=== PATIENT | female | born 1945 | race Caucasian/White ===

== ENCOUNTER 2020-06-05 12:22 | Outpatient (REF) | payer SELFPAY | END 2020-06-05 12:23 | disposition home or self-care (01) | LOC: HO.HAP 12:22 | PROVIDERS: Visit Provider Internal Medicine | DX: Z46.1 Encounter for fitting and adjustment of hearing aid (principal) | CPT/HCPCS: V5264 ==

== ENCOUNTER 2020-09-28 11:59 | Outpatient (REF) | payer MEDICARE, SELFPAY ==
--- NOTE | ~2020-09-28 | MM_ITS ---
EXAMINATION: MM SCREENING DIGITAL BREAST TOMOSYNTHESIS, BILATERAL CLINICAL INFORMATION: Screening. Asymptomatic. The lifetime risk of breast cancer based on the Tyrer-Cuzick Model is 6%. COMPARISON: Mammography: 09/23/2019, 09/20/2018, 06/12/2017 TECHNIQUE: Digital breast tomosynthesis is performed in both the craniocaudal and mediolateral oblique views along with computer-aided detection (CAD). Synthesized 2D images are generated from the tomosynthesis. Additional right CC and left MLO views are provided. FINDINGS: There are scattered areas of fibroglandular density (ACR BI-RADS breast composition Category b). There are no significant masses, abnormal calcifications, or other abnormalities. Parenchymal pattern is similar to prior studies. No developing density. No significant changes. MM/MM tomosynthesis screening BI IMPRESSION: No mammographic evidence of malignancy. ASSESSMENT: BI-RADS 1: Negative RECOMMENDATION: Routine annual mammography screening. This patient's information was entered into a reminder system with a target due date for their next mammogram.
== END 2020-09-28 12:00 | disposition home or self-care (01) ==
LOC: HO.MAMMO 11:59
PROVIDERS: PCP Internal Medicine; Visit Provider Internal Medicine
DX: Z12.31 Encounter for screening mammogram for malignant neoplasm of breast (principal)
CPT/HCPCS: 77063; 77067

== ENCOUNTER 2021-03-05 12:11 | Outpatient (REF) | payer SELFPAY | END 2021-03-05 12:12 | disposition home or self-care (01) | LOC: HO.HAP 12:11 | PROVIDERS: Visit Provider Internal Medicine | DX: Z46.1 Encounter for fitting and adjustment of hearing aid (principal); H90.3 Sensorineural hearing loss, bilateral | CPT/HCPCS: 99499 ==

== ENCOUNTER 2021-04-11 09:43 | Outpatient (REF) | payer MEDICARE, SELFPAY ==
--- NOTE | 2021-04-15 10:21 | MHC.AU.AHA ---
Adult Audiological Evaluation Date of Visit: 04/15/21 Reason for Appointment: History of asymmetrical hearing loss, secondary to Meniere's Disease. She arrives today to determine if there has been a change in hearing. Patient reports that she continues to experience tinnitus and dizziness. Previous Hearing Test Results: At this clinic on 07/20/2019- Right: Moderately-severe to severe sensorineural hearing loss. Left: Severe to profound sensorineural hearing loss. Ear History: Recent Ear Drainage: None Reported Recent Ear Pain: None Reported Recent Ear Infections: None Reported Medical History: Medical History: Meniere's Disease, Hypertension Hearing Instrument History- Right Ear: Rehabilitation Engineer: PhonSoteria Systems Model: Audeo V 90-13 Serial Number: [id number] Battery Size: 13 Dispensed By: [facility] Date of Fittin09/18/2015 Hearing Instrument History- Left Ear: Rehabilitation Engineer: Phonak Model: CROS II - 13 Serial Number: [id number] Battery Size: 13 Dispensed By: [facility] Date of Fittin09/18/2015 Otoscopy: Right Ear: Unremarkable Left Ear: Unremarkable Hearing Evaluation: Transducer(s) Used: Insert Earphones Method: Conventional Audiometry Stimuli Used: Pure Tones Right Ear: Description of Hearing: Moderately-severe to severe sensorineural hearing loss Left Ear: Description of Hearing: Severe to profound sensorineural hearing loss Speech Recognition Threshold (SRT): Method Used: Recorded Lists Stimuli Used: Spondee Words Right Ear: 65 dBHL Left Ear: 100 dBHL Word Discrimination: Method: Recorded Lists Word Lists Used: W-22 Right Ear: 60% at 90 dBHL Left Ear: Did not test (Established history of 0% word discrimination) Most Comfortable Level (MCL): Right Ear: 90 dBHL Left Ear: With monitored live voice, patient felt 100 dBHL was loud, but tolerable. With recorded stimuli during word discrimination, patient preferred 95 dBHL. Aided Testing: Aided word discrimination at 55 dBHL in soundfield is 80%. Comparison: Compared to the most recent evaluation: Hearing is stable. Recommendations: Audiological re-evaluation in one year. Hearing aid maintenance performed today. Hearing aid adjustments made at patient's request. She reports that certain sounds, such as planes flying overhead or fans, are too loud. She also feels when she is in a noisy setting that she is hearing more background noise than speech. Increased NoiseBlock. Lowered Loud gain by 3 steps. Patient will call if further adjustments are necessary. Patient is also interested in a new pair of hearing aids. She would like to try a different package lift operator other than Phonak, and would like to return to using two traditional hearing aids instead of a BiCROS system. Although there is poor word discrimination in the left ear, she misses having auditory input from the left side to help with localization and environmental awareness. Binaural word discrimination was tested today, which showed that auditory input into the left ear did not interfere or distract from speech understanding. She is interested in trying the Oticon More; however, it is currently only available in the rechargeable version. She would prefer the version with the disposable batteries, which Oticon will be releasing within the next few months. When they are released, she would like to come in to discuss them and trial them if possible. Patient also expressed that she does not feel her Meniere's Disease has been adequately addressed or managed by Ear, Nose, and Throat providers she has seen in the past. Recommended consulting with another specialty practice, such as [facility] in [place]. Diagnosis: Primary Diagnosis: H90.3 Bilateral Sensorineural Hearing Loss Signature: Provider: Aaron Barton, CCC-A
== END 2021-04-11 09:44 | disposition home or self-care (01) ==
LOC: HO.SH 09:43
PROVIDERS: Visit Provider Internal Medicine
DX: H90.3 Sensorineural hearing loss, bilateral (principal)
CPT/HCPCS: 92557

== ENCOUNTER 2021-04-11 10:54 | Outpatient (REF) | payer SELFPAY | END 2021-04-11 10:55 | disposition home or self-care (01) | LOC: HO.HAP 10:54 | PROVIDERS: Visit Provider Internal Medicine | DX: Z46.1 Encounter for fitting and adjustment of hearing aid (principal); H90.3 Sensorineural hearing loss, bilateral | CPT/HCPCS: 92700 ==

== ENCOUNTER 2021-04-22 08:55 | Outpatient (REF) | payer SELFPAY | END 2021-04-22 08:56 | disposition home or self-care (01) | LOC: HO.HAP 08:55 | PROVIDERS: Visit Provider Internal Medicine | DX: Z13.89 Encounter for screening for other disorder (principal) ==

== ENCOUNTER 2021-05-02 13:21 | Outpatient (REF) | payer SELFPAY ==
--- NOTE | 2021-05-02 14:34 | MHC.AU.FUR ---
Hearing Instrument Follow-Up Date of Visit: 05/02/21 Fish Housekeeper Used: Not Applicable Right Ear: Business Records Manager: Phonak Model: Audeo V 90-13 Serial Number: [id number] Repair Warranty: 11/11/2018 Battery Size: 13 Color: Silver Nguyen Waiter/Waitress Captain: #3 Power Type of Mold: Phonak Canal Lock Slim Tip#[id number] Warranty 09/23/2020 Type of Wax Guard: Cerustop Dispensed By: [facility] Date of Fittin09/18/2015 Follow-Up Summary: Patient has been wearing her most recent Phonak ITE aids while current right aid out for repair. The right aid is causing a sore with bleeding. Patient wants to wear her old 2006 Phonak YTR aids, but they are not updated to her most recent audiogram. Reprogrammed the 2006 ITEs to news audiogram; however, the right ear is very sore and she won't be able to use it for several days. Set up loaner Audeo P 13-T trial aids with #2 power receivers and medium power domes for both ears to use until at least the ear heals. Recommendations (Other): Will be calling patient with quote for right Audeo V 90 when received. Diagnosis Code(s): Primary Diagnosis: H90.3 Bilateral Sensorineural Hearing Loss Services Performed: HUBER Non-Quantity Charges: HANC: NonBillable Event Signature: Provider: Juan David White, [facility]
== END 2021-05-02 13:22 | disposition home or self-care (01) ==
LOC: HO.HAP 13:21
PROVIDERS: Visit Provider Internal Medicine
DX: Z13.89 Encounter for screening for other disorder (principal)

== ENCOUNTER 2021-05-07 09:36 | Outpatient (REF) | payer MEDICARE, SELFPAY ==
[2021-05-07 11:25] LABS: MANUAL DIFF FLAG NO
[2021-05-07 11:32] LABS: Appearance Urine CLEAR; Color Urine YELLOW; Glucose Urine UA NEG (NEG); Leukocyte Esterase Urine 1+ (NEG); Nitrite Urine NEG (NEG); Specific Gravity - Urine 1.015 (1.005-1.025); UACC Culture Trigger YES; Urine Blood NEG (NEG); Urine Ketones NEG (NEG); Urine Protein NEG (NEG-TRACE)
[2021-05-07 11:40] LABS: Basophils Percent Auto 0.5 % (0-2); Eosinophils Absolute Auto 0.1 X10*3/uL (0.0-0.4); Eosinophils Percent Auto 1.5 % (0-4); Hematocrit 43.7 % (37-47); Hemoglobin 14.2 g/dl (12.0-16.0); Lymphocytes Absolute Auto 1.4 X10*3/uL (1.2-4.9); Lymphocytes Percent Auto 36.2 % (20-40); Mean Corpuscular HGB Conc 32.5 g/dl (31.0-35.0); Mean Corpuscular Hemoglobin 30.5 pg (27.0-33.0); Mean Corpuscular Volume 93.8 fL (80-98); Mean Platelet Volume 12.6 fL (9.4-12.3); Monocytes Absolute Auto 0.4 X10*3/uL (0.1-1.2); Neutrophils Absolute Auto 2.1 X10*3/uL (2.0-8.3); Neutrophils Percent Auto 52.8 % (45-73); Platelet Count 173 X10*3/uL (160-400); Red Blood Count 4.66 X10*6/uL (4.20-5.50); Red Cell Distribution Width 13.2 % (11.0-16.0); White Blood Count 3.9 X10*3/uL (4.8-10.8)
[2021-05-07 11:49] LABS: Alanine Aminotransferase 10 U/L (0-31); Alkaline Phosphatase 96 U/L (39-117); Anion Gap 14 (12-20); Aspartate Amino Transferase 15 U/L (5-31); Blood Urea Nitrogen 9 mg/dL (9-16); Calcium 9.4 mg/dL (8.4-10.2); Carbon Dioxide 23 mmol/L (22-29); Chloride 110 mmol/L (96-108); Cholesterol 202 mg/dL; Estimated Glomerular Filt Rate 58; Glucose Random 101 mg/dL (60-115); HDL Cholesterol 75 mg/dL; LDL Cholesterol Calculated 103 mg/dl; Sodium 143 mmol/L (135-145); Total Protein 6.3 g/dL (6.5-8.0); Triglycerides 120 mg/dL
[2021-05-07 11:51] LABS: RBC Urine 0 /HPF (0); Squamous Epithelial Cell Urine 1+ /LPF; WBC Urine 0-2 /HPF (0-4)
[2021-05-07 11:57] LABS: Free T4 (Free Thyroxine) 0.97 ng/dL (0.71-1.85); Thyroid Stimulating Hormone 1.23 uIU/mL (0.32-4.0)
[2021-05-07 11:59] LABS: ~Hepatitis C Antibody Nonreactive (Nonreactive)
[2021-05-07 12:08] LABS: Vitamin B12 360 pg/mL (200-900)
== END 2021-05-07 09:37 | disposition home or self-care (01) ==
LOC: HO.HMGCLDS 09:36
PROVIDERS: PCP Internal Medicine; Visit Provider Internal Medicine
DX: Z11.59 Encounter for screening for other viral diseases (principal); I10 Essential (primary) hypertension; E78.00 Pure hypercholesterolemia, unspecified; K21.9 Gastro-esophageal reflux disease without esophagitis; R35.1 Nocturia; E53.8 Deficiency of other specified B group vitamins
CPT/HCPCS: 36415; 80053; 80061; 81001; 82306; 82607; 84439; 84443; 85025; 86803; 87086; 87147

== ENCOUNTER 2021-05-10 10:00 | Outpatient (REF) | payer SELFPAY ==
--- NOTE | 2021-05-10 10:58 | MHC.AU.FUR ---
Hearing Instrument Follow-Up Date of Visit: 05/10/21 Right Ear: Waiter/Waitress Cabin Class: Phonak Model: Audeo V 90-13 Serial Number: [id number] Repair Warranty: 04/30/2022 Battery Size: 13 Color: Silver Nguyen Personal Development Mentor: #3 Power Type of Mold: Phonak Canal Lock Slim Tip, #[id number], Warranty 04/30/2022 Type of Wax Guard: Cerustop Dispensed By: [facility] Date of Fittin09/18/2015 Follow-Up Summary: Right hearing aid repair set to last settings and fit to patient with patient reporting improved sound quality. She did not bring the left CROS aid, so told her she will likely need to schedule another appointment to pair the CROS to the Audeo V 90-13T. Patient is considering just wearing the right aid, but she will schedule an appointment if needed. Discussed how Sherman did not read my repair form notes, so aid problem was not diagnosed. Invoice which came with the repair had charges for the hearing aid repair and the canal lock slim tip. Repair was not requested for the canal lock on the repair form. Spoke with and e-mailed Sherman Machado, who credited the repair in full and the repair is valid warranty until 04/30/2022. Recommendations: Hearing instrument follow-up or maintenance as needed. Please contact our clinic with any questions or concerns. Diagnosis Code(s): Primary Diagnosis: H90.3 Bilateral Sensorineural Hearing Loss Services Performed: HUBER Non-Quantity Charges: HANC: NonBillable Event Signature: Provider: GIOVANI Duncan
== END 2021-05-10 10:01 | disposition home or self-care (01) ==
LOC: HO.HAP 10:00
PROVIDERS: Visit Provider Internal Medicine
DX: Z13.89 Encounter for screening for other disorder (principal)

== ENCOUNTER 2021-06-21 09:11 | Outpatient (REF) | payer MEDICARE, SELFPAY ==
--- NOTE | ~2021-06-21 | MM_ITS ---
EXAMINATION: BONE DENSITOMETRY CLINICAL INDICATION: Postmenopausal estrogen deficiency. COMPARISON: Previous BD dated 06/29/2015 and baseline BD dated 07/25/2008. TECHNIQUE: Using a [employer] DXA System (software version: 13.1) manufactured by [employer], dual-energy x-ray absorptiometry was performed of the lumbar spine and left hip. The images are of good technical quality. Summary results are attached. FINDINGS: AP SPINE L1-L4: Current: BMD 0.987 g/cm2, Z-score -0.4, T-score -1.6, osteopenia, 2.9% decrease from previous, 9.2% decrease from baseline (<5% change is not significant). Prior: BMD 1.017 g/cm2. Baseline: BMD 1.087 g/cm2. LEFT FEMUR, NECK: Current: BMD 0.779 g/cm2, Z-score -0.2, T-score -1.9, osteopenia. Prior: BMD 0.833 g/cm2. Baseline: BMD 0.872 g/cm2. LEFT FEMUR, TOTAL: Current: BMD 0.775 g/cm2, Z-score -0.3, T-score -1.8, osteopenia, 9.8% decrease from previous, 16.6% decrease from baseline (<5% change is not significant). Prior: BMD 0.859 g/cm2. Baseline: BMD 0.929 g/cm2. IDENTIFIED RISK FACTORS: Menopause, height loss, low calcium intake, right oophorectomy. HISTORY OF FRACTURE: None listed. MEDICATIONS: None listed. MM/XR DEXA axial skeleton IMPRESSION: 1. DIAGNOSIS: Osteopenia based on the lowest T-score value of -1.9 in the femoral neck applying World Health Organization criteria. 2. 10-YEAR FRACTURE RISK PREDICTION, FRAX: Major osteoporotic fracture (clinical spine, forearm, hip or shoulder) 14.4%. Hip fracture 3.8%. 3. Treatment Recommendations: NOF guidelines recommend consideration for treatment in postmenopausal women and men age 50 and older presenting with the following: -A hip or vertebral (clinical or morphometric) fracture. -T-score less than or equal to -2.5 at the femoral neck or spine after appropriate evaluation to exclude secondary causes. -Low bone mass at the hip or spine and a 10-year fracture probability by FRAX of greater than or equal to 3% for hip fracture or greater than or equal to 20% for major osteoporotic fracture based on the [place] adapted WHO algorithm. 4. Other Recommendations: All treatment decisions require clinical judgment and consideration of individual patient factors, including patient preferences, comorbidities, previous drug use, risk factors not captured in the FRAX model (e.g. frailty, falls, vitamin D deficiency, increased bone turnover, interval significant decline in bone density) and possible under or overestimation of fracture risk by FRAX. Additional medical evaluation for secondary cause of low bone mineral density may be appropriate. FUTURE SCAN RECOMMENDATION: People with diagnosed cases of osteoporosis or at high risk for fracture should have regular bone mineral density tests. For patients eligible for Medicare, routine testing is allowed once every 2 years. The testing frequency can be increased to one year for patients who have rapidly progressing disease, those who are receiving or discontinuing medical therapy to restore bone mass, or have additional risk factors.
== END 2021-06-21 09:12 | disposition home or self-care (01) ==
LOC: HO.MAMMO 09:11
PROVIDERS: Visit Provider Internal Medicine
DX: Z13.820 Encounter for screening for osteoporosis (principal); M85.80 Other specified disorders of bone density and structure, unspecified site; Z78.0 Asymptomatic menopausal state
CPT/HCPCS: 77080

== ENCOUNTER 2021-10-01 12:31 | Outpatient (REF) | payer SELFPAY ==
--- NOTE | 2021-10-02 11:37 | MHC.AU.HFU ---
Hearing Instrument Follow-Up- Binaural Date of Visit: 10/01/21 Right Ear: Vocational Rehabilitation Consultant: Phonak Model: Audeo V 90-13 Serial Number: [id number] Repair Warranty: 04/30/2022 Battery Size: 13 Color: Silver Nguyen Straight Tooth Gear Generator Operator: #1 Power Stretched with heat (Changed from #3 power today) Type of Mold: Phonak Canal Lock Slim Tip #[id number] Warranty 04/30/2022 Type of Wax Guard: Cerustop Dispensed By: [facility] Date of Fittin09/18/2015 Left Ear: Vocational Rehabilitation Consultant: Phonak Model: CROS II - 13 Serial Number: [id number] Repair Warranty: 11/11/2016 Battery Size: 13 Color: Silver Nguyen Straight Tooth Gear Generator Operator: #3 Type of Dome: Small open Dispensed By: [facility] Date of Fittin09/18/2015 Follow-Up Summary: Hearing Aid Problem - Patient reports last programming was initially OK , but then started having more trouble in June 2021. Manual program #1 she is in most of the time, but low pitched sounds such as motos, architectural intern are much too loud. Manual program #2 blocks background noise the best, but need voices/speech to be louder. Patient does not like Auto program at all. Patient also reports the right analysis mgr wire is too long with make aid move. Changed to right #1 power analysis mgr using heat to lengthen (patient given #3 power analysis mgr to hold). Performed maintenance with patient noticing improved sound quality. Made several changes, which mostly revolved around reducing the CRs for all programs, decreasing lows, and increasing high frequencies. Patient discussed being interested in possible Propeller Tester consultation at [facility]. Also discussed possible trial with new custom products. PATIENT WANTS TO RETURN TO BINAURAL HEARING AIDS RATHER THAN CROS SYSTEM. AT NEXT HEARING TEST, PERFORM BINAURAL SPEECH DISCRIMINATION. Recommendations: Patient will call if problems persist. Diagnosis Code(s): Primary Diagnosis: H90.3 Bilateral Sensorineural Hearing Loss Signature: Provider: Aaron White, [facility]
== END 2021-10-01 12:32 | disposition home or self-care (01) ==
LOC: HO.HAP 12:31
PROVIDERS: Visit Provider Internal Medicine
DX: Z13.89 Encounter for screening for other disorder (principal)

== ENCOUNTER 2021-10-04 10:52 | Outpatient (REF) | payer SELFPAY ==
--- NOTE | 2021-10-07 10:19 | MHC.AU.HFU ---
Hearing Instrument Follow-Up- Binaural Date of Visit: 10/04/21 Right Ear: Denial Resolution Specialist: Phonak Model: Audeo V 90-13 Serial Number: [id number] Repair Warranty: 04/30/2022 Battery Size: 13 Color: Silver Nguyen Unstacker: #3 Power Type of Mold: Phonak Canal Lock Slim Tip #[id number] Warranty 04/30/2022 Type of Wax Guard: Cerustop Dispensed By: [facility] Date of Fittin09/18/2015 Left Ear: Denial Resolution Specialist: Phonak Model: CROS II - 13 Serial Number: [id number] Repair Warranty: 11/11/2016 Battery Size: 13 Color: Silver Nguyen Unstacker: #3 Dispensed By: [facility] Date of Fittin09/18/2015 Follow-Up Summary: Patient reports that the size 1 curator zoological museum recently put on the right hearing aid is too short and has been pulling the mold out. She would like to switch it back to the size 3, which she brought with her today. The curator zoological museum was switched, and patient was pleased with the fit. She reports that the adjustments made at the last appointment have been great. Her only concern is that when she backs up her car, she can no longer hear the beeps that alert her she is getting close to something. She thinks the noise reduction may need to be backed off slightly. She does not want the first two programs changed at all since they have been working well. In the third program, NoiseBlock was reduced from 20 to 17. Patient will let us know if further adjustments are needed. Recommendations: Recommendations: Hearing instrument follow-up or maintenance as needed. Diagnosis Code(s): Primary Diagnosis: H90.3 Bilateral Sensorineural Hearing Loss Signature: Provider: Aaron Barton, [facility]
== END 2021-10-04 10:53 | disposition home or self-care (01) ==
LOC: HO.HAP 10:52
PROVIDERS: Visit Provider Internal Medicine
DX: Z13.89 Encounter for screening for other disorder (principal)

== ENCOUNTER 2021-11-06 09:16 | Outpatient (REF) | payer MEDICARE, SELFPAY ==
--- NOTE | ~2021-11-06 | CT_ITS ---
EXAMINATION: CT SINUS WITHOUT CONTRAST CLINICAL INFORMATION: Chronic sinusitis. Deviated septum. COMPARISON: None TECHNIQUE: 2 mm thin axial and reformatted 2 mm thin sagittal and coronal images of sinuses were obtained. This CT examination was performed using dose optimization techniques as appropriate, variously including the following: *Automated exposure control *Adjustment of mA and/or kV according to patient size (this includes techniques or standardized protocols for targeted exams where dose is matched to indication/reason for exam; i.e. extremities or head) *Use of iterative reconstruction technique DLP: 110 mGy-cm FINDINGS: FRONTAL SINUSES AND DRAINAGE PATHWAYS: Bilateral frontal sinuses are widely patent. The drainage pathways are patent.. MAXILLARY SINUSES AND DRAINAGE PATHWAYS: There is a small polyp in the floor of right maxillary sinus. The left maxillary sinus is clear. The ostiomeatal complexes are widely patent.. ETHMOID SINUSES: Normal. The ethmoid roofs are symmetric, with olfactory fossa depth of 0.5 on the right and 0.5 on the left. SPHENOID SINUSES AND DRAINAGE PATHWAYS: Normal. The sphenoid ostia are patent. The carotid canals are covered by bone. NASAL CAVITY/NASOPHARYNX: The nasal cavity is clear. There is there is mild deviation of nasal septum to the left. The nasopharynx is symmetric. ADDITIONAL RELEVANT FINDINGS: No periapical disease is seen. The TMJs articulate normally. The orbits and skull base soft tissues are unremarkable. The middle ear cavities and mastoid air cells are clear. Limited evaluation demonstrates no acute intracranial findings. CT/CT sinus wo con IMPRESSION: Small polyp or retention cyst floor of right maxillary sinus. Rest of the sinuses are clear. There is mild deviation of nasal septum to the left.
== END 2021-11-06 09:17 | disposition home or self-care (01) ==
LOC: HO.CT 09:16
PROVIDERS: Visit Provider Internal Medicine
DX: J32.0 Chronic maxillary sinusitis (principal); J34.2 Deviated nasal septum
CPT/HCPCS: 70486

== ENCOUNTER 2021-12-26 13:04 | Outpatient (REF) | payer SELFPAY ==
--- NOTE | 2021-12-27 13:19 | MHC.AU.HFU ---
Hearing Instrument Follow-Up- Binaural Date of Visit: 12/26/21 Right Ear: Cylinder Valve Repairer: Phonak Model: Audeo V 90-13 Serial Number: [id number] Repair Warranty: 04/30/2022 Type of Wax Guard: Cerustop Dispensed By: [facility] Date of Fittin09/18/2015 Left Ear: Cylinder Valve Repairer: Phonak Model: CROS II - 13 Serial Number: [id number] Repair Warranty: 11/11/2016 Dispensed By: [facility] Date of Fittin09/18/2015 Follow-Up Summary: Patient is considering new hearing aids. She does not want to use a CROS system again. Hearing aid options were discussed. She is debating between trying a pair of hearing aids, or just using one on the right ear. Discussed that it would be probably be more beneficial to try a pair to start, as the left side can be returned in the trial period if she does not like it. Binaural word discrimination testing was performed at the last audiological evaluation and showed that the left ear does not seem to interfere with overall speech understanding. She would also like to return to a custom ITE/ITC style. She has some reservations with customs, however, as a pair she had in the past had caused pressure sores and needed to be remade several times. She indicated theses sores were mostly higher on the pinna. Discussed that we could still give it a try with a new set of impressions, and could do an ITC so it does not touch the part of the ear that was irritated before. She was interested in Bluetooth connectivity and use of an ashley for volume control. She has an iPhone. She is also debating between getting a mid-level or high-level product. She currently has a high-level product, but has had mid-levels in the past. Since the higher level products have more features that can be adjusted, she questions if maybe this is too much, and if she needs something simpler. She also asked if the dental equipment mechanic/mold that was switched at the last visit could be switched back to the dental equipment mechanic/mold from before. She reports that although the dental equipment mechanic wire causes discomfort, she can hear much better with that mold. The dental equipment mechanic on both molds is a size 3. She has been told in the past that she could try a size 2 dental equipment mechanic with it, but we do not have one in stock. Discussed that we do not routinely re-stock those receivers, as they are for an older model. If she would like, we could order one for $175. She would like more time to consider her options. She wants to try the hearing aid with the dental equipment mechanic/mold as it is for a few weeks. If she feels she is hearing better, she may decide to purchase a size 2 dental equipment mechanic to try. If she feels she still isn't hearing well enough, she may decide to go forward with a new pair of hearing aids. Impressions were taken bilaterally without incident and will kept in the Hold drawer until patient makes her decision. Initially, Raz hearing aids were discussed; however, it was later realized that the [employer] wireless customs only come in rechargeable. Patient does not want a rechargeable product. We may have to consider Phonak Virto P, Oticon OPN, or Signia Insio Nx, as those all have Bluetooth and regular batteries. Recommendations: Patient will contact us to discuss how she wants to proceed. Diagnosis Code(s): Primary Diagnosis: H90.3 Bilateral Sensorineural Hearing Loss Signature: Provider: Aaron Barton, CCC-A
== END 2021-12-26 13:05 | disposition home or self-care (01) ==
LOC: HO.HAP 13:04
PROVIDERS: Visit Provider Internal Medicine
DX: Z13.89 Encounter for screening for other disorder (principal)

== ENCOUNTER 2022-01-10 11:01 | Outpatient (REF) | payer SELFPAY | END 2022-01-10 11:02 | disposition home or self-care (01) | LOC: HO.HAP 11:01 | PROVIDERS: Visit Provider Internal Medicine | DX: Z46.1 Encounter for fitting and adjustment of hearing aid (principal) | CPT/HCPCS: 92591 ==

== ENCOUNTER 2022-01-10 11:31 | Outpatient (REF) | payer MEDICARE, SELFPAY ==
--- NOTE | ~2022-01-10 | MM_ITS ---
EXAMINATION: MM SCREENING DIGITAL BREAST TOMOSYNTHESIS, BILATERAL CLINICAL INFORMATION: Screening. Asymptomatic. The lifetime risk of breast cancer based on the Tyrer-Cuzick Model is 4%. COMPARISON: Mammography: 09/28/2020, 09/23/2019, 09/20/2018, 06/12/2017 TECHNIQUE: Digital breast tomosynthesis is performed in both the craniocaudal and mediolateral oblique views along with computer-aided detection (CAD). Synthesized 2D images are generated from the tomosynthesis. FINDINGS: There are scattered areas of fibroglandular density (ACR BI-RADS breast composition Category b). Right breast has a focal nodular asymmetric density just under 0.5 cm mid 8:30 o'clock position, representing change from prior studies. Patient will be recalled for additional imaging. The remainder of the breasts show parenchymal pattern is similar to prior studies. There is no abnormal calcifications. The axilla and skin contours are unremarkable. MM/MM tomosynthesis screening BI IMPRESSION: Right: -Focal asymmetric density just under 5 mm, mid 8:30 o'clock position. Left: -No mammographic evidence of malignancy. ASSESSMENT: BI-RADS 0: Incomplete - Need Additional Imaging Evaluation RECOMMENDATION: 1. Additional views of the right breast (spot CC, spot MLO, standard ML). 2. Targeted ultrasound right breast. 3. Radiology department staff will contact the patient for additional imaging. This patient's information was entered into a reminder system with a target due date for their next mammogram.
== END 2022-01-10 11:32 | disposition home or self-care (01) ==
LOC: HO.MAMMO 11:31
PROVIDERS: PCP Internal Medicine; Visit Provider Internal Medicine
DX: Z12.31 Encounter for screening mammogram for malignant neoplasm of breast (principal)
CPT/HCPCS: 77063; 77067

== ENCOUNTER 2022-01-27 08:42 | Outpatient (REF) | payer MEDICARE, SELFPAY ==
--- NOTE | ~2022-01-27 | US_ITS ---
EXAMINATION: MM DIAGNOSTIC DIGITAL BREAST TOMOSYNTHESIS, RIGHT Targeted right breast ultrasound CLINICAL INFORMATION: Right breast density laterally COMPARISON: Mammography: January 10, 2022 and studies dating back to July 12, 2012 TECHNIQUE: Digital breast tomosynthesis is performed. 2D images are generated from the tomosynthesis. The following views are obtained: 90 degree mediolateral full field view and spot compression views in craniocaudal and mediolateral oblique projections. Targeted right breast ultrasound. FINDINGS: There are scattered areas of fibroglandular density (ACR BI-RADS breast composition Category b). Additional views demonstrate persistence of a 5 x 4 mm density about the lateral aspect of the right breast. No associated microcalcifications are identified. Portions of the circumferential are somewhat irregular. This lies approximately 7 cm from the nipple. Targeted right breast ultrasound demonstrated at the 9:00 position approximately 6 cm from nipple a hypoechoic and irregularly marginated density which is taller than it is wide without distal sound enhancement or shadowing measuring 5 x 3 x 4 mm in size. No internal vascularity was appreciated. Recommend ultrasound-guided biopsy of this lesion. Results are discussed with the patient at time of visit. Mammography Center patient navigator will call referring physician's office with the above recommendation. US/US breast RT limited IMPRESSION: Right breast density laterally for which ultrasound-guided core biopsy is recommended. ASSESSMENT: BI-RADS 4: Suspicious RECOMMENDATION: Ultrasound-guided core biopsy right breast lesion.
--- NOTE | ~2022-01-27 | MM_ITS ---
EXAMINATION: MM DIAGNOSTIC DIGITAL BREAST TOMOSYNTHESIS, RIGHT TARGETED RIGHT BREAST ULTRASOUND CLINICAL INFORMATION: Right breast density laterally. COMPARISON: Mammography: 01/10/2022 and studies dating back to 07/12/2012. TECHNIQUE: Digital breast tomosynthesis is performed. 2D images are generated from the tomosynthesis. The following views are obtained: 90-degree mediolateral full field view and spot compression views in craniocaudal and mediolateral oblique projections. Targeted right breast ultrasound. FINDINGS: There are scattered areas of fibroglandular density (ACR BI-RADS breast composition Category b). Additional views demonstrate persistence of a 5 x 4 mm density about the lateral aspect of the right breast. No associated microcalcifications are identified. Portions of the circumference are somewhat irregular. This lies approximately 7 cm from the nipple. Targeted right breast ultrasound demonstrated at the 9 o'clock position approximately 6 cm from nipple a hypoechoic and irregularly marginated density, which is taller than it is wide, without distal sound enhancement or shadowing measuring 5 x 3 x 4 mm in size. No internal vascularity was appreciated. Recommend ultrasound-guided biopsy of this lesion. Results are discussed with the patient at time of visit. [facility]ography Center patient navigator will call referring physician's office with the above recommendation. MM/MM tomosynthesis added views R IMPRESSION: Right breast density laterally for which ultrasound-guided core biopsy is recommended. ASSESSMENT: BI-RADS 4: Suspicious. RECOMMENDATION: Ultrasound-guided core biopsy right breast lesion.
== END 2022-01-27 08:43 | disposition home or self-care (01) ==
LOC: HO.MAMMO 08:42
PROVIDERS: PCP Internal Medicine; Visit Provider Internal Medicine
DX: R92.2 Inconclusive mammogram (principal)
CPT/HCPCS: 76642; 77061; 77065

== ENCOUNTER → 2022-01-28 08:30 | Outpatient (BNVA) | payer MEDICARE, SELFPAY | PROVIDERS: PCP Internal Medicine; Visit Provider Surgery | DX: R92.8 Other abnormal and inconclusive findings on diagnostic imaging of breast (principal) | CPT/HCPCS: 99202 ==

== ENCOUNTER 2022-01-29 07:49 | Outpatient (REF) | payer MEDICARE, SELFPAY ==
--- NOTE | ~2022-01-29 | MM_ITS ---
PROCEDURE: US GUIDED BREAST BIOPSY, RIGHT CLINICAL INFORMATION: Indeterminate right breast density 9:00 position 6 cm from the nipple COMPARISON: January 27, 2022 PROCEDURAL DETAILS: The details of the procedure, as well as the risks, benefits, and alternatives to the procedure were explained to the patient in detail and all of her questions were answered, after which written informed consent was obtained. Site and side were confirmed. Prior to the procedure, sonography revealed an isoechoic solid-appearing lesion not o'clock position 6 cm from nipple measuring approximately 4 mm in diameter.. A time-out was performed, the lesion intended for biopsy was targeted, and the skin of the right breast was then prepped and draped in the usual sterile fashion. Using sonographic guidance, sterile technique, and 1% lidocaine without epinephrine for local anesthesia, multiple automated core biopsies were obtained through the targeted area with a 14G spring loaded Achieve core biopsy device. There was real-time confirmation of appropriate needle passage. Sampling was documented. At the completion of tissue sampling, a single butterfly-shaped metallic clip was deposited at the biopsy site. There was no evidence of immediate complication. SPECIMEN: An appropriate sample was obtained. DIGITAL POST-PROCEDURE MAMMOGRAPHY: Breast density: The tissue contains scattered areas of fibroglandular density. BI-RADS version 5, category B. There are no new mammographic findings demonstrated. The postprocedure 2-view direct digital mammogram reveals satisfactory positioning of the biopsy clip. The patient tolerated the procedure well and, after assuring adequate hemostasis, was discharged in good condition after reviewing postbiopsy breast care instructions. Final pathology results are pending. MM/MM tomosynthesis diagnostic RT IMPRESSION: 1. No immediate complication from ultrasound-guided percutaneous biopsy right breast. 2. Ultrasound was used to localize and guide marker clip placement. 3. The 2-view direct digital postprocedure mammogram reveals satisfactory positioning of the biopsy clip. 4. Final pathology results are pending. A separate report with final recommendations will be issued once these results are made available.
[2022-01-29] MEDS: Lidocaine HCl 1 % 20 ML VIAL 10 ML SUBCUT (09:06)
== END 2022-01-29 07:50 | disposition home or self-care (01) ==
LOC: HO.MAMMO 07:49
PROVIDERS: Visit Provider Surgery
DX: R92.8 Other abnormal and inconclusive findings on diagnostic imaging of breast (principal)
CPT/HCPCS: 19083; 77061; 77065; 88305; 88342; 88360

== ENCOUNTER → 2022-02-04 14:33 | Outpatient (BNVA) | payer MEDICARE, SELFPAY | PROVIDERS: PCP Internal Medicine; Visit Provider Surgery | DX: C50.411 Malignant neoplasm of upper-outer quadrant of right female breast (principal); Z17.0 Estrogen receptor positive status [ER+]; Z98.890 Other specified postprocedural states | CPT/HCPCS: 99212 ==

== ENCOUNTER 2022-02-07 09:47 | Outpatient (REF) | payer MEDICARE, SELFPAY ==
[2022-02-07 11:12] LABS: MANUAL DIFF FLAG NO
[2022-02-07 11:24] LABS: Basophils Absolute Auto 0.1 X10*3/uL (0.0-0.2); Basophils Percent Auto 1.2 % (0-2); Eosinophils Absolute Auto 0.1 X10*3/uL (0.0-0.4); Eosinophils Percent Auto 1.2 % (0-4); Hematocrit 44.6 % (37.0-47.0); Imm Gran Abs Auto 0.02 X10*3/uL (0.00-0.03); Imm Gran Pct Auto 0.4 % (0.0-0.4); Lymphocytes Absolute Auto 1.6 X10*3/uL (1.2-4.9); Lymphocytes Percent Auto 31.4 % (20-40); Mean Corpuscular HGB Conc 33.6 g/dl (31.0-35.0); Mean Corpuscular Hemoglobin 31.6 pg (27.0-33.0); Mean Corpuscular Volume 93.9 fL (80.0-98.0); Mean Platelet Volume 12.4 fL (9.4-12.3); Monocytes Absolute Auto 0.4 X10*3/uL (0.1-1.2); Monocytes Percent Auto 7.4 % (2-11); Neutrophils Absolute Auto 2.9 x10*3/uL (2.0-8.3); Neutrophils Percent Auto 58.4 % (45-73); Platelet Count 169 X10*3/uL (160-400); Red Blood Count 4.75 X10*6/uL (4.20-5.50); Red Cell Distribution Width 13.2 % (11.0-16.0)
[2022-02-07 11:32] LABS: Appearance Urine CLEAR; Color Urine YELLOW; Glucose Urine UA NEG (NEG); Leukocyte Esterase Urine TRACE (NEG); Nitrite Urine NEG (NEG); PH 6.5 (5.0-8.0); Urine Blood NEG (NEG); Urine Ketones NEG (NEG); Urine Protein NEG (NEG-TRACE)
[2022-02-07 11:50] LABS: Alanine Aminotransferase 12 U/L (0-31); Albumin Level 4.1 g/dL (3.5-5.0); Alkaline Phosphatase 100 U/L (39-117); Anion Gap 12 (12-20); Aspartate Amino Transferase 14 U/L (5-31); Bilirubin Total 0.8 mg/dL (0.0-1.0); Blood Urea Nitrogen 16 mg/dL (9-16); Calcium 9.4 mg/dL (8.4-10.2); Carbon Dioxide 27 mmol/L (22-29); Chloride 107 mmol/L (96-108); Cholesterol 205 mg/dL; Estimated Glomerular Filt Rate 52; Glucose Random 100 mg/dL (60-115); HDL Cholesterol 78 mg/dL; LDL Cholesterol Calculated 108 mg/dl; Potassium 4.2 mmol/L (3.3-5.1); Sodium 142 mmol/L (135-145); Total Protein 6.8 g/dL (6.5-8.0); Triglycerides 97 mg/dL
[2022-02-07 11:59] LABS: Thyroid Stimulating Hormone 1.21 uIU/mL (0.32-4.0); Vitamin D 25-OH Total 20.8 ng/mL (>30)
[2022-02-07 12:01] LABS: RBC Urine 0-2 /HPF (0); Squamous Epithelial Cell Urine TRACE /LPF; WBC Urine 0-2 /HPF (0-4)
[2022-02-07 12:02] LABS: Renal Epithelial Cells Urine TRACE /LPF
== END 2022-02-07 09:48 | disposition home or self-care (01) ==
LOC: HO.HMGCLDS 09:47
PROVIDERS: PCP Internal Medicine; Visit Provider Internal Medicine
DX: I10 Essential (primary) hypertension (principal); E78.00 Pure hypercholesterolemia, unspecified; E55.9 Vitamin D deficiency, unspecified
CPT/HCPCS: 36415; 80053; 80061; 81001; 82306; 84443; 85025

== ENCOUNTER 2022-02-07 12:35 | Outpatient (REF) | payer SELFPAY | END 2022-02-07 12:36 | disposition home or self-care (01) | LOC: HO.HAP 12:35 | PROVIDERS: Visit Provider Internal Medicine | DX: Z46.1 Encounter for fitting and adjustment of hearing aid (principal); H90.3 Sensorineural hearing loss, bilateral | CPT/HCPCS: V5259 ==

== ENCOUNTER 2022-02-10 06:36 | Day surgery (SDC) | payer MEDICARE, SELFPAY ==
--- NOTE | 2022-02-06 14:16 | P.CONAN_ITS ---
HPI - Anesthesia Eval Consult details Narrative: 77yo F for Right Breast Lumpectomy/Needle Loc, [place] Node Biopsy PMFSH Active Problems Active Problems: All Active Problems (Updated 02/04/22 @ 16:16 by Luis Fernando Batista MD) Invasive ductal carcinoma of right breast (Acute) Abnormal ultrasound of breast (Acute) Abnormal mammogram of right breast (Acute) Past Medical History Medical History GERD (gastroesophageal reflux disease) HLD (hyperlipidemia) HTN (hypertension) Meniere disease Migraines Family History Family History Father Lung cancer Maternal Aunt Breast cancer Uterine cancer Maternal Grandmother Throat cancer Maternal Uncle Throat cancer Surgical History Surgical History (Updated 02/10/22 @ 08:19 by Kathy Dunbar RN) History of appendectomy History of cholecystectomy History of D&C History of lumpectomy of left breast History of removal of ovarian cyst Hx of bilateral cataract extraction Social History Social History Alcohol intake: never Patient Tobacco Use Status: Never used Tobacco Meds Allergies Allergy/AdvReac Type Severity Reaction Status Date / Time clindamycin [CLINDAMYCIN] Allergy Severe SEVERE RASH Verified 02/10/22 07:12 cefaclor [From CECLOR] Allergy Intermediate RASH Verified 02/10/22 07:12 hydrochlorothiazide Allergy Intermediate MUSCLE Verified 02/10/22 07:12 [HYDROCHLOROTHIAZIDE] CRAMPING Ceclor Allergy Unknown rash Uncoded 02/04/22 14:42 HCTZ Allergy Unknown rash Uncoded 02/04/22 14:42 Home Medications Medication Instructions Recorded Confirmed Last Taken Type atenolol 25 mg tablet 25 mg PO DAILY 01/28/22 02/10/22 02/10/22 05:45 History atorvastatin 20 mg tablet 20 mg PO DAILY 01/28/22 02/10/22 Unknown History qnntuumngd-vmrdqnannsqrp-nizokkxt 1 tab PO Q4H 01/28/22 02/10/22 Unknown History 50 mg-325 mg-40 mg tablet lorazepam 0.5 mg tablet 0.5 mg PO BID PRN Anxiety 01/28/22 02/10/22 Unknown History meclizine 25 mg tablet 25 mg PO TID 01/28/22 02/10/22 Unknown History Exam Exam Date and Time: February 06, 2022 1416 Assessment and Plan Assessment Anesthesia Assessment: Chart Reviewed
[2022-02-10] VITALS (8 sets, daily range): BP systolic 122–180; BP diastolic 66–90; PULSE 61–81; RESP 16–18; TEMP 35.9–36.3; O2SAT 92–98; BMI 27.6
--- NOTE | ~2022-02-10 | NM_ITS ---
PROCEDURE: NM LYMPH SCINTIGRAPHY CLINICAL INFORMATION: Right breast malignant neoplasm. COMPARISON: None TECHNIQUE: Following explaining right breast sentinel node procedure, benefits and risk, a written consent was obtained by Dr. Wen. The area around the right areola was coated with 0.4% lidocaine for 30 minutes post right breast needle localization. The area around the right breast areola was then cleaned in an aseptic manner. 0.5 mCi of 99m technetium lymphocytic divided in 4 equal doses was subcutaneously injected in 4 quadrants around the right breast areola. Imaging was obtained 30 minutes later. Patient tolerated procedure extremely well. FINDINGS: On right breast [place] imaging there are 4 areas of activity seen around the areola. There is a solitary sentinel node seen in the right anterior axilla. No additional lymph node seen. NM/NM sentinel node w imaging IMPRESSION: Solitary right axillary lymph node on right breast [place] node study.
--- NOTE | ~2022-02-10 | MM_ITS ---
EXAMINATION: MM MAMMOGRAM GUIDED NEEDLE LOCALIZATION BREAST, RIGHT MM NEEDLE LOCALIZATION SPECIMEN FROM THE RIGHT BREAST CLINICAL INFORMATION: Invasive carcinoma with ductal and lobular features right breast. 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 COMPARISON: Mammography 01/10/2022, 01/27/2022, 01/29/2022, targeted right breast ultrasound 01/27/2022, ultrasound-guided core biopsy 01/29/2022 TECHNIQUE NEEDLE LOC: Proper informed consent is obtained from the patient after discussion of the procedure, potential risks and complications, and alternatives including declining the procedure today. Patient was given an opportunity for questions. The patient appeared to understand. The patient consented to the procedure and signed the consent form. GUIDANCE: Digital mammography. APPROACH: Lateral Medial. TARGET: Small nodular asymmetric density with superimposed biopsy clip marker. ANESTHESIA: Carbonated lidocaine 1%: 5 mL. LOCALIZATION MARKER: [place] M[employer]. 7.5 cm length. The skin is prepped and local anesthesia administered. The needle is positioned and position assessed with mammography. The wire is hooked into position. [place] needle protector placed. The patient tolerated the procedure well and had no immediate complication. Following the procedure, 4% lidocaine ointment was administered to the left areola and covered with Tegaderm in anticipation of nuclear lymphoscintigraphy injection for sentinel lymph node mapping. Procedure results called to medical records assistant (Kamilla) for Dr. Batista following the procedure. TECHNIQUE SPECIMEN RADIOGRAPH: Imaging of the excised specimen is performed using digital mammography in 2 views. FINDINGS SPECIMEN RADIOGRAPH: The distal localization needle and distal hookwire are delivered intact within the specimen. The proximal needle and hookwire are previously sectioned in the OR. The biopsy clip marker and parenchymal nodule representing the primary lesion are within the specimen adjacent to the localization device. Results were called to Dr. Luis Fernando Batista in the operating room at the time of imaging. MM/MM needle loc RT IMPRESSION: 1. Status post right breast needle localization with wire hooked into position. 2. Post operative specimen radiograph obtained.
[2022-02-10] MEDS: Lactated Ringers 1,000 ML 100 ML IVCONT (08:03)
[2022-02-10] MEDS: Lidocaine HCl 1 % 20 ML VIAL 9 ML SUBCUT (09:03)
[2022-02-10] MEDS: Sodium Bicarbonate 8.4% 50 MEQ/50 ML VIAL SUBCUT (09:05)
--- NOTE | 2022-02-10 10:29 | HO.ANESPROP2 ---
[facility] Active Problems Active Problems: All Active Problems (Updated 02/06/22 @ 14:18 by Ryanne Amaya NP) Abnormal mammogram of right breast (Acute) Abnormal ultrasound of breast (Acute) Invasive ductal carcinoma of right breast (Acute) Past Medical History Medical History GERD (gastroesophageal reflux disease) HLD (hyperlipidemia) HTN (hypertension) Meniere disease Migraines Patient : No Family History Family History Father Lung cancer Maternal Aunt Breast cancer Uterine cancer Maternal Grandmother Throat cancer Maternal Uncle Throat cancer Family history of problems with anesthesia: No Surgical History Surgical History (Updated 02/10/22 @ 08:19 by Kathy Dunbar RN) History of appendectomy History of cholecystectomy History of D&C History of lumpectomy of left breast History of removal of ovarian cyst Hx of bilateral cataract extraction History of Problems with Anesthesia: No Social History Social History Alcohol intake: never Patient Tobacco Use Status: Never used Tobacco Use of substances other than those prescribed or required for medical reasons: No Are you DNR?: No Advance Directives: No Advance Directives Information Provided: Yes Meds Allergies Allergy/AdvReac Type Severity Reaction Status Date / Time clindamycin [CLINDAMYCIN] Allergy Severe SEVERE RASH Verified 02/10/22 07:12 cefaclor [From CECLOR] Allergy Intermediate RASH Verified 02/10/22 07:12 hydrochlorothiazide Allergy Intermediate MUSCLE Verified 02/10/22 07:12 [HYDROCHLOROTHIAZIDE] CRAMPING Ceclor Allergy Unknown rash Uncoded 02/04/22 14:42 HCTZ Allergy Unknown rash Uncoded 02/04/22 14:42 Active Medications: Current Medications Lactated Ringer's (Lr) 1,000 mls @ 100 mls/hr IVCONT .Q10H EMILE Last Admin: 02/10/22 08:03 Dose: 100 mls/hr Pharmacy Consult (Consult Rx Vancomycin Dosing) 1 each MISCELLANE DAILY PRN PRN Reason: Consult order Home Medications Medication Instructions Recorded Confirmed Last Taken Type atenolol 25 mg tablet 25 mg PO DAILY 01/28/22 02/10/22 02/10/22 05:45 History atorvastatin 20 mg tablet 20 mg PO DAILY 01/28/22 02/10/22 Unknown History ccboktlrpt-jcvnmpqlffche-tspatklx 1 tab PO Q4H 01/28/22 02/10/22 Unknown History 50 mg-325 mg-40 mg tablet lorazepam 0.5 mg tablet 0.5 mg PO BID PRN Anxiety 01/28/22 02/10/22 Unknown History meclizine 25 mg tablet 25 mg PO TID 01/28/22 02/10/22 Unknown History Exam Exam Date and Time: February 10, 2022 1029 Height,Weight and Vital Signs: Height 5 ft 8.25 in Weight 83.234 kg Last Vital Signs Temp 96.6 F L 02/10/22 07:25 Pulse 61 02/10/22 07:25 Resp 16 02/10/22 07:25 BP 180/87 H 02/10/22 07:25 Pulse Ox 98 02/10/22 07:25 O2 Del Method 02/10/22 07:25 Airway Mallampati Class: II TM Dist: >3cm Neck ROM: Full Loose/Missing/Broken Teeth: No Heart: rrr Lungs: clear Assessment and Plan Final Anesthetic Review Family History of Problems with Anesthesia: No History of Problems with Anesthesia: No NPO: Yes ASA Class: II Final Preanesthetic Review: No Changes in Pt Med Stat, Meds/Allgs Chart Reviewed, Consent Obtained/Reviewed and Anes Risks/Benef Reviewed Patient Risk: Intermediate Procedure Risk: Low Anesthetic Plan Anesthetic Plan: GA Disposition: Standard PACU
--- NOTE | 2022-02-10 12:11 | W.PM.OPN ---
Operative Note Operative Note Date of Service: 02/10/22 Narrative: Preoperative diagnosis: Right breast carcinoma Postoperative diagnosis: same Procedure: right breast lumpectomy with needle localization, right sentinel node biopsy Surgeon: Luis Fernando Batista MD Outreach Analyst: Alyson Easton PA-C, NIHARIKA Tracy Anesthesia: general LMA Indications for procedure: 77-year-old female patient with a new density noted in the right breast at the 9 o'clock position felt to be suspicious for malignancy. Subsequent ultrasound guided core biopsy revealed invasive breast carcinoma, right breast, with both lobular ductal features and DCIS, ER/ NM positive, HER2 Blake negative. She presents today for right breast lumpectomy with needle localization, right sentinel biopsy. Operative findings: Biopsy cavity and marking clip found within the specimen on both specimen x-ray and gross pathology. One sentinel node identified, no additional radio activity once removed. Specimen: 1. Right breast lumpectomy 2. [place] node 1 , 3. additional axillary contents Estimated blood loss: 5 mL Complications:none Procedure details: patient was brought to the OR placed in a supine position. After administering general anesthesia the patient's right breast was prepped ChloraPrep and draped in a sterile fashion. A surgical time-out was called and consent confirmed. Patient received preoperative antibiotics and Venodyne boots were in place. A localizing needle was placed in the 9 o'clock position. Curvilinear incision was made between the entrance of the needles and the nipple-areolar complex. The incision was carried down through subcutaneous tissue and superior inferior skin flaps created with electrocautery. Sharp dissection was then used to dissect around the needle tip, which was located in medial margin. Dissection was then continued below the needle again with sharp dissection Metzenbaum scissors. Superior inferior margins were then excised followed by the lateral margin. The specimen was removed and sent to pathology for further examination is. Specimen was marked with a long suture on the lateral margin short suture on the superior margin and loop suture on the posterior / deep margin.Wounds were checked for hemostasis which was assured using electrocautery. Wounds were irrigated with saline solution and suctioned dry. Attention was then directed to the right axilla where the gamma probe was used to identify the area of greatest radio activity. Curvilinear incision was made in the anterior axilla carried out through subcutaneous tissue. Dissection was continued past the clavipectoral fascia into the axillary compartment. Again guided by the gamma probe area of increased reactivity was identified and grasped with the Allis clamp. Was dissected both bluntly and with electrocautery. A hot node was identified and sent as sentinel node 1. Rescanning of the axilla revealed no additional activity. Palpation did reveal a slightly enlarged lymph node which was excised and sent as additional axillary contents. Wounds were then checked for hemostasis. Hemostasis was assured using electrocautery. Wounds were then irrigated with saline solution and suctioned. Deep clavipectoral fascia was then closed using interrupted 3-0 Polysorb sutures. Dermis was reapproximated using interrupted 3-0 Polysorb sutures. Skin was closed in the axilla using a running subcuticular 4-0 Polysorb suture. Once confirmation of clean margins was obtained from the pathology department, the deep breast tissue and superficial breast tissue was reapproximated using interrupted 3-0 Polysorb sutures. Dermis was then closed using interrupted 3-0 Polysorb sutures. Skin was closed using a running subcuticular 4-0 Polysorb suture. Steri-Strips, 2 x 2 gauze, and Tegaderm were then applied to both incisions. The patient tolerated the procedure well. Sponge, instrument, and needle counts reported as correct. Patient was transferred to PACU in stable condition. Breast [place] Node Biopsy Substrate(s) used for sentinel node biopsy in the non-neoadjuvant setting: Radiotracer Substrate(s) used for sentinel node biopsy in the neoadjuvant setting: N/A All colored nodes or non-colored nodes present at the end of a dye filled lymphatic channel were removed, if dye was used as the substrate for localization: N/A All significantly radioactive nodes were removed, if radionuclide was used as the substrate for localization: Yes All palpably suspicious nodes were removed, if present: Yes If clips were placed in pathology-involved nodes, those nodes were identified and removed: N/A General Surg. - Synoptic Notes Breast [place] Node Biopsy Substrate(s) used for sentinel node biopsy in the non-neoadjuvant setting: Radiotracer Substrate(s) used for sentinel node biopsy in the neoadjuvant setting: N/A All colored nodes or non-colored nodes present at the end of a dye filled lymphatic channel were removed, if dye was used as the substrate for localization: N/A All significantly radioactive nodes were removed, if radionuclide was used as the substrate for localization: Yes All palpably suspicious nodes were removed, if present: Yes If clips were placed in pathology-involved nodes, those nodes were identified and removed: N/A
== END 2022-02-10 14:30 | disposition home or self-care (01) ==
PROVIDERS: PCP Internal Medicine; Visit Provider Surgery
PROC: (CPT 19301; principal; 2022-02-10 11:00)
PROC: (CPT 19301; 2022-02-10 11:00)
DX: C50.811 Malignant neoplasm of overlapping sites of right female breast (principal); Z17.0 Estrogen receptor positive status [ER+]; I10 Essential (primary) hypertension; E78.5 Hyperlipidemia, unspecified; H81.09 Meniere's disease, unspecified ear; G43.909 Migraine, unspecified, not intractable, without status migrainosus; Z99.89 Dependence on other enabling machines and devices; Z88.1 Allergy status to other antibiotic agents; Z88.8 Allergy status to other drugs, medicaments and biological substances
CPT/HCPCS: 19301; 38525; 19281; 78195; 88305; 88307; 88329; 88342; A4648; A9520; J0461; J0690; J1100; J2250; J2370; J2405; J3010

== ENCOUNTER 2022-02-19 13:44 | Outpatient (REF) | payer MEDICARE, SELFPAY ==
--- NOTE | 2022-02-19 16:58 | MHC.AU.HFU ---
Hearing Instrument Follow-Up- Binaural Date of Visit: 02/19/22 Right Ear: Manager Java: [employer] Model: Linx Quatro 7 [id number] Serial Number: [id number] Repair Warranty: 03/05/2025, Remake 03/05/2023 Loss and Damage Warranty: 03/05/2025 Battery Size: 312 Color: Puako Warranty 04/30/2022 Dispensed By: [facility] Date of Fittin02/07/2022 Left Ear: Manager Java: ReSound Model: Linx Quatro 7 [id number] Serial Number: [id number] Repair Warranty: 03/05/2025, Remake 03/05/2023 Loss and Damage Warranty: 03/05/2025 Battery Size: 312 Color: Puako Dispensed By: [facility] Date of Fittin02/07/2022 Follow-Up Summary: 2 Week F/U Patient reports trouble with aids being too loud, echo, own voice very loud, high frequency sounds bothersome (doors closing, high heels, silverware, voices are muffled. Best thing is she can hear the birds. Decreased overall gain 3 dB then decreased 3182-3091 Hz several steps overall until the above sounds were not making her jump. Then discussed how she won't hear the birds as well. Trouble with TV, advised trying bluetooth speakers placed by her seat rather than the sound bar under the TV. Patient wanted to practice phone and ashley, but forgot her cell phone. Patient just under went breast lumpectomy which is showing cancer. Has appointment tomorrow for full report and to discuss treatment. She will schedule an appointment when she knows her schedule. Diagnosis Code(s):Primary Diagnosis: H90.3 Bilateral Sensorineural Hearing Loss Signature:Provider: Juan David White, CCC-A
== END 2022-02-19 13:45 | disposition home or self-care (01) ==
LOC: HO.HAP 13:44
PROVIDERS: Visit Provider Internal Medicine
DX: Z13.89 Encounter for screening for other disorder (principal)

== ENCOUNTER → 2022-03-05 15:16 | Outpatient (BNV) | payer MEDICARE, SELFPAY | PROVIDERS: PCP Internal Medicine; Referring Provider Surgery; Visit Provider Internal Medicine | DX: C50.911 Malignant neoplasm of unspecified site of right female breast (principal) | CPT/HCPCS: 99205; 99214; 99215; G2211 ==

== ENCOUNTER 2022-03-13 15:02 | Outpatient (REF) | payer SELFPAY ==
--- NOTE | 2022-03-13 17:15 | MHC.AU.HFU ---
Hearing Instrument Follow-Up- Binaural Date of Visit: 03/13/22 Right Ear: Major Account Manager: [employer]Sound Model: Linx Quatro 7 [id number] Serial Number: [id number] Repair Warranty: 03/05/2025, Remake 03/05/2023 Dispensed By: [facility] Date of Fittin02/07/2022 Left Ear: Major Account Manager: [employer] Model: Linx Quatro 7 [id number] Serial Number: [id number] Repair Warranty: 03/05/2025, Remake 03/05/2023 Dispensed By: [facility] Date of Fittin02/07/2022 Follow-Up Summary: Patient reports that the overall tone of the hearing aids has not been ideal. She finds that impulse noises, such as dishes clanking or sneezes, are uncomfortably loud. She has been having trouble with clarity, especially in noise and on TV. Patient would like to keep her current settings as program 1, and add an additional program with the changes so she can compare. Program 2 was added. In Program 2, Impulse noise was increased to maximum, low frequency gain was lowered by 2 steps and high frequency gain raised by 2 steps (at [facility] audiology's suggestion). Patient reported the tone and sound quality of the hearing aids seemed better. She would like to try Phonak hearing aids as well during her trial period, since she has so far found that she liked the overall sound of the Phonak instruments more. New impressions were taken and will be sent to [employer] for a pair of Virto [id number]. Recommendations: Patient will be contacted when materials have arrived. Diagnosis Code(s): Primary Diagnosis: H90.3 Bilateral Sensorineural Hearing Loss Signature: Provider: Aaron Barton, CCC-A
== END 2022-03-13 15:03 | disposition home or self-care (01) ==
LOC: HO.HAP 15:02
PROVIDERS: Visit Provider Internal Medicine
DX: Z13.89 Encounter for screening for other disorder (principal)

== ENCOUNTER 2022-04-30 08:34 | Outpatient (REF) | payer SELFPAY ==
--- NOTE | 2022-05-16 10:36 | MHC.AU.HFU ---
Hearing Instrument Follow-Up- Binaural Date of Visit: 04/30/22 Follow-Up Summary: Patient reports that the hearing aids are still not sounding good. She finds the overall tone of them is very different than her previous Phonak ones. She described the tone as hard and heavy. She feels that if someone makes a clanking sound, such as putting a dish down, it is very jarring. She feels she hears background noise just as much as people's voices. She has also noticed that wind noise is strong. Overall gain was lowered by 2 steps. Impulse noise and background noise controls were set to the maximum. Discussed other hearing aids. If she were to stay with ITCs that have regular batteries and Bluetooth, her primary option would be the new [employer]. [employer] was unable to make ITCs that fit her needs due to her ear canal size. She does not want to go back to [employer], as she did not like them in the past. Discussed that ultimately, she may be a better candidate for BTEs/RICs due to her power needs and her ear canal size. She was in agreement and would like to try a pair of Phonak [place] [id number]. We will order them based on the impressions [employer] has on file. The [employer] rep agreed to extend the trial period. Recommendations: Recommendations: Patient will be contacted when materials have arrived. Diagnosis Code(s): Primary Diagnosis: H90.3 Bilateral Sensorineural Hearing Loss Signature: Provider: Aaron Barton, NORMA-A
== END 2022-04-30 08:35 | disposition home or self-care (01) ==
LOC: HO.HAP 08:34
PROVIDERS: Visit Provider Internal Medicine
DX: Z13.89 Encounter for screening for other disorder (principal)

== ENCOUNTER 2022-06-17 15:15 | Outpatient (REF) | payer MEDICARE, SELFPAY | END 2022-06-17 15:16 | disposition home or self-care (01) | LOC: HO.SH 15:15 | PROVIDERS: Visit Provider Internal Medicine | DX: Z01.118 Encounter for examination of ears and hearing with other abnormal findings (principal); H90.3 Sensorineural hearing loss, bilateral | CPT/HCPCS: 92552; 92556 ==

== ENCOUNTER 2022-06-18 08:43 | Outpatient (REF) | payer SELFPAY ==
--- NOTE | 2022-06-18 09:54 | MHC.AU.HFA ---
Hearing Instrument Fitting- Adult- Binaural Date of Visit: 06/18/22 Hearing Instruments Dispensed: Right Ear: Phonak Audeo P70-312, #[id number] Repair Warranty: 09/09/2025 Loss and Damage Warranty: 09/09/2025 Service Plan: 06/18/2025 Battery Size: 312 Applied Biology Professor: #2 UP Type of Mold: cShell #[id number], Warranty 09/11/2022 Type of Wax Guard: CeruStop Left Ear: Phonak Audeo P70-312, #[id number] Repair Warranty: 09/09/2025 Loss and Damage Warranty: 09/09/2025 Service Plan: 06/18/2025 Battery Size: 312 Applied Biology Professor: #2 UP Type of Mold: cShell #[id number] Warranty 09/11/2022 Type of Wax Guard: CeruStop Summary of Fitting: Feedback senior hr manager was run. Verifit was performed and levels adjusted to better reach targets. Initially, just the right side was turned on, and patient reported it already seemed better than the ReSound ITCs she has been using. When the left side was turned on, she felt the sound quality diminish due to interference from the poorer word discrimination in the left ear. The left side was lowered by 3 steps, which improved the perceived sound quality and helped with the interference. Hearing aids were paired to the patient's phone and to the ashley. Patient would prefer a 13 battery. It will be ordered and swapped out for the 312 ones at the follow-up. Recommendations: A hearing instrument follow-up was scheduled. Diagnosis Code(s): Primary Diagnosis: H90.3 Bilateral Sensorineural Hearing Loss Signature: Provider: Jose Barton, [facility]
== END 2022-06-18 08:44 | disposition home or self-care (01) ==
LOC: HO.HAP 08:43
PROVIDERS: Visit Provider Internal Medicine
DX: Z13.89 Encounter for screening for other disorder (principal)

== ENCOUNTER → 2022-06-27 10:43 | Outpatient (BNVA) | payer MEDICARE, SELFPAY | PROVIDERS: PCP Internal Medicine; Visit Provider Surgery | DX: C50.911 Malignant neoplasm of unspecified site of right female breast (principal); Z98.890 Other specified postprocedural states | CPT/HCPCS: 99212 ==

== ENCOUNTER 2022-07-02 11:10 | Outpatient (REF) | payer SELFPAY | END 2022-07-02 11:11 | disposition home or self-care (01) | LOC: HO.HAP 11:10 | PROVIDERS: Visit Provider Internal Medicine | DX: Z13.89 Encounter for screening for other disorder (principal) ==

== ENCOUNTER 2022-07-04 14:48 | Outpatient (REF) | payer SELFPAY | END 2022-07-04 14:49 | disposition home or self-care (01) | LOC: HO.HAP 14:48 | PROVIDERS: Visit Provider Internal Medicine | DX: Z13.89 Encounter for screening for other disorder (principal) ==

== ENCOUNTER 2022-07-25 14:36 | Outpatient (REF) | payer SELFPAY | END 2022-07-25 14:37 | disposition home or self-care (01) | LOC: HO.HAP 14:36 | PROVIDERS: Visit Provider Internal Medicine | DX: Z13.89 Encounter for screening for other disorder (principal) ==

== ENCOUNTER 2022-08-06 11:24 | Outpatient (REF) | payer MEDICARE, SELFPAY ==
[2022-08-06 13:58] LABS: MANUAL DIFF FLAG NO
[2022-08-06 14:03] LABS: Basophils Absolute Auto 0.1 X10*3/uL (0.0-0.2); Basophils Percent Auto 1.1 % (0-2); Eosinophils Absolute Auto 0.1 X10*3/uL (0.0-0.4); Hematocrit 43.6 % (37.0-47.0); Hemoglobin 14.5 g/dl (12.0-16.0); Imm Gran Abs Auto 0.01 X10*3/uL (0.00-0.03); Imm Gran Pct Auto 0.2 % (0.0-0.4); Lymphocytes Absolute Auto 1.7 X10*3/uL (1.2-4.9); Lymphocytes Percent Auto 36.6 % (20-40); Mean Corpuscular HGB Conc 33.3 g/dl (31.0-35.0); Mean Corpuscular Hemoglobin 30.8 pg (27.0-33.0); Mean Corpuscular Volume 92.6 fL (80.0-98.0); Mean Platelet Volume 12.5 fL (9.4-12.3); Monocytes Absolute Auto 0.4 X10*3/uL (0.1-1.2); Monocytes Percent Auto 9.4 % (2-11); Neutrophils Absolute Auto 2.3 x10*3/uL (2.0-8.3); Neutrophils Percent Auto 50.7 % (45-73); Platelet Count 174 X10*3/uL (160-400); Red Blood Count 4.71 X10*6/uL (4.20-5.50); Red Cell Distribution Width 13.3 % (11.0-16.0); White Blood Count 4.6 X10*3/uL (4.8-10.8)
[2022-08-06 15:08] LABS: Cholesterol 229 mg/dL; HDL Cholesterol 89 mg/dL; LDL Cholesterol Calculated 121 mg/dl; Triglycerides 99 mg/dL
[2022-08-06 15:28] LABS: Thyroid Stimulating Hormone 1.25 uIU/mL (0.32-4.0); Vitamin D 25-OH Total 25.7 ng/mL (>30)
[2022-08-06 17:24] LABS: Alanine Aminotransferase 13 U/L (0-31); Albumin Level 4.1 g/dL (3.5-5.0); Alkaline Phosphatase 100 U/L (39-117); Anion Gap 14 (12-20); Aspartate Amino Transferase 16 U/L (5-31); Bilirubin Total 0.7 mg/dL (0.0-1.0); Blood Urea Nitrogen 13 mg/dL (9-16); Calcium 9.5 mg/dL (8.4-10.2); Carbon Dioxide 27 mmol/L (22-29); Chloride 106 mmol/L (96-108); Estimated Glomerular Filt Rate 58; Glucose Random 96 mg/dL (60-115); Potassium 4.1 mmol/L (3.3-5.1); Sodium 143 mmol/L (135-145); Total Protein 6.4 g/dL (6.5-8.0); Vitamin D 25-OH Total 27.8 ng/mL (>30)
== END 2022-08-06 11:25 | disposition home or self-care (01) ==
LOC: HO.HMGCLDS 11:24
PROVIDERS: Absent Provider Internal Medicine; PCP Internal Medicine; Visit Provider Internal Medicine
DX: I10 Essential (primary) hypertension (principal); C50.411 Malignant neoplasm of upper-outer quadrant of right female breast; Z17.0 Estrogen receptor positive status [ER+]; E55.9 Vitamin D deficiency, unspecified
CPT/HCPCS: 36415; 80053; 80061; 82306; 84443; 85025

== ENCOUNTER 2022-09-02 10:30 | Outpatient (REF) | payer MEDICARE, SELFPAY ==
--- NOTE | 2022-09-02 12:48 | MHC.AU.HA3 ---
Hearing Instrument Follow-Up- Binaural Date of Visit: 09/02/22 Right Ear: Shlomo, Model, Color, Serial Number: Sherman Olsen [id number] SN: [id number] [place]: Yudye Education Sales Consultant Repair Warranty: 09/17/2025 Education Sales Consultant Loss and Damage Warranty: 09/09/2025 [facility] Service Plan: 07/02/2025 Battery Size: 13 Sales Ledger Clerk/Slim Tube: 4.0 2R Earmold/Dome/CShell/SlimTip:cShell #[id number], Warranty 09/11/2022 Type of Wax Guard: CeruStop Dispensed By: [facility] Date of Fittin07/02/2022 Left Ear: Shlomo, Model, Color, Serial Number: Sherman Olsen [id number] SN: [id number] Color: Yudye Education Sales Consultant Repair Warranty: 09/17/2025 Education Sales Consultant Loss and Damage Warranty: 09/09/2025 [facility] Service Plan: 07/02/2025 Battery Size: 13 Sales Ledger Clerk/Slim Tube: 4.0 2L Earmold/Dome/CShell/SlimTip: cShell #[id number] Warranty 09/11/2022 Type of Wax Guard: CeruStop Dispensed By: [facility] Date of Fittin07/02/2022 Follow-Up Summary: Aminta reported her left earmold is causing discomfort at the entrance to her canal and it feels too full in her ear. She also has more difficulty inserting it. Buffed significantly with noted improvement in comfort in office. Impression taken of left ear without incident. Sent to [facility] for another in-warranty remake. Aminta also reported that she is not hearing as well with these hearing aids compared to the non-tcoil model. Speech reportedly sounds garbled and not clear with particular difficulty in background noise. Reprogrammed current hearing aids closer to settings from 06/18/2022 and adjusted noise management settings. Discussed possible interference of left ear; however, Aminta reported that she prefers to have a left hearing aid for environmental awareness. Will follow up regarding programming changes at next appointment when scheduled to fit new earmold. Recommendations: Patient will be contacted when materials have arrived. Diagnosis Code(s): Primary Diagnosis: H90.3 Bilateral Sensorineural Hearing Loss Signature: Provider: Jose Tavarez, [facility]
== END 2022-09-02 10:31 | disposition home or self-care (01) ==
LOC: HO.HAP 10:30
PROVIDERS: Visit Provider Internal Medicine
DX: Z13.89 Encounter for screening for other disorder (principal)

== ENCOUNTER 2022-09-16 11:02 | Outpatient (REF) | payer SELFPAY ==
--- NOTE | 2022-09-16 12:53 | MHC.AU.HA3 ---
Hearing Instrument Follow-Up- Binaural Date of Visit: 09/16/22 Right Ear: Make, Model, Color, Serial Number: Sherman Isbello [id number] SN: [id number] [place]: Joaquínagne Contract Sheltered Workshop Supervisor Repair Warranty: 09/17/2025 Contract Sheltered Workshop Supervisor Loss and Damage Warranty: 09/09/2025 [facility] Service Plan: 07/02/2025 Battery Size: 13 Cpr Instructor/Slim Tube: 4.0 2R Earmold/Dome/CShell/SlimTip:cShell #[id number], Warranty 09/11/2022 Type of Wax Guard: CeruStop Dispensed By: [facility] Date of Fittin07/02/2022 Left Ear: Make, Model, Color, Serial Number: Sherman Falleo P70-13T SN: [id number] Color: [place] Contract Sheltered Workshop Supervisor Repair Warranty: 09/17/2025 Contract Sheltered Workshop Supervisor Loss and Damage Warranty: 09/09/2025 [facility] Service Plan: 07/02/2025 Battery Size: 13 Cpr Instructor/Slim Tube: 4.0 2L Earmold/Dome/CShell/SlimTip: cShell #[id number] Warranty 09/11/2022 Type of Wax Guard: CeruStop Dispensed By: [facility] Date of Fittin07/02/2022 Follow-Up Summary: Fit remade left cshell. Significant improvement in comfort and no feedback noted in office. Aminta is happy with the fit of the new earmold. She has the old left chsell to keep as back up. Also ran feedback manager personnel selection and increased the overall volume of her old right Audeo V90-13 hearing aid at her request to have as back up as well. Recommendations: Hearing instrument maintenance in 6 months, or sooner if needed. Please contact our clinic with any questions or concerns. Diagnosis Code(s): Primary Diagnosis: H90.3 Bilateral Sensorineural Hearing Loss Signature: Provider: Jose Tavarez, [facility]
== END 2022-09-16 11:03 | disposition home or self-care (01) ==
LOC: HO.HAP 11:02
PROVIDERS: Visit Provider Internal Medicine
DX: Z13.89 Encounter for screening for other disorder (principal)

== ENCOUNTER 2022-11-10 10:41 | Outpatient (REF) | payer SELFPAY ==
--- NOTE | 2022-11-10 15:03 | MHC.AU.HA3 ---
Hearing Instrument Follow-Up- Binaural Date of Visit: 11/10/22 Right Ear: Make, Model, Color, Serial Number: Sherman Olsen [id number] SN: [id number] [place]: Yudye Coffee Shop Manager Repair Warranty: 09/17/2025 Coffee Shop Manager Loss and Damage Warranty: 09/09/2025 [facility] Service Plan: 07/02/2025 Battery Size: 13 Construction Project Administrator/Slim Tube: 4.0 2R Earmold/Dome/CShell/SlimTip:cShell #[id number], Warranty 09/11/2022 Type of Wax Guard: CeruStop Dispensed By: [facility] Date of Fittin07/02/2022 Left Ear: Make, Model, Color, Serial Number: Sherman Olsen [id number] SN: [id number] Color: Joaquínagne Coffee Shop Manager Repair Warranty: 09/17/2025 Coffee Shop Manager Loss and Damage Warranty: 09/09/2025 [facility] Service Plan: 07/02/2025 Battery Size: 13 Construction Project Administrator/Slim Tube: 4.0 2L Earmold/Dome/CShell/SlimTip: cShell #[id number] Warranty 09/11/2022 Type of Wax Guard: CeruStop Dispensed By: [facility] Date of Fittin07/02/2022 Follow-Up Summary: -Aminta reported that the hearing aids continuously disconnect from the Snapverse ashley and the adjustment she can make through the ashley are not beneficial. Discussed option to forgo ashley use due to frustration in intermittent connection as well as lack of perceived benefit in any adjustments she can make through the ashley. Aminta was in agreement and uninstalled the ashley. She was unaware that the hearing aids could still be connected to her cell phone for phone calls without the ashley. -Aminta also reported that she does not like the linked volume controls. Advised only way to adjust volumes independently is through ashley; however, Aminta does not want the hassle of the ashley anymore. Discussed option to program hearing aids as separate devices which would allow independent VC use but lose all other binaural functions as well. Aminta reported that since she only uses left hearing aid for environmental awareness and no speech understanding, she would prefer separate volume controls. Reprogrammed hearing aids as separate devices in two different programming sessions. -Although overall comfort of left c-shell has improved since the remake, Aminta reported that it still causes some irritation from canal lock portion. Buffed significantly with noted improvement in office. -Aminta continues to report lack of speech clarity especially in adverse listening environments. Discussed interference from left ear as demonstrated during last evaluation. Aminta is not interested in a CROS device. However, discussed situational use of left hearing aid to avoid interference of right ear speech clarity. -Aminta inquired about a TV adapter. Need to get pricing and call with quote. Recommendations: Please contact our clinic with any questions or concerns. Diagnosis Code(s): Primary Diagnosis: H90.3 Bilateral Sensorineural Hearing Loss Signature: Provider: Jose Tavarez, [facility]
== END 2022-11-10 10:42 | disposition home or self-care (01) ==
LOC: HO.HAP 10:41
PROVIDERS: Visit Provider Internal Medicine
DX: Z13.89 Encounter for screening for other disorder (principal)

== ENCOUNTER → 2022-12-18 10:02 | Outpatient (BNVA) | payer MEDICARE, SELFPAY | PROVIDERS: PCP Internal Medicine; Visit Provider Surgery | DX: C50.911 Malignant neoplasm of unspecified site of right female breast (principal) | CPT/HCPCS: 99212 ==

== ENCOUNTER 2022-12-26 08:37 | Outpatient (REF) | payer MEDICARE, SELFPAY ==
--- NOTE | ~2022-12-26 | MM_ITS ---
EXAMINATION: MM DIAGNOSTIC DIGITAL BREAST TOMOSYNTHESIS, BILATERAL CLINICAL INFORMATION: Right breast cancer status post lumpectomy 02/10/2022. COMPARISON: Mammography: 02/10/2022 and studies dating back to 12/18/2015 TECHNIQUE: Digital breast tomosynthesis is performed in both the craniocaudal and mediolateral oblique views along with computer-aided detection (CAD). Synthesized 2D images are generated from the tomosynthesis. Additional spot magnification films of the right breast in 90 degree mediolateral and craniocaudal projections performed. FINDINGS: There are scattered areas of fibroglandular density (ACR BI-RADS breast composition Category b). Postsurgical architectural distortion is seen within the upper outer aspect of the right breast. Three calcifications about the surgical bed are noted and appear to be vascular in nature. No new abnormal dominant mass is identified. No suspicious grouping of microcalcifications is seen. This is stable parenchymal pattern of the left breast. Results are provided to the patient at time of visit by the technologist. MM/MM tomosynthesis diagnostic BI IMPRESSION: Postsurgical change right breast. Stable appearance of the left breast. ASSESSMENT: BI-RADS 2: Benign RECOMMENDATION: Diagnostic mammography at time of next annual exam, due in 12 months. This patient's information was entered into a reminder system with a target due date for their next mammogram.
== END 2022-12-26 08:38 | disposition home or self-care (01) ==
LOC: HO.MAMMO 08:37
PROVIDERS: PCP Internal Medicine; Visit Provider Surgery
DX: R92.1 Mammographic calcification found on diagnostic imaging of breast (principal); C50.911 Malignant neoplasm of unspecified site of right female breast
CPT/HCPCS: 77062; 77066

== ENCOUNTER 2023-03-19 11:06 | Outpatient (REF) | payer SELFPAY | END 2023-03-19 11:07 | disposition home or self-care (01) | LOC: HO.HAP 11:06 | PROVIDERS: Visit Provider Internal Medicine | DX: Z13.89 Encounter for screening for other disorder (principal) ==

== ENCOUNTER 2023-04-10 10:19 | Outpatient (REF) | payer SELFPAY | END 2023-04-10 10:20 | disposition home or self-care (01) | LOC: HO.HAP 10:19 | PROVIDERS: Visit Provider Internal Medicine | DX: Z13.89 Encounter for screening for other disorder (principal) ==

== ENCOUNTER 2023-04-17 13:34 | Outpatient (REF) | payer SELFPAY | END 2023-04-17 13:35 | disposition home or self-care (01) | LOC: HO.HAP 13:34 | PROVIDERS: Visit Provider Internal Medicine | DX: Z13.89 Encounter for screening for other disorder (principal) ==

== ENCOUNTER 2023-05-11 10:44 | Outpatient (REF) | payer MEDICARE, SELFPAY ==
[2023-05-11 13:20] LABS: MANUAL DIFF FLAG NO
[2023-05-11 13:57] LABS: Basophils Absolute Auto 0.1 X10*3/uL (0.0-0.2); Eosinophils Absolute Auto 0.1 X10*3/uL (0.0-0.4); Eosinophils Percent Auto 1.7 % (0-4); Hematocrit 44.4 % (37.0-47.0); Hemoglobin 14.4 g/dl (12.0-16.0); Imm Gran Abs Auto 0.01 X10*3/uL (0.00-0.03); Imm Gran Pct Auto 0.2 % (0.0-0.4); Lymphocytes Absolute Auto 1.6 X10*3/uL (1.2-4.9); Lymphocytes Percent Auto 33.1 % (20-40); Mean Corpuscular HGB Conc 32.4 g/dl (31.0-35.0); Mean Corpuscular Hemoglobin 30.6 pg (27.0-33.0); Mean Corpuscular Volume 94.5 fL (80.0-98.0); Mean Platelet Volume 12.7 fL (9.4-12.3); Monocytes Absolute Auto 0.4 X10*3/uL (0.1-1.2); Monocytes Percent Auto 7.7 % (2-11); Neutrophils Absolute Auto 2.7 x10*3/uL (2.0-8.3); Neutrophils Percent Auto 56.3 % (45-73); Platelet Count 167 X10*3/uL (160-400); Red Cell Distribution Width 13.6 % (11.0-16.0); White Blood Count 4.8 X10*3/uL (4.8-10.8)
[2023-05-11 14:51] LABS: Alanine Aminotransferase 9 U/L (0-31); Alkaline Phosphatase 93 U/L (39-117); Anion Gap 11 (12-20); Aspartate Amino Transferase 14 U/L (5-31); Bilirubin Total 0.8 mg/dL (0.0-1.0); Blood Urea Nitrogen 10 mg/dL (9-16); Calcium 9.7 mg/dL (8.4-10.2); Carbon Dioxide 28 mmol/L (22-29); Chloride 107 mmol/L (96-108); Cholesterol 196 mg/dL (<200); Estimated Glomerular Filt Rate > 60; Glucose Random 92 mg/dL (60-115); HDL Cholesterol 80 mg/dL (>40); LDL Cholesterol Calculated 95 mg/dL (<100); Potassium 4.3 mmol/L (3.3-5.1); Sodium 142 mmol/L (135-145); Total Protein 6.8 g/dL (6.5-8.0); Triglycerides 106 mg/dL (<150)
[2023-05-11 14:53] LABS: Thyroid Stimulating Hormone 1.39 uIU/mL (0.32-4.0)
== END 2023-05-11 10:45 | disposition home or self-care (01) ==
LOC: HO.HMGCLDS 10:44
PROVIDERS: PCP Internal Medicine; Visit Provider Internal Medicine
DX: E78.00 Pure hypercholesterolemia, unspecified (principal); I10 Essential (primary) hypertension
CPT/HCPCS: 36415; 80053; 80061; 84443; 85025

== ENCOUNTER 2023-05-19 13:40 | Outpatient (REF) | payer SELFPAY ==
--- NOTE | 2023-05-20 13:55 | MHC.AU.HA3 ---
Hearing Instrument Follow-Up- Binaural Date of Visit: 05/19/23 Right Ear: Make, Model, Color, Serial Number: Sherman Isbello [id number] SN: [id number] Color: Jazzmine Carriage Setter Repair Warranty: 09/17/2025 Carriage Setter Loss and Damage Warranty: 09/09/2025 [facility] Service Plan: 07/02/2025 Battery Size: 13 Trace Clerk/Slim Tube: 2 UP Earmold/Dome/CShell/SlimTip:cShell #[id number], Warranty 09/11/2022 Type of Wax Guard: CeruStop Dispensed By: [facility] Date of Fittin07/02/2022 Left Ear: Shlomo, Model, Color, Serial Number: Sherman Isbello [id number] SN: [id number] Color: Jazzmine Carriage Setter Repair Warranty: 09/17/2025 Carriage Setter Loss and Damage Warranty: 09/09/2025 [facility] Service Plan: 07/02/2025 Battery Size: 13 Trace Clerk/Slim Tube: 2 UP Earmold/Dome/CShell/SlimTip: cShell #[id number] Warranty 09/11/2022 Type of Wax Guard: CeruStop Dispensed By: [facility] Date of Fittin07/02/2022 Follow-Up Summary: Aminta reported that her hearing aids are too loud, background noise is outrageous, and high-pitched voices are uncomfortable. Even the loudness of her own voice is almost unbearable. However, she is also reportedly always asking for repetition and lacks clarity. The bluetooth connection to her cell phone also supposedly changed when she deleted the Phonak ashley. Listening on the phone via bluetooth was great but now it is not as clear. She has subsequently been using her older BiCROS system because she prefers the mellowness of sound quality. Discussed difference of BiCROS system vs two hearing aids given poor speech discrimination. Aminta is adamant that left ear is not interfering as she reportedly does not notice a significant difference with or without the left hearing aid. Ran real ear measures with old right hearing aid. Reran real ear with new right hearing aid and adjusted settings to match frequency response of old hearing aid. Significantly underfit based on prescriptive targets; however, Aminta cannot tolerate an increase in volume level. Tried to decrease overall volume of left hearing aid to minimize interference; however, Aminta preferred the overall volume of both hearing aids with the left set at a louder level. Also increased the noise management settings. Aminta inquired about a slim tip mold vs c-shell. Unsure if the mold itself would resolve Aminta's current complaints. Scheduled follow up to check in regarding programming changes and take ear mold impression, if necessary to try slim tip at Aminta's request. Recommendations: An additional follow-up was scheduled to monitor progress. Diagnosis Code(s): Primary Diagnosis: H90.3 Bilateral Sensorineural Hearing Loss Signature: Provider: Jose Tavarez, [facility]
== END 2023-05-19 13:41 | disposition home or self-care (01) ==
LOC: HO.HAP 13:40
PROVIDERS: Visit Provider Internal Medicine
DX: Z13.89 Encounter for screening for other disorder (principal)

== ENCOUNTER 2023-05-26 11:59 | Emergency (ER) | payer MEDICARE, SELFPAY ==
--- NOTE | ~2023-05-26 | XR_ITS ---
EXAMINATION: XR HIP, LEFT CLINICAL INFORMATION: Left hip and pelvis pain COMPARISON: None available. TECHNIQUE: Two views of the left hip and one view of the pelvis. FINDINGS: Bone alignment is normal. No fracture or dislocation. Joint spaces are normal. Soft tissues are normal. XR/XR hip LT w PEL1V IMPRESSION: Normal left hip.
--- NOTE | ~2023-05-26 | CT_ITS ---
STUDY: Unenhanced CT of the brain and cervical spine INDICATION: Fall, neck pain and head trauma COMPARISON: None TECHNIQUE: Continuous helical imaging obtained through the head and cervical spine without IV contrast. Reconstructed images performed in the coronal and sagittal planes. This CT examination was performed using dose optimization techniques as appropriate, variously including the following: *Automated exposure control *Adjustment of mA and/or kV according to patient size (this includes techniques or standardized protocols for targeted exams where dose is matched to indication/reason for exam; i.e. extremities or head) *Use of iterative reconstruction technique TOTAL EXAM DLP: 636.07 mGy-cm FINDINGS: Head: Age-related atrophy. Vascular calcifications. No intracranial hemorrhage, or extra-axial fluid collections or cranial fractures. Small left occipital soft tissue swelling/hematoma. No evolving infarct, mass lesion, mass effect or midline shift. Lens extractions have been performed. Polypoid density right maxillary antrum possible polyp versus retention cyst. Remaining sinuses and mastoids are clear. Cervical spine: Alignment and vertebral body heights are maintained. C6-C7 fusion. Odontoid is intact, posterior elements are aligned and no prevertebral soft tissue swelling, fracture or traumatic subluxation. Facet hypertrophic changes with severe right C3-C4, moderate right C5-C6 and other mild bilateral neuroforaminal narrowings. No spinal canal narrowing. Visualized nasopharynx, oropharynx, hypopharyngeal and laryngeal structures within normal limits. Unremarkable parotid and submandibular glands. No pathologic lymphadenopathy. Bases are preserved. Vascular calcifications. Unremarkable thyroid. Lung apices are clear. CT/CT cervical spine wo IV con IMPRESSION: Small left occipital soft tissue swelling/hematoma. No acute intracranial or cervical posttraumatic pathology. Atrophy. Right maxillary antral retention cyst versus polyp. Multilevel neuroforaminal narrowings on degenerative basis, most severe right C3-C4 level.
[2023-05-26 12:07] VITALS: BP 179/85; PULSE 73; RESP 18; TEMP 36.2; O2SAT 95; BMI 28.7
--- NOTE | 2023-05-26 12:08 | ED_ITS ---
HPI - General Adult General Chief complaint: Fall Stated complaint: Fall/Head inj Time Seen by Provider: 05/26/23 12:15 Source: patient and family Mode of arrival: ambulatory Limitations: no limitations History of Present Illness HPI narrative: 78 year old female with PMHx of HTN, HDL, migraines, Meniere disease, breast cancer in remission, GERD, presents to the ED today with left hip and left head pain s/p witnessed mechanical fall 2 hours prior to arrival. Denies LOC. Not on AC. Admits to stepping off of a ladder when she fell sideways at the last step, causing her to fall, landing on her left hip and hitting the back of her head on the ground. Denies LOC. Not on AC. Denies dizziness prior to falling. Was able to stand up and ambulate after falling. At present reports discomfort/ bump to the back of her head and soreness to her left buttock. Denies pain and does not wish to take pain medication. Denies difficulty walking. Denies dizziness, vision changes, facial pain, rib pain, chest pain, SOB, N/V, neck or back pain, LE pain, tingling/weakness/numbness in extremities, bowel or bladder incontinence or retention, saddle paresthesias. Related Data Home Medications Medication Instructions Recorded Confirmed atenolol 25 mg tablet (Tenormin) 25 mg PO DAILY 01/28/22 01/07/23 atorvastatin 20 mg tablet 20 mg PO DAILY 01/28/22 01/07/23 qczpfhhpsd-rqufxymnwvjeo-wlrywfvd 1 tab PO Q4H 01/28/22 01/07/23 50 mg-325 mg-40 mg tablet lorazepam 0.5 mg tablet 0.5 mg PO BID PRN Anxiety 01/28/22 01/07/23 meclizine 25 mg tablet 25 mg PO TID 01/28/22 01/07/23 vit C 250 mg-vit E 90 mg-zinc 40 1 tab PO BID 01/07/23 01/07/23 mg-copper 1 ie-swjeua-lxhcry capsule (PreserVision AREDS-2) Previous Rx's Medication Instructions Recorded letrozole 2.5 mg tablet 2.5 mg PO DAILY #30 tabs 05/08/23 Allergies Allergy/AdvReac Type Severity Reaction Status Date / Time clindamycin [CLINDAMYCIN] Allergy Severe SEVERE RASH Verified 05/26/23 12:06 cefaclor [From CECLOR] Allergy Intermediate RASH Verified 05/26/23 12:06 hydrochlorothiazide Allergy Intermediate MUSCLE Verified 05/26/23 12:06 [HYDROCHLOROTHIAZIDE] CRAMPING Review of Systems Review of Systems: Constitutional: No fever, chills, fatigue, night sweats, weight changes ENT/Mouth: No ear pain, hearing loss, nasal congestion, sinus pain, rhinorrhea, sore throat Eyes: No eye pain, swelling, redness, vision changes, discharge Cardio: No chest pain, palpitations, DANIELSON, orthopnea, peripheral edema Pulm: No SOB, cough, sputum, wheezing, dyspnea, hemoptysis GI: No nausea, vomiting, hematemesis, abdominal pain, diarrhea, constipation, hematochezia, melena : No irregular bleeding, dysuria, frequency, urgency, hesitancy, hematuria, flank pain, urinary flow changes, urinary incontinence or retention MSK: No back pain, neck pain, joint pain, + left hip pain Skin: No lesions, rashes Neuro: No weakness, numbness, paresthesias, LOC, dizziness, + headache All other systems reviewed and are negative. [facility] Past Medical History Attestation statement: The following information was validated with the patient. Source: old records reviewed and nursing notes reviewed Medical History Meniere disease Migraines GERD (gastroesophageal reflux disease) HLD (hyperlipidemia) HTN (hypertension) Surgical History H/O removal of cyst (~12/22/85) History of lumpectomy of right breast (02/10/22) Hx of bilateral cataract extraction History of D&C History of removal of ovarian cyst History of appendectomy History of cholecystectomy History of lumpectomy of left breast Family History Family History Father Lung cancer Maternal Aunt Breast cancer Uterine cancer Maternal Grandmother Throat cancer Carcinoma of nose Maternal Uncle Throat cancer Carcinoma of nose Brother Prostate CA Social History Social History Household Members: Spouse Housing: House Alcohol intake: never Patient Tobacco Use Status: Never used Tobacco Smoked in Last 30 Days: No Advance Directives: Yes Advance Directives Information Provided: No Advance Directives on File: No service: No Current occupational status: retired Physical Exam ED Vital Signs: Vital Signs - 24 hr 05/26/23 12:07 05/26/23 12:51 05/26/23 13:40 Temperature 97.1 F Pulse Rate 73 70 65 Respiratory Rate 18 17 15 Blood Pressure 179/85 H 159/79 H 153/83 H Pulse Oximetry 95 99 99 Oxygen Delivery Method Room Air Room Air Room Air BMI result Body Mass Index 28.7 Vital signs stable. Patient initially hypertensive. Normotensive on repeat vitals. Patient tells me she is anxious. Const General: cooperative, healthy appearing, comfortable, no acute distress, alert and awake Orientation/consciousness: patient oriented x3 Limitations: no limitations HENMT Head: Yes normal to inspection and Yes No palpable skull fracture present Ears: hearing grossly normal bilaterally General nose exam: Normal external nose present, Normal septum present and no epistaxis Eyes General: appearance normal, both eyes and all related structures Neck Neck: Yes normal visual inspection and Yes no meningeal signs Chest Chest palpation & inspection: normal inspection of the chest Resp Effort & Inspection: normal respiratory effort Auscultation: clear to auscultation bilaterally Cardio Rate: regular rate Rhythm: regular rhythm Heart sounds: S1 normal heart sound present and S2 normal heart sound present Peripheral pulses: Peripheral pulses 2+ throughout GI Inspection: Yes normal to inspection Palpation (GI): Soft to palpation, nontender, no guarding and hepatosplenomegaly present Back/Spine/Pelvis Other: Cervical, thoracic, lumbar spine with ROM intact. No midline spinous tenderness. No paraspinal muscle tenderness to palpation. No step-off, deformity or crepitus. Pelvis stable. Sacrum normal. + mildly tender to palpation over the posterior left buttock without ecchymoses, hematoma. Skin General skin exam: no rashes or lesions noted Neuro General: patient oriented x3, gait normal, moves all extremities and no meningeal signs Cranial nerves: Yes CN's II-XII intact bilaterally Extrem Other: + left hip with full ROM intact to extension, flexion, internal and external rotation. General: Yes normal to inspection and Yes full ROM Left lower extremity: normal to inspection and hip/thigh Details: normal to inspection and normal ROM; no ecchymosis and no crepitus Course Course Course Narrative: This is an RME: Additional HPI, ROS, PE not included below will be deferred to primary provider. 78 yo f not on thinners presents sp slipping down last step and hitting her L hip and head. No lOC. Poor historian Plan- CT Reevaluation(s) Reevaluation #1: 1330-- CT head/C-spine without acute fracture or bleed. X-ray left hip without fracture or dislocation. > patient's workup is unremarkable. She is still stable. No lab workup or further imaging is warranted at this time. Had a dis cussion with patient and her regarding imaging results. Informed the patient to ice the back of her head as needed and take Tylenol or ibuprofen for pain. Discussed strict return precautions including vision changes, speech changes or nausea/vomiting. I feel comfortable discharging the patient home. Patient agreeable with disposition. All questions answered at this time. Stable for discharge. Medical Decision Making Medical Decision Making MDM Narrative: 78 year old female with PMHx of HTN, HDL, migraines, Meniere disease, breast cancer in remission, GERD, presents to the ED today with left hip and left head pain s/p mechanical fall 2 hours prior to arrival. VSS. Nontoxic appearing, in NAD. PERRLA. Exam nonfocal. Spine exam unremarkable. Pelvis stable. Sacrum normal. Mildly tender to palpation over the posterior left buttock without ecchymoses, hematoma. Concern for hip fracture vs dislocation vs msk sprain/ strain vs contusion. Concern for concussion or soft tissue hematoma. Unlikely ICH, subdural hematoma, or skull fracture. Differential Diagnosis Differential Diagnoses: The differential diagnosis associated with the presentation includes As above. Admission/Observation Not indicated. Lab Data Not indicated. Independent Interpretation I performed an independent interpretation of an: CT Scan Interpretation: CT head/ brain without acute bleed, agree with radiologist's interpretation. CT cervical spine without acute fracture, agree with radiologist's interpretation. Radiology Impression Discussion of test interpretation with radiology: I have reviewed the radiologist's reading. Radiologist Impression: EXAMINATION: XR HIP, LEFT CLINICAL INFORMATION: Left hip and pelvis pain COMPARISON: None available. TECHNIQUE: Two views of the left hip and one view of the pelvis. FINDINGS: Bone alignment is normal. No fracture or dislocation. Joint spaces are normal. Soft tissues are normal. XR/XR hip LT w PEL1V IMPRESSION: Normal left hip. Dictated By: Ly Davalos MD Signed By: <Electronically signed by Ly Davalos MD in OV> Independent Historian Clinical information obtained from an independent historian. History obtained from or confirmed by: Spouse External Record Review External record reviewed: Inpatient record Prescription Management I considered prescription management with: Pain Medication Chronic Conditions Patient?s care impacted by: Hypertension Critical Care Time Critical Care Time Critical Care Time: No Discharge Plan Discharge Clinical Impression: Musculoskeletal pain, Fall Patient Disposition: Home, Self-Care Instructions: Musculoskeletal Pain (ED), Fall Prevention (ED) Additional Instructions: The CT of your head did not show acute bleed. The CT of your neck did not show acute fracture. The xrays of your left hip did not show fracture or dislocation. Your work up today is reassuring. Ice the hematoma on the back of your head to help with swelling and discomfort. Please take Tylenol and ibuprofen as needed for muscle and head pain. Return to the emergency department for new or worsening symptoms such as vision changes, speech changes, nausea or vomiting, or memory loss. In the case of emergency call 911. Prescriptions: No Action PreserVision AREDS-2 250-90-40-1 mg Capsule 1 tab PO BID letrozole 2.5 mg Tablet 2.5 mg PO DAILY Qty: 30 2RF atorvastatin 20 mg tablet 20 mg PO DAILY lorazepam 0.5 mg tablet 0.5 mg PO BID PRN (Reason: Anxiety) atenolol [Tenormin] 25 mg tablet 25 mg PO DAILY nrfzuemuor-iyjbvpaiywqco-xtgq 50-325-40 mg tablet 1 tab PO Q4H meclizine 25 mg tablet 25 mg PO TID Referrals: Isidro Arango MD [Primary Care Provider] - Interventions: ED Discharge Assessment Last Done: 05/26/23 13:59 Discharge Date/Time: 05/26/23 13:59
[2023-05-26 12:51] VITALS: BP 159/79; PULSE 70; RESP 17; O2SAT 99
[2023-05-26 13:40] VITALS: BP 153/83; PULSE 65; RESP 15; O2SAT 99
== END 2023-05-26 13:59 | disposition home or self-care (01) ==
PROVIDERS: Emergency Provider Emergency Medicine; PCP Internal Medicine
DX: M79.18 Myalgia, other site (principal); Z91.81 History of falling; I10 Essential (primary) hypertension; E78.5 Hyperlipidemia, unspecified; Z79.899 Other long term (current) drug therapy
CPT/HCPCS: 70450; 72125; 73502; 99284

== ENCOUNTER 2023-06-10 13:53 | Outpatient (REF) | payer SELFPAY | END 2023-06-10 13:54 | disposition home or self-care (01) | LOC: HO.HAP 13:53 | PROVIDERS: Visit Provider Internal Medicine | DX: Z46.1 Encounter for fitting and adjustment of hearing aid (principal); H90.3 Sensorineural hearing loss, bilateral | CPT/HCPCS: V5267 ==

== ENCOUNTER 2023-06-18 10:23 | Outpatient (AMB) | payer MEDICARE, SELFPAY ==
--- NOTE | 2023-06-18 10:35 | MHC.OFFVIS ---
Intake Vital Signs 06/18/23 10:47 Height 5 ft 8 in Weight 184 lb 8 oz BMI 28.1 BP 164/77 H Blood Pressure Location Lt brachial Position Sitting Pulse 65 Intake Visit Reasons: 6 mth breast exam Intake Note: Patient is seen in office for 6 month follow up visit, breast exam. Patient c/o: admits to pain right side under arm for the first 2 months, while taking Letrozole has notice anxiety, not sleeping well, tired, would also like to be educated on what is she looking for when self examining her breast and should she be concerns of spreading to other parts of the body Area Field Manager Required: No Wheat And Oats Flake Miller: Wheat And Oats Flake Miller Present Accompanied by: Self / Same As Patient Allergies clindamycin [CLINDAMYCIN] Allergy (Severe, Verified 06/18/23 10:36) SEVERE RASH cefaclor [From CECLOR] Allergy (Intermediate, Verified 06/18/23 10:36) RASH hydrochlorothiazide [HYDROCHLOROTHIAZIDE] Allergy (Intermediate, Verified 06/18/23 10:36) MUSCLE CRAMPING HPI HPI Comments History of Present Illness Details 78-year-old female patient returning for a routine breast examination following right breast cancer surgery. 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 She subsequently underwent a right breast lumpectomy with needle localization and right axillary sentinel node biopsy on 02/10/2022. Pathology confirmed invasive carcinoma with lobular features, 9 mm with DCIS. One sentinel node lymph node was negative for tumor. Margins were wide widely negative for both invasive and DCIS. She was evaluated by Dr. Oro on 03/05/[address] Borden. She started letrozole 2.5 mg p.o. daily. After discussion with radiation oncology decision was made to avoid the radiation therapy and treat only with the aromatase inhibitor. She generally feels well but does occasionally have some soreness in the right breast towards the axilla. Most recent mammogram of 12/26/2022 revealed post-surgical changes which are stable. No suspicious findings are identified (BI-RADS 2). She is scheduled for a follow-up mammogram in 1 year (01/05/2024). [facility] Medical History Meniere disease Migraines GERD (gastroesophageal reflux disease) HLD (hyperlipidemia) HTN (hypertension) Surgical History H/O removal of cyst (~12/22/85) History of lumpectomy of right breast (02/10/22) Hx of bilateral cataract extraction History of D&C History of removal of ovarian cyst History of appendectomy History of cholecystectomy History of lumpectomy of left breast Family History Father Lung cancer Maternal Aunt Breast cancer Uterine cancer Maternal Grandmother Throat cancer Carcinoma of nose Maternal Uncle Throat cancer Carcinoma of nose Brother Prostate CA Social History Household Members: Spouse Housing: House Alcohol intake: never Patient Tobacco Use Status: Never used Tobacco service: No Current occupational status: retired Female Reproductive History Menstrual Age of Menarche: 11 Review of Systems Const Denies chills, Denies fever(s), Denies headache(s) and Denies poor appetite ENT Denies dizziness and Denies headache(s) Card Denies chest pain, Denies rapid heart rate, Denies palpitations and Denies slow heart rate Resp Denies chest congestion, Denies cough, Denies pain on inspiration and Denies wheezing GI Denies abdominal pain, Denies bloating, Denies change in stool character, Denies constipation, Denies diarrhea, Denies nausea, Denies vomiting and Denies hematemesis Denies nipple discharge Musc Denies back pain, Denies arthralgias, Denies joint swelling and Denies numbness Skin/Breast Denies breast swelling, Denies breast skin changes, Denies breast pain, Denies breast mass, Denies change in breast shape, Denies change in pigmentation, Denies nipple discharge, Denies erythema and Denies rash Neuro Denies dizziness, Denies headache(s) and Denies numbness Psych Denies anxiety and Denies depression Endo Denies palpitations Obie/Lymph Denies easy bleeding, Denies easy bruising and Denies lymphadenopathy Aller/Immun Denies wheezing Physical Exam Vital Signs: Last Vital Signs Pulse 65 06/18/23 10:47 BP 164/77 H 06/18/23 10:47 BMI result Body Mass Index 28.1 Const General: cooperative, no acute distress and well developed Nutritional Appearance: well nourished Orientation/consciousness: patient oriented x3 Limitations: no limitations HEENT Head: Yes normocephalic and Yes atraumatic Ears: hearing grossly normal bilaterally Neck Neck: Yes no lymphadenopathy Chest Other: Well-healed incision in the right breast and axilla without redness or discharge. No evidence of lymphedema in the right arm. No palpable mass or enlarged lymph nodes. Left breast reveals no skin change, nipple discharge, palpable mass, or enlarged lymph nodes. Resp Effort & Inspection: normal respiratory effort, no audible wheezes, no cough and no respiratory distress Skin Other: Warm, dry, no rash Neuro General: patient oriented x3 Extrem Other: No edema right upper extremity Assessment & Plan Assessment & Plan (1) Invasive ductal carcinoma of right breast: Code(s): C50.911 - Malignant neoplasm of unspecified site of right female breast Plan 78-year-old female patient returning following lumpectomy needle localization right breast, right axillary sentinel node biopsy. AJCC stage-pT1b N0. Prognostic Stage IA, ER/CA positive HER2 negative.? Ki-67 immunostain 15%. She completed her medical and radiation oncology evaluation and is currently taking letrozole. It was decided to hold off on radiation therapy. She generally feels well and occasionally notes some sharp pain in the right upper breast. Examination today revealed no suspicious findings in either breast. The right breast incisions are well healed. I recommended continued self examination on a monthly basis. She should return in 6 months for follow-up breast examination. Mammogram performed on 12/26/2022 revealed no mammographic evidence of malignancy with post surgery changes (BI-RADS 2). Twelve month follow-up mammogram is recommended. She will continue her follow-up with Dr. Oro. Coding Level of Care Code Est Pt Level 3 (83866) Diagnoses Invasive ductal carcinoma of right breast C50.911
[2023-06-18 10:47] VITALS: BP 164/77; PULSE 65; BMI 28.1
== END 2023-06-18 11:05 | disposition home or self-care (01) ==
PROVIDERS: PCP Internal Medicine; Visit Provider Surgery
DX: C50.911 Malignant neoplasm of unspecified site of right female breast (principal)
CPT/HCPCS: 99213

== ENCOUNTER → 2023-06-18 10:23 | Outpatient (BNVA) | payer MEDICARE, SELFPAY | PROVIDERS: PCP Internal Medicine; Visit Provider Surgery | DX: C50.911 Malignant neoplasm of unspecified site of right female breast (principal) | CPT/HCPCS: 99212 ==

== ENCOUNTER 2023-07-01 13:13 | Outpatient (REF) | payer MEDICARE, SELFPAY ==
--- NOTE | ~2023-07-01 | MM_ITS ---
EXAMINATION: BONE DENSITOMETRY CLINICAL INDICATION: Asymptomatic menopausal state. COMPARISON: Previous BD dated 06/21/2021 and baseline BD dated 08/04/2008. TECHNIQUE: Using a VFA DXA System (software version: 13.1) manufactured by [employer], dual-energy x-ray absorptiometry was performed of the lumbar spine and left hip. The images are of good technical quality. Summary results are attached. FINDINGS: LEFT FEMUR, NECK: Current: BMD 0.760 g/cm2, Z-score -0.2, T-score -2.0, osteopenia. Prior: BMD 0.779 g/cm2. Baseline: BMD 0.872 g/cm2. LEFT FEMUR, TOTAL: Current: BMD 0.743 g/cm2, Z-score -0.5, T-score -2.1, osteopenia, 4.1% decrease from previous, 20.0% decrease from baseline (<5% change is not significant). Prior: BMD 0.775 g/cm2. Baseline: BMD 0.929 g/cm2. AP SPINE L1-L4: Current: BMD 0.926 g/cm2, Z-score -0.8, T-score -2.1, osteopenia, 6.2% decrease from previous, 14.8% decrease from baseline (<5% change is not significant). Prior: BMD 0.987 g/cm2. Baseline: BMD 1.087 g/cm2. IDENTIFIED RISK FACTORS: Height loss, low calcium intake, menopause, right oophorectomy. HISTORY OF FRACTURE: None listed. MEDICATIONS: Vitamin D. MM/XR DEXA axial skeleton IMPRESSION: 1. DIAGNOSIS: Osteopenia based on the lowest T-score value of -2.1 in the lumbar spine and total femur applying World Health Organization criteria. 2. 10-YEAR FRACTURE RISK PREDICTION, FRAX: Major osteoporotic fracture (clinical spine, forearm, hip or shoulder) 15.9%. Hip fracture 4.7%. 3. Treatment Recommendations: NOF guidelines recommend consideration for treatment in postmenopausal women and men age 50 and older presenting with the following: -A hip or vertebral (clinical or morphometric) fracture. -T-score less than or equal to -2.5 at the femoral neck or spine after appropriate evaluation to exclude secondary causes. -Low bone mass at the hip or spine and a 10-year fracture probability by FRAX of greater than or equal to 3% for hip fracture or greater than or equal to 20% for major osteoporotic fracture based on the [place] adapted WHO algorithm. 4. Other Recommendations: All treatment decisions require clinical judgment and consideration of individual patient factors, including patient preferences, comorbidities, previous drug use, risk factors not captured in the FRAX model (e.g. frailty, falls, vitamin D deficiency, increased bone turnover, interval significant decline in bone density) and possible under or overestimation of fracture risk by FRAX. Additional medical evaluation for secondary cause of low bone mineral density may be appropriate. FUTURE SCAN RECOMMENDATION: People with diagnosed cases of osteoporosis or at high risk for fracture should have regular bone mineral density tests. For patients eligible for Medicare, routine testing is allowed once every 2 years. The testing frequency can be increased to one year for patients who have rapidly progressing disease, those who are receiving or discontinuing medical therapy to restore bone mass, or have additional risk factors.
== END 2023-07-01 13:14 | disposition home or self-care (01) ==
LOC: HO.MAMMO 13:13
PROVIDERS: PCP Internal Medicine; Visit Provider Internal Medicine
DX: Z13.820 Encounter for screening for osteoporosis (principal); Z78.0 Asymptomatic menopausal state
CPT/HCPCS: 77080

== ENCOUNTER 2023-09-02 10:29 | Outpatient (REF) | payer MEDICARE, SELFPAY ==
--- NOTE | 2023-09-02 16:30 | MHC.AU.HA3 ---
Hearing Instrument Follow-Up- Binaural Date of Visit: 09/02/23 Right Ear: Shlomo, Model, Color, Serial Number: Sherman Olsen [id number] SN: [id number] Color: Jazzmine Auto Research Engineer Repair Warranty: 09/17/2025 Auto Research Engineer Loss and Damage Warranty: 09/09/2025 Service Plan: 07/02/2025 Battery Size: 13 Manager Motor/Slim Tube: 2 UP Earmold/Dome/CShell/SlimTip:cShell #[id number], Warranty 09/11/2022 Type of Wax Guard: CeruStop Dispensed By: Date of Fittin07/02/2022 Left Ear: Shlomo, Model, Color, Serial Number: Sherman Olsen [id number] SN: [id number] Color: Jazzmine Auto Research Engineer Repair Warranty: 09/17/2025 Auto Research Engineer Loss and Damage Warranty: 09/09/2025 Service Plan: 07/02/2025 Battery Size: 13 Manager Motor/Slim Tube: 2 UP Earmold/Dome/CShell/SlimTip: cShell #[id number] Warranty 09/11/2022 Type of Wax Guard: CeruStop Dispensed By: Date of Fittin07/02/2022 Follow-Up Summary: Aminta arrived wearing her old bicros, reporting continued difficulty understanding speech; she feels her hearing aids are simultaneously too loud/harsh/lispy which can give her a headache and at times too soft. She also wants the ear-to-ear connection to be disabled again so she has independent VC. Reports intermittent streaming/phone connection. Discussed previous success with bicros verus binaural amplification, but she feels the bicros was unsafe as she could not localize sound, has no interest in considering a bicros system again. Connected to [employer] separately; in the right ear we disabled soundrecover2 which seemed to improve the lispy quality of speech, increased the lows which she reported made them more mellow , and increased noise management as she feels noise in all environments (ie grocery store) is overwhelming. She requested the overall volume be turned up, stating she would rather turn it down if she has to. In the left ear I maxed out the noise management and decreased the overall gain as she was reporting a distorted quality, which given her very poor WRS is likely interference from the left ear. She felt these settings were comfortable in the office. Deleted and repaired to her phone, though now only the right aid is connected to the ashley as they are not a binaural pair. She was fine with this. Aminta is concerned her hearing has changed and will request a doctor's order for an updated audiogram. Recommendations: Recommendations: Patient will call if problems persist. Return for updated audiogram Diagnosis Code(s): Primary Diagnosis: H90.3 Bilateral Sensorineural Hearing Loss Signature: Provider: Aaron Simental, CCC-A
== END 2023-09-02 10:30 | disposition home or self-care (01) ==
LOC: HO.HAP 10:29
PROVIDERS: Visit Provider Internal Medicine
DX: Z13.89 Encounter for screening for other disorder (principal)

== ENCOUNTER 2023-09-23 15:53 | Outpatient (REF) | payer MEDICARE, SELFPAY ==
--- NOTE | 2023-09-24 12:02 | MHC.AU.HA3 ---
Hearing Instrument Follow-Up- Binaural Date of Visit: 09/23/23 Echocardiograph Tech Used: Right Ear: Shlomo, Model, Color, Serial Number: Sherman Olsen [id number] SN: [id number] Color: Yudye Senior Systems Software Engineer Repair Warranty: 09/17/2025 Senior Systems Software Engineer Loss and Damage Warranty: 09/09/2025 [facility] Service Plan: 07/02/2025 Battery Size: 13 Editing Internship/Slim Tube: 2 UP Earmold/Dome/CShell/SlimTip:cShell #[id number], Warranty 09/11/2022 Type of Wax Guard: CeruStop Dispensed By: [facility] Date of Fittin07/02/2022 Left Ear: Shlomo, Model, Color, Serial Number: Sherman Olsen [id number] SN: [id number] Color: Yudye Senior Systems Software Engineer Repair Warranty: 09/17/2025 Senior Systems Software Engineer Loss and Damage Warranty: 09/09/2025 [facility] Service Plan: 07/02/2025 Battery Size: 13 Editing Internship/Slim Tube: 2 MP Earmold/Dome/CShell/SlimTip: cShell #[id number] Warranty 09/11/2022 Type of Wax Guard: CeruStop Dispensed By: [facility] Date of Fittin07/02/2022 Follow-Up Summary: Aminta is here for evaluation and hearing aid adjustment. A change in the hearing of her right ear noted. She states she has been planning on scheduling an appointment with Dr Rivers to check in regarding her Meniere's and recent increase in tinnitus; she also expressed some interest in discussing implants again. Aminta reports that every attempt to decrease background noise in her hearing aids seems to do the opposite. She also continues to experience a raspy sound quality with speech. We discussed the differences between manufacturers, and agreed we should continue working with these hearing aids for now but if she eventually wants to try something new, we will consider a different company. Initially worked on just right aid and set to semi-linear as Aminta expressed desire to go back to an analog aid-- full linear did not sound as good to her, but she reported significant improvement in clarity with semi-linear. She felt the clarity degraded once the left aid was put on, which she is aware might be interference of the poorer ear. Decreased gain after setting to semi-linear, which she reported sounded better. She will assess and return if these changes are not working out. Recommendations: Recommendations: Hearing instrument follow-up or maintenance as needed. Diagnosis Code(s): Primary Diagnosis: H90.3 Bilateral Sensorineural Hearing Loss Signature: Provider: Aaron Simental, CCC-A
== END 2023-09-23 15:54 | disposition home or self-care (01) ==
LOC: HO.SH 15:53
PROVIDERS: Visit Provider Internal Medicine
DX: Z01.118 Encounter for examination of ears and hearing with other abnormal findings (principal); H90.3 Sensorineural hearing loss, bilateral
CPT/HCPCS: 92557

== ENCOUNTER 2023-10-29 13:54 | Outpatient (REF) | payer SELFPAY | END 2023-10-29 13:55 | disposition home or self-care (01) | LOC: HO.HAP 13:54 | PROVIDERS: Visit Provider Internal Medicine | DX: Z13.89 Encounter for screening for other disorder (principal) ==

== ENCOUNTER 2024-01-05 10:47 | Outpatient (REF) | payer MEDICARE, SELFPAY ==
--- NOTE | ~2024-01-05 | MM_ITS ---
EXAMINATION: MM DIAGNOSTIC DIGITAL BREAST TOMOSYNTHESIS, BILATERAL CLINICAL INFORMATION: Bilateral screening. Follow-up right breast cancer status post lumpectomy 02/10/2022. COMPARISON: Mammography: 12/26/2022, 02/10/2022, 09/28/2020, and dating back to 2014. TECHNIQUE: Digital breast tomosynthesis is performed in both the craniocaudal and mediolateral oblique views along with computer-aided detection (CAD). Synthesized 2D images are generated from the tomosynthesis. In addition, 2-D spot magnification views of the lumpectomy site were obtained of the right breast in the CC and ML projections. FINDINGS: There are scattered areas of fibroglandular density (ACR BI-RADS breast composition Category b). Stable post lumpectomy changes right breast without change. No evidence of recurrent disease. No suspicious calcifications, developing new distortion, or developing mass lesion identified in either breast. Parenchymal pattern of the left breast is unchanged. MM/MM tomosynthesis diagnostic BI IMPRESSION: No findings in either breast suspicious for malignancy. Stable postsurgical changes right breast. ASSESSMENT: BI-RADS BI-RADS 2 - Benign Findings RECOMMENDATION: 1 year F/U Results were provided to the patient at time of visit by the technologist. This patient's information was entered into a reminder system with a target due date for their next mammogram.
== END 2024-01-05 10:48 | disposition home or self-care (01) ==
LOC: HO.MAMMO 10:47
PROVIDERS: PCP Internal Medicine; Visit Provider Surgery
DX: Z85.3 Personal history of malignant neoplasm of breast (principal); Z98.890 Other specified postprocedural states
CPT/HCPCS: 77062; 77066

== ENCOUNTER → 2024-01-05 11:00 | Outpatient (BNV) | payer MEDICARE, SELFPAY | PROVIDERS: PCP Internal Medicine; Visit Provider Radiology Diagnostic Radiology | DX: Z85.3 Personal history of malignant neoplasm of breast (principal) | CPT/HCPCS: 77062; 77066 ==

== ENCOUNTER 2024-01-05 15:05 | Outpatient (REF) | payer SELFPAY ==
--- NOTE | 2024-01-06 12:56 | MHC.AU.HA3 ---
Hearing Instrument Follow-Up- Binaural Date of Visit: 01/05/24 Right Ear: Shlomo, Model, Color, Serial Number: Sherman Olsen [id number] SN: [id number] Color: Yudye Clerk Rating Repair Warranty: 09/17/2025 Clerk Rating Loss and Damage Warranty: 09/09/2025 [facility] Service Plan: 07/02/2025 Battery Size: 13 Pyridine Operator/Slim Tube: 2 UP Earmold/Dome/CShell/SlimTip:cShell #[id number], Warranty 09/11/2022 Type of Wax Guard: CeruStop Dispensed By: [facility] Date of Fittin07/02/2022 Left Ear: Shlomo, Model, Color, Serial Number: Sherman Olsen [id number] SN: [id number] Color: Yudye Clerk Rating Repair Warranty: 09/17/2025 Clerk Rating Loss and Damage Warranty: 09/09/2025 [facility] Service Plan: 07/02/2025 Battery Size: 13 Pyridine Operator/Slim Tube: 2 UP Earmold/Dome/CShell/SlimTip: cShell #[id number] Warranty 09/11/2022 Type of Wax Guard: CeruStop Dispensed By: [facility] Date of Fittin07/02/2022 Follow-Up Summary: Seen for adjustment. Reports that following her last adjustment in October she has had issues with echo in her own voice as well as other speakers. Notes voices have a shh quality. Also notes voices have a hollow quality. Reports both aids have been chronically disconnected from the ashley- unable to make adjustments to volume or background noise. Notes too much background noise in general. Notes loud sounds are too loud- cause her to startle. Also reports increasing overall gain about 3 steps daily. She is interested in captioning options for her phone. Also interested in TV streamer. Notes tinnitus has been worse recently. Reports recent visit with ENT who recommended a CI, she reports not being interested in pursuing that at this time. Cleaned and checked aids, listening check positive. Programmed aids in single session so they will both connect to her phone and show up in ashley. Set occlusion management to medium to help with own voice issues. Decreased MPO three steps to help with loud sounds being startlingly loud. Increased overall gain 3 steps so client does not have to do this daily as reported. Disabled sound recover to manage shhh quality reported in speech. Evaluated noise management settings, many are already set to the maximum across automatic programs, increased settings that had room to be increased further. Discussed captioning options, she will explore downloadable apps. Discussed captioncall- has options for smart phones and landline if needed. Aminta reports that if she doesn't like the apps she tries she will let us know so we can submit captioncall request. Aminta would like to proceed with purchasing a TV streamer at this time, quoted $375. She reports feeling that the streamer is worth it even if she decides to proceed with trying hearing aids from a different cloth folder machine in the next year or two. Pt requested gain adjustment for her back up aids as she uses them at times but feels they aren't loud enough. Encountered issue connecting and we were already 20 minutes over 30 minute appointment. Recommendations: Recommendations: -Patient will be contacted when materials have arrived. -Aminta has an appt. scheduled to grain picker streamer but would like a call when it is in so she knows it will be here. -Increase gain on back up aids as requested at next appointment. Diagnosis Code(s): Primary Diagnosis: H90.3 Bilateral Sensorineural Hearing Loss Signature: Provider: Jose Adhikari, [facility]
== END 2024-01-05 15:06 | disposition home or self-care (01) ==
LOC: HO.HAP 15:05
PROVIDERS: Visit Provider Internal Medicine
DX: Z13.89 Encounter for screening for other disorder (principal)

== ENCOUNTER 2024-01-21 10:21 | Outpatient (AMB) | payer MEDICARE, SELFPAY ==
--- NOTE | 2024-01-21 10:29 | MHC.OFFVIS ---
Intake Visit Reasons: 6 mth breast exam Intake Note: Patient is seen in office for 6 month follow up visit, breast exam. Pt c/o: over the winter had pain in the right axilla that radiated to the arm, pain is gone, has a elba right breast near the axilla started as a scar, was given lotion and started to get raw mm:01/05/24 Fnp Required: No Electric Knife Operator: Electric Knife Operator Present Accompanied by: Self / Same As Patient Allergies clindamycin [CLINDAMYCIN] Allergy (Severe, Verified 01/21/24 10:36) SEVERE RASH cefaclor [From CECLOR] Allergy (Intermediate, Verified 01/21/24 10:36) RASH hydrochlorothiazide [HYDROCHLOROTHIAZIDE] Allergy (Intermediate, Verified 01/21/24 10:36) MUSCLE CRAMPING Medication List - Last Reconciled 01/21/24 by Luis Fernando Batista MD atenolol (Tenormin) 25 mg PO DAILY atorvastatin 20 mg PO DAILY [Colace 100 mg PO NEEDED PRN] letrozole 2.5 mg PO DAILY lorazepam 0.5 mg PO BID PRN meclizine 25 mg PO TID PRN vit C,N-Vo-rvroy-lutein-zeaxan 250-90-40-1 mg (PreserVision AREDS-2) 1 tab PO BID HPI Comments Details: 78-year-old female patient returning for a routine breast examination following right breast cancer surgery. 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 She subsequently underwent a right breast lumpectomy with needle localization and right axillary sentinel node biopsy on 02/10/2022. Pathology confirmed invasive carcinoma with lobular features, 9 mm with DCIS. One sentinel node lymph node was negative for tumor. Margins were wide widely negative for both invasive and DCIS. She was evaluated by Dr. Oro on 03/05/[address] Borden. She started letrozole 2.5 mg p.o. daily. After discussion with radiation oncology decision was made to avoid the radiation therapy and treat only with the aromatase inhibitor. She generally feels well but does occasionally have some soreness in the right breast towards the axilla. Most recent mammogram of 01/05/2024 revealed no mammographic evidence of malignancy, stable postoperative changes (BI-RADS 2). Follow-up mammogram in 1 year is recommended. She feels well and denies any ongoing breast symptoms. She does have a small red elba in the right axilla was just not changed significantly in 2 years and does not cause any discomfort. [facility] Medical History Meniere disease Migraines GERD (gastroesophageal reflux disease) HLD (hyperlipidemia) HTN (hypertension) Surgical History H/O removal of cyst (~12/22/85) History of lumpectomy of right breast (02/10/22) Hx of bilateral cataract extraction History of D&C History of removal of ovarian cyst History of appendectomy History of cholecystectomy History of lumpectomy of left breast Family History Father Lung cancer Maternal Aunt Breast cancer Uterine cancer Maternal Grandmother Throat cancer Carcinoma of nose Maternal Uncle Throat cancer Carcinoma of nose Brother Prostate CA Social History Household Members: Spouse Housing: House Alcohol intake: never Patient Tobacco Use Status: Never used Tobacco service: No Current occupational status: retired Female Reproductive History Menstrual Age of Menarche: 11 Review of Systems Const Denies chills, Denies fever(s), Denies headache(s) and Denies poor appetite ENT Denies dizziness and Denies headache(s) Card Denies chest pain, Denies rapid heart rate, Denies palpitations and Denies slow heart rate Resp Denies chest congestion, Denies cough, Denies pain on inspiration and Denies wheezing GI Denies abdominal pain, Denies bloating, Denies change in stool character, Denies constipation, Denies diarrhea, Denies nausea, Denies vomiting and Denies hematemesis Denies nipple discharge Musc Denies back pain, Denies arthralgias, Denies joint swelling and Denies numbness Skin/Breast Denies breast swelling, Denies breast skin changes, Denies breast pain, Denies breast mass, Denies change in breast shape, Denies change in pigmentation, Denies nipple discharge, Denies erythema and Denies rash Neuro Denies dizziness, Denies headache(s) and Denies numbness Psych Denies anxiety and Denies depression Endo Denies palpitations Obie/Lymph Denies easy bleeding, Denies easy bruising and Denies lymphadenopathy Aller/Immun Denies wheezing Physical Exam Const General: cooperative, no acute distress and well developed Nutritional Appearance: well nourished Orientation/consciousness: patient oriented x3 Limitations: no limitations HEENT Head: Yes normocephalic and Yes atraumatic Ears: hearing grossly normal bilaterally Neck Neck: Yes no lymphadenopathy Chest Other: Right breast: Well-healed incision in the upper outer quadrant and axilla. Small red elba noted which appears to be a seborrheic keratosis. No palpable mass, nipple discharge, or enlarged lymph nodes appreciated. Left breast: No new skin change, nipple discharge, nipple retraction, palpable mass, or enlarged lymph nodes. Resp Effort & Inspection: normal respiratory effort, no audible wheezes, no cough and no respiratory distress Skin Other: Warm, dry, no rash Neuro Other: Mobility Assessment: 1. 3 meter assessment time (seconds): 6 seconds 2. Gait observations: Normal balance and gait General: patient oriented x3 Extrem Other: No edema right upper extremity Assessment & Plan Assessment & Plan (1) Invasive ductal carcinoma of right breast: Code(s): C50.911 - Malignant neoplasm of unspecified site of right female breast Category: Medical Plan 78-year-old female patient returning following lumpectomy needle localization right breast, right axillary sentinel node biopsy. AJCC stage-pT1b N0. Prognostic Stage IA, ER/UT positive HER2 negative.? Ki-67 immunostain 15%. She completed her medical and radiation oncology evaluation and is currently taking letrozole. It was decided to hold off on radiation therapy. She generally feels well and occasionally notes some sharp pain in the right upper breast. Examination today revealed no suspicious findings in either breast. The right breast incisions are well healed. I recommended continued self examination on a monthly basis. She should return in 6 months for follow-up breast examination. Mammogram performed on 01/05/2024 revealed no mammographic evidence of malignancy with post surgery changes (BI-RADS 2). Twelve month follow-up mammogram is recommended. She will continue her follow-up with Dr. Oro. Coding Level of Care Code Est Pt Level 3 (12953) Diagnoses Invasive ductal carcinoma of right breast C50.911
== END 2024-01-21 11:07 | disposition home or self-care (01) ==
PROVIDERS: PCP Internal Medicine; Visit Provider Surgery
DX: C50.911 Malignant neoplasm of unspecified site of right female breast (principal)
CPT/HCPCS: 99213

== ENCOUNTER → 2024-01-21 10:21 | Outpatient (BNVA) | payer MEDICARE, SELFPAY | PROVIDERS: PCP Internal Medicine; Visit Provider Surgery | DX: C50.911 Malignant neoplasm of unspecified site of right female breast (principal); Z17.0 Estrogen receptor positive status [ER+] | CPT/HCPCS: 99212 ==

== ENCOUNTER 2024-01-22 08:48 | Outpatient (REF) | payer SELFPAY ==
--- NOTE | 2024-01-22 11:08 | MHC.AU.HA3 ---
Hearing Instrument Follow-Up- Binaural Date of Visit: 01/22/24 Right Ear: Make, Model, Color, Serial Number: Sherman Isbello [id number] SN: [id number] Color: Yudye Case Management Rn Repair Warranty: 09/17/2025 Case Management Rn Loss and Damage Warranty: 09/09/2025 [facility] Service Plan: 07/02/2025 Battery Size: 13 Entry Level Lab Technician/Slim Tube: 2 UP Earmold/Dome/CShell/SlimTip:cShell #[id number], Warranty 09/11/2022 Type of Wax Guard: CeruStop Dispensed By: [facility] Date of Fittin07/02/2022 Left Ear: Make, Model, Color, Serial Number: Sherman Isbello [id number] SN: [id number] Color: Jazzmine Case Management Rn Repair Warranty: 09/17/2025 Case Management Rn Loss and Damage Warranty: 09/09/2025 [facility] Service Plan: 07/02/2025 Battery Size: 13 Entry Level Lab Technician/Slim Tube: 2 M (previously labeled UP, however software and invoice from [employer] all suggest the senior radiation therapist is an M) Earmold/Dome/CShell/SlimTip: cShell #[id number] Warranty 09/11/2022 Type of Wax Guard: CeruStop Dispensed By: [facility] Date of Fittin07/02/2022 Follow-Up Summary: -Aminta was recently here on 01/06/24. She reports her hearing aids have been less scratchy but is still bothered by an abrasive quality of the aids as compared to her old amplification which sounded smoother. Decreased gain slightly both aids for the highest pitch sounds. Improvement reported. Discussed trade offs of clarity vs. comfort when it comes to high frequency information. Noted that audible feedback was coming from the aids when Aminta increased volume in office. Ran feedback university manager, resolved. -Aminta reports the aids feel intermittent, that at times she suddenly hears very clearly for a brief time. Does not seem to be situation specific. Notes this has been longstanding but seems to occur with more frequency. Also discussed quality of streamed speech from videos vs. phone calls, noting trouble hearing phone calls. Questions if aids/molds should go to furnace checker for a look at internal components. Advised we can do so, aids are under warranty, possible charge for c-shell, we would have to ask Sherman to let us know if there will be a charge. She may drop the aids off to go to [employer] after her granddaughter's graduation next week. - Discussed her recent ENT appt. and CI suggestion. Aminta reports feeling like the ENT was pushing surgery. Suggested going for the CI evaluation as an opportunity to meet with a CI miter sawyer and learn more about the process and outcomes. -Aminta is wondering about a different hearing aid/ furnace checker before considering an implant. Recommended trying a different furnace checker, BTE, such as OtC-nario as a next step. -Increased overall gain 5 steps on back up aids at pt. request. -Aminta still wanted the TV connector even though she may try a different hearing aid and have a CI consult. Dispensed TV connector, explained set up. Recommendations: Recommendations: Hearing instrument follow-up or maintenance as needed. Recommendations (Other): Aminta will drop off her [employer] Audeo P 70 hearing aids to go to furnace checker if she continues to feel they are functioning intermittently. Diagnosis Code(s): Primary Diagnosis: H90.3 Bilateral Sensorineural Hearing Loss Secondary Diagnosis: H90.3 Bilateral Sensorineural Hearing Loss Signature: Provider: Jose Adhikari, [facility]
== END 2024-01-22 08:49 | disposition home or self-care (01) ==
LOC: HO.HAP 08:48
PROVIDERS: Visit Provider Internal Medicine
DX: Z46.1 Encounter for fitting and adjustment of hearing aid (principal); H90.3 Sensorineural hearing loss, bilateral
CPT/HCPCS: V5267; V5274

== ENCOUNTER 2024-01-27 08:47 | Outpatient (AMB) | payer MEDICARE, SELFPAY ==
--- NOTE | 2024-01-27 08:48 | MHC.OFFVIS ---
Vital Signs 01/27/24 08:49 Height 5 ft 8 in Weight 193 lb BMI 29.3 Intake Visit Reasons: New Pt - Right Palm Cyst Intake Note: Aminta 78 yr old right hand dominant female presents today for a new patient visit for her right hand bump. States she noticed this bump on her plam for about 1 year now. She explains that the cyst felt like it was stinging for some time and has some increased discomfort in the palm with full extension of the hand. Denies numbness and tingling. Allergies clindamycin [CLINDAMYCIN] Allergy (Severe, Verified 01/27/24 08:53) SEVERE RASH cefaclor [From CECLOR] Allergy (Intermediate, Verified 01/27/24 08:53) RASH hydrochlorothiazide [HYDROCHLOROTHIAZIDE] Allergy (Intermediate, Verified 01/27/24 08:53) MUSCLE CRAMPING HPI HPI New Pt - Right Palm Cyst: Details: Aminta is an 79 year old right hand dominant woman who presents with a mass on her right palm. She complains of a mass on her right palm, over the fourth metacarpal. She says this has been present for ~1 year now. She has discomfort around the nodule, described as soreness when fully extending her fingers. She also reports occasional stinging in the palmar crease when at full extension. She denies any injury to the area prior to onset of the mass. Denies any erythema, swelling, ecchymosis, or tenderness at the area of the mass. The patient is concerned that opening containers and jars for herself and no longer has any tenderness also very pleased with the hands so he is her may have led to mass formation. The patient is retired. She denies any numbness, tingling, or prior treatment. She says she has a hx of a breast cancer lumpectomy in 2021, and has concerns of possible cancer if she has any masses. She says she is working to document a family medical history for her nieces and nephews. [facility] Medical History Meniere disease Migraines GERD (gastroesophageal reflux disease) HLD (hyperlipidemia) HTN (hypertension) Surgical History H/O removal of cyst (~12/22/85) History of lumpectomy of right breast (02/10/22) Hx of bilateral cataract extraction History of D&C History of removal of ovarian cyst History of appendectomy History of cholecystectomy History of lumpectomy of left breast Family History Father Lung cancer Maternal Aunt Breast cancer Uterine cancer Maternal Grandmother Throat cancer Carcinoma of nose Maternal Uncle Throat cancer Carcinoma of nose Brother Prostate CA Social History Household Members: Spouse Housing: House Alcohol intake: never Patient Tobacco Use Status: Never used Tobacco service: No Current occupational status: retired Female Reproductive History Menstrual Age of Menarche: 11 Review of Systems Const All systems reviewed & are unremarkable except as noted in HPI and below Physical Exam Vital Signs: BMI result Body Mass Index 29.3 Const Other: Patient is alert, oriented, cooperative, and in no acute distress General: cooperative, healthy appearing and no acute distress Orientation/consciousness: patient oriented x3 HEENT Head: Yes normocephalic and Yes atraumatic Eyes EOM: EOMs intact bilaterally Neck Neck: Yes no JVD Resp Effort & Inspection: normal respiratory effort and able to speak in complete sentences Cardio Jugular venous distension: no JVD Skin General skin exam: turgor normal Rashes: no rashes Neuro General: patient oriented x3 Cognition (Neuro): normal cognition Extrem Other: Evaluation of Right Upper Extremity: The patient is alert, oriented, and in no acute distress Neuro: Median, Ulnar, Radial nerves motor and sensory intact and sensation is normal to the tips of all digits Vascular: Cap refill brisk ROM: She can make a fist and extend all her digits No locking or catching Patient reports discomfort, described as stiffness and occasional stinging , at and around the nodule, particularly at the palmar crease, when the fingers are in full extension Skin: No lacerations or abrasions. General: No Ecchymosis. No Erythema or evidence of infection. There are two nodules on her palm, in line with the ring finger at the level of the mid-palmar crease. Two nodules appear to be the early stages of cord formation on either side of the mid-palmar crease, no contracture. Nodules combine to be approximately 1.5 cm long and 5mm wide. Nodules are nontender to palpation. Negative table-top test. 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 Right Dupuytrens nodules Measuring ~1.5cm in length & ~5mm in width, in line with the ring finger The two nodules combined are linear, on either side of the mid-palmar crease and beginning to form a cord No evidence of contracture I educated her about this condition I discussed operative and non-operative treatment options No operative intervention warranted at this time I directed her to the [email or web address] website for more information about this condition If she develops a worsening cord or new contracture, she may follow up to discuss surgical intervention Otherwise, she can follow up prn. Scribed for Payal Domínguez MD by Devin Leos medical authorization specialist, on 01/27/24 at 9:45 AM, EST. Coding Level of Care Code New Pt Level 3 (57367) Diagnoses Dupuytren's disease of palm of right hand M72.0 Time Spent (min) 26
[2024-01-27 08:49] VITALS: BMI 29.3
== END 2024-01-27 09:56 | disposition home or self-care (01) ==
PROVIDERS: PCP Internal Medicine; Visit Provider Orthopaedic Surgery
DX: M72.0 Palmar fascial fibromatosis [Dupuytren] (principal)
CPT/HCPCS: 99203

== ENCOUNTER → 2024-01-27 08:47 | Outpatient (BNVA) | payer MEDICARE, SELFPAY | PROVIDERS: PCP Internal Medicine; Visit Provider Orthopaedic Surgery | DX: M72.0 Palmar fascial fibromatosis [Dupuytren] (principal) | CPT/HCPCS: 99202 ==

== ENCOUNTER 2024-02-05 09:02 | Outpatient (REF) | payer MEDICARE, SELFPAY ==
[2024-02-05 10:22] LABS: MANUAL DIFF FLAG NO
[2024-02-05 10:37] LABS: Basophils Percent Auto 0.9 % (0-2); Eosinophils Absolute Auto 0.1 X10*3/uL (0.0-0.4); Eosinophils Percent Auto 1.2 % (0-4); Hematocrit 42.7 % (37.0-47.0); Hemoglobin 14.3 g/dl (12.0-16.0); Imm Gran Abs Auto 0.01 X10*3/uL (0.00-0.03); Imm Gran Pct Auto 0.2 % (0.0-0.4); Lymphocytes Absolute Auto 1.7 X10*3/uL (1.2-4.9); Lymphocytes Percent Auto 39.5 % (20-40); Mean Corpuscular HGB Conc 33.5 g/dl (31.0-35.0); Mean Corpuscular Hemoglobin 31.3 pg (27.0-33.0); Mean Corpuscular Volume 93.4 fL (80.0-98.0); Mean Platelet Volume 12.8 fL (9.4-12.3); Monocytes Absolute Auto 0.4 X10*3/uL (0.1-1.2); Neutrophils Absolute Auto 2.1 x10*3/uL (2.0-8.3); Neutrophils Percent Auto 49.2 % (45-73); Platelet Count 155 X10*3/uL (160-400); Red Blood Count 4.57 X10*6/uL (4.20-5.50); Red Cell Distribution Width 13.7 % (11.0-16.0); White Blood Count 4.2 X10*3/uL (4.8-10.8)
[2024-02-05 11:21] LABS: Alanine Aminotransferase 11 U/L (0-31); Alkaline Phosphatase 107 U/L (39-117); Anion Gap 13 (12-20); Aspartate Amino Transferase 15 U/L (5-31); Bilirubin Total 0.8 mg/dL (0.0-1.0); Blood Urea Nitrogen 10 mg/dL (9-16); Calcium 9.1 mg/dL (8.4-10.2); Carbon Dioxide 27 mmol/L (22-29); Chloride 108 mmol/L (96-108); Cholesterol 179 mg/dL (<200); Estimated Glomerular Filt Rate > 60; Glucose Fasting 98 mg/dL (60-99); HDL Cholesterol 67 mg/dL (>40); LDL Cholesterol Calculated 89 mg/dL (<100); Potassium 3.7 mmol/L (3.3-5.1); Sodium 144 mmol/L (135-145); Thyroid Stimulating Hormone 1.03 uIU/mL (0.32-4.0); Total Protein 6.6 g/dL (6.5-8.0); Triglycerides 119 mg/dL (<150)
== END 2024-02-05 09:03 | disposition home or self-care (01) ==
LOC: HO.HMGCLDS 09:02
PROVIDERS: PCP Internal Medicine; Visit Provider Internal Medicine
DX: I10 Essential (primary) hypertension (principal); C50.411 Malignant neoplasm of upper-outer quadrant of right female breast; E78.00 Pure hypercholesterolemia, unspecified
CPT/HCPCS: 36415; 80053; 80061; 84443; 85025

== ENCOUNTER 2024-02-09 12:52 | Outpatient (REF) | payer MEDICARE, SELFPAY | END 2024-02-09 12:53 | disposition home or self-care (01) | LOC: HO.HAP 12:52 | PROVIDERS: Visit Provider Internal Medicine | DX: Z13.89 Encounter for screening for other disorder (principal) ==

== ENCOUNTER 2024-02-26 07:55 | Outpatient (REF) | payer MEDICARE, SELFPAY | END 2024-02-26 07:56 | disposition home or self-care (01) | LOC: HO.HAP 07:55 | PROVIDERS: Visit Provider Internal Medicine | DX: Z13.89 Encounter for screening for other disorder (principal) ==

== ENCOUNTER 2024-06-28 14:17 | Outpatient (REF) | payer SELFPAY ==
--- NOTE | 2024-06-29 08:20 | MHC.AU.HA3 ---
Hearing Instrument Follow-Up- Binaural Date of Visit: 06/28/24 Right Ear: Shlomo, Model, Color, Serial Number: Sherman Olsen [id number] SN: [id number] Color: Yudye [employer] Ax Consultant Repair Warranty: 09/17/2025 [employer] Ax Consultant Loss and Damage Warranty: 09/09/2025 [facility] Service Plan: 07/02/2025 Battery Size: 13 Fagot Heater/Slim Tube: 2 UP Earmold/Dome/CShell/SlimTip:cShell #[id number], Warranty 09/11/2022 Type of Wax Guard: CeruStop Dispensed By: [facility] Date of Fittin07/02/2022 Left Ear: Shlomo, Model, Color, Serial Number: Sherman Olsen [id number] SN: [id number] Color: Yudye [employer] Ax Consultant Repair Warranty: 09/17/2025 [employer] Ax Consultant Loss and Damage Warranty: 09/09/2025 [facility] Service Plan: 07/02/2025 Battery Size: 13 Fagot Heater/Slim Tube: 2 UP Earmold/Dome/CShell/SlimTip: cShell #[id number] Warranty 09/11/2022 Type of Wax Guard: CeruStop Dispensed By: [facility] Date of Fittin07/02/2022 Follow-Up Summary: Primarily uses old HAs. Still same concerns with newer HAs - hollow, echo-y, scratchy, harsh, sharp voices, background noise unbearable, cannot hold a conversation with anyone, disconnects from phone, degree of loudness causes headaches. Reportedly with old HAs, can hear better, supplement with lip reading, and contribute to conversations. Still does not think it is related to BiCROS vs two HAs because even with only right HUBER, same complaints still apply. Performed real ear on old right HUBER and then on new right HUBER. Adjusted settings of new HUBER to match frequency response of old HUBER, even through significantly underfit. At that level, new HUBER reportedly too soft. Increased overall gain significantly to Aminta's preference. Noted sound quality to be more mild/mellow, not as raspy, hallow after adjustments. Checked phone connection. Still connected to phone and ashley - unsure cause of disconnection. Requested [employer] phone and [id number] ashley recommendations. Will complete [employer] Certification form and email to rep as well as email Aminta with [id number] ashley recommendations. Aminta questions if new EM would help. Reportedly better sound quality, less echo-y when she pushes EM in. Also questions if new/different HUBER would be beneficial. Advised cannot guarantee but could try. Still no interest in CI at this time. Opted to try these programming adjustments again first. May need to request appointment with Phonak sprayer machine to help with difficult fitting. Recommendations: Hearing instrument follow-up or maintenance as needed. Please contact our clinic with any questions or concerns. Diagnosis Code(s): Primary Diagnosis: H90.3 Bilateral Sensorineural Hearing Loss Signature: Provider: Jose Tavarez, [facility]
== END 2024-06-28 14:18 | disposition home or self-care (01) ==
LOC: HO.HAP 14:17
PROVIDERS: Visit Provider Internal Medicine
DX: Z13.89 Encounter for screening for other disorder (principal)

== ENCOUNTER 2024-07-26 10:26 | Outpatient (AMB) | payer MEDICARE, SELFPAY ==
--- NOTE | 2024-07-26 10:32 | MHC.OFFVIS ---
Vital Signs 07/26/24 10:41 Height 5 ft 8 in Weight 186 lb BMI 28.3 BP 155/73 H Blood Pressure Location Lt brachial Position Sitting Pulse 70 Intake Visit Reasons: 6 mth breast exam Intake Note: Patient is seen in office for 6 month follow up visit, breast exam. Pt c/o: right side aches comes and goes near the right breast/axilla, has a spot in the area looks like a spot sees clothing supervisor for it and would like the Dr to look at it Design Engineering Intern Required: No Lining Repairer: Lining Repairer Present Accompanied by: Self / Same As Patient Allergies clindamycin [CLINDAMYCIN] Allergy (Severe, Verified 07/26/24 10:41) SEVERE RASH cefaclor [From CECLOR] Allergy (Intermediate, Verified 07/26/24 10:41) RASH hydrochlorothiazide [HYDROCHLOROTHIAZIDE] Allergy (Intermediate, Verified 07/26/24 10:41) MUSCLE CRAMPING HPI Comments Details: 79-year-old female patient returning for a routine breast examination following right breast cancer surgery. 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 She subsequently underwent a right breast lumpectomy with needle localization and right axillary sentinel node biopsy on 02/10/2022. Pathology confirmed invasive carcinoma with lobular features, 9 mm with DCIS. One sentinel node lymph node was negative for tumor. Margins were wide widely negative for both invasive and DCIS. She was evaluated by Dr. Oro on 03/05/[address] Borden. She started letrozole 2.5 mg p.o. daily. After discussion with radiation oncology decision was made to avoid the radiation therapy and treat only with the aromatase inhibitor. She generally feels well but does occasionally have some soreness in the right breast towards the axilla. Most recent mammogram of 01/05/2024 revealed no mammographic evidence of malignancy, stable postoperative changes (BI-RADS 2). Follow-up mammogram in 1 year is recommended. She feels well and denies any ongoing breast symptoms. She does have a small red elba in the right axilla was just not changed significantly in 2 years and does not cause any discomfort. [facility] Medical History Meniere disease Migraines GERD (gastroesophageal reflux disease) HLD (hyperlipidemia) HTN (hypertension) Surgical History H/O removal of cyst (~12/22/85) History of lumpectomy of right breast (02/10/22) Hx of bilateral cataract extraction History of D&C History of removal of ovarian cyst History of appendectomy History of cholecystectomy History of lumpectomy of left breast Family History Father Lung cancer Maternal Aunt Breast cancer Uterine cancer Maternal Grandmother Throat cancer Carcinoma of nose Maternal Uncle Throat cancer Carcinoma of nose Brother Prostate CA Social History Household Members: Spouse Housing: House Alcohol intake: never Patient Tobacco Use Status: Never used Tobacco service: No Current occupational status: retired Female Reproductive History Menstrual Age of Menarche: 11 Review of Systems Const Denies chills, Denies fever(s), Denies headache(s) and Denies poor appetite ENT Denies dizziness and Denies headache(s) Card Denies chest pain, Denies rapid heart rate, Denies palpitations and Denies slow heart rate Resp Denies chest congestion, Denies cough, Denies pain on inspiration and Denies wheezing GI Denies abdominal pain, Denies bloating, Denies change in stool character, Denies constipation, Denies diarrhea, Denies nausea, Denies vomiting and Denies hematemesis Denies nipple discharge Musc Denies back pain, Denies arthralgias, Denies joint swelling and Denies numbness Skin/Breast Denies breast swelling, Denies breast skin changes, Denies breast pain, Denies breast mass, Denies change in breast shape, Denies change in pigmentation, Denies nipple discharge, Denies erythema and Denies rash Neuro Denies dizziness, Denies headache(s) and Denies numbness Psych Denies anxiety and Denies depression Endo Denies palpitations Obie/Lymph Denies easy bleeding, Denies easy bruising and Denies lymphadenopathy Aller/Immun Denies wheezing Physical Exam Const General: cooperative, no acute distress and well developed Nutritional Appearance: well nourished Orientation/consciousness: patient oriented x3 Limitations: no limitations HEENT Head: Yes normocephalic and Yes atraumatic Ears: hearing grossly normal bilaterally Neck Neck: Yes no lymphadenopathy Chest Other: Right breast: Well-healed incision in the upper outer quadrant and axilla. Small red elba noted which appears to be a seborrheic keratosis. No palpable mass, nipple discharge, or enlarged lymph nodes appreciated. Left breast: No new skin change, nipple discharge, nipple retraction, palpable mass, or enlarged lymph nodes. Resp Effort & Inspection: normal respiratory effort, no audible wheezes, no cough and no respiratory distress Skin Other: Warm, dry, no rash Neuro Other: Mobility Assessment: 1. 3 meter assessment time (seconds): 7 seconds 2. Gait observations: Normal balance and gait General: patient oriented x3 Extrem Other: No edema right upper extremity Assessment & Plan Assessment & Plan (1) Invasive ductal carcinoma of right breast: Code(s): C50.911 - Malignant neoplasm of unspecified site of right female breast Category: Medical Plan 79-year-old female patient returning following lumpectomy needle localization right breast, right axillary sentinel node biopsy. AJCC stage-pT1b N0. Prognostic Stage IA, ER/DC positive HER2 negative.? Ki-67 immunostain 15%. She completed her medical and radiation oncology evaluation and is currently taking letrozole. It was decided to hold off on radiation therapy. She generally feels well and occasionally notes some sharp pain in the right upper breast. Examination today revealed no suspicious findings in either breast. The right breast incisions are well healed. I recommended continued self examination on a monthly basis. She should return in 6 months for follow-up breast examination. Mammogram performed on 01/05/2024 revealed no mammographic evidence of malignancy with post surgery changes (BI-RADS 2). Twelve month follow-up mammogram is recommended. She will continue her follow-up with Dr. Oro. Coding Level of Care Code Est Pt Level 3 (10830) Diagnoses Invasive ductal carcinoma of right breast C50.911
[2024-07-26 10:41] VITALS: BP 155/73; PULSE 70; BMI 28.3
== END 2024-07-26 10:58 | disposition home or self-care (01) ==
PROVIDERS: PCP Internal Medicine; Visit Provider Surgery
DX: C50.911 Malignant neoplasm of unspecified site of right female breast (principal)
CPT/HCPCS: 99213

== ENCOUNTER → 2024-07-26 10:26 | Outpatient (BNVA) | payer MEDICARE, SELFPAY | PROVIDERS: PCP Internal Medicine; Visit Provider Surgery | DX: C50.911 Malignant neoplasm of unspecified site of right female breast (principal); N64.4 Mastodynia; Z79.899 Other long term (current) drug therapy | CPT/HCPCS: 99212 ==

== ENCOUNTER 2024-08-09 13:48 | Outpatient (REF) | payer SELFPAY ==
--- NOTE | 2024-08-10 10:50 | MHC.AU.HA3 ---
Hearing Instrument Follow-Up- Binaural Date of Visit: 08/09/24 Right Ear: Shlomo, Model, Color, Serial Number: Sherman Olsen [id number] SN: [id number] Color: Joaquínagne Hydraulic Press In Operator Repair Warranty: 09/17/2025 Hydraulic Press In Operator Loss and Damage Warranty: 09/09/2025 [facility] Service Plan: 07/02/2025 Battery Size: 13 Carry Out Clerk/Slim Tube: 2 UP Earmold/Dome/CShell/SlimTip:cShell #[id number], Warranty 09/11/2022 Type of Wax Guard: CeruStop Dispensed By: [facility] Date of Fittin07/02/2022 Left Ear: Shlomo, Model, Color, Serial Number: Sherman Isbello [id number] SN: [id number] Color: Joaquínagne Hydraulic Press In Operator Repair Warranty: 09/17/2025 Hydraulic Press In Operator Loss and Damage Warranty: 09/09/2025 [facility] Service Plan: 07/02/2025 Battery Size: 13 Carry Out Clerk/Slim Tube: 2 UP Earmold/Dome/CShell/SlimTip: cShell #[id number] Warranty 09/11/2022 Type of Wax Guard: CeruStop Dispensed By: [facility] Date of Fittin07/02/2022 Follow-Up Summary: Same issues with sound quality. Making no progress with newer HAs, keeps going back to previous pair which are more comfortable and at least able to engage in some conversation. Thinks new HAs have too much technology. Still hollow, high-pitched sound quality. After wearing for extending periods of time, gets earaches because sound is too hard. When streaming from phone or watching TV, will get perfect clarity for 1-2 minutes then it goes away. Sometimes hears well through phone, other times cannot. Background noise is overwhelming with both sets of HAs. Adjustments through ashley make no difference. Does not think it is related to just her hearing as she reportedly does significantly better with old HAs. Will do anything to hear better. Tried to match settings from old HUBER to new HUBER in [employer]. Given ongoing issues with sound quality, offered to schedule time to meet with Sherman clinical hardware trainerJoselyn. Initially Aminta was open to this; however, she ultimately decided that she wanted to try different prototype engineer HUBER and/or new c-shell for Phonak HUBER. Reportedly hears significantly better when pushing on c-shell. Advised meeting with Joselyn first to see if she has any other suggestions; however, Aminta opted to purchase new EMs first. Impression taken of right ear without incident. Will order Oticon power layout inspector mold to use on demo HUBER. Will request impression to be returned and then order new Phonak c-shell. Quoted $155.00 for each ear mold. Recommendations: Patient will be contacted when materials have arrived. Diagnosis Code(s): Primary Diagnosis: H90.3 Bilateral Sensorineural Hearing Loss Signature: Provider: Jose Tavarez, [facility]
== END 2024-08-09 13:49 | disposition home or self-care (01) ==
LOC: HO.HAP 13:48
PROVIDERS: Visit Provider Internal Medicine
DX: Z13.89 Encounter for screening for other disorder (principal)

== ENCOUNTER 2024-09-20 14:09 | Outpatient (REF) | payer SELFPAY ==
--- OUTSIDE RECORDS SUMMARY | 2024-09-20 15:07 | XMS_ITS ---
Author Organization [facility] Address [address] [place] [address] Care Team Providers Care Theater Teacher Name Role Phone Isidro Arango MD Primary Care Provider Unavaila ble Black, Juanita Unavailable [phone] REASON FOR VISIT BUY Comfort Plus w/Met Pad E / w 11-11.5 Encounters Encounter Location Date Provider Diagnosis [facility] [address] [place] [address] 05/30/2024 Juanita Brunson Plan Of Treatment No Information Progress Notes * Aminta DANGELO LDOB: 1945 (79 yo F)Acc No.[id number]:05/30/2024 Patient:?Bronson Dangelo :1945???Age:79 Y???Sex:Female Address: [place] [address] * true * Date:? Generated for Printi ng/Faafiag/eTransmitting on:?09/20/2024 03:06 PM EST
--- OUTSIDE RECORDS SUMMARY | 2024-09-20 15:07 | XMS_ITS ---
[facility] Address [address] [facility] [place] [address] Care Team Providers Care Radio Frequency Technician Name Role Phone Isidro Arango MD Primary Care Provider Unavaila mia Black, Juanita Unavailable [phone] Allergies Allergen (clinical drug ingredient) Drug/Non Drug Allergy documented on EMR Reaction Allergy Type Onset Date Status cefaclor ceclor (uncoded) Unknown Allergy Act igor Ceftin Unknown Drug Allergy Active clindamycin Clindamycin HCl rash Drug Allergy Active hydrochlorothiazide hydroCHLOROthiazide cramps Drug Aller gy Active Keflex Unknown Drug Allergy Active Results Component Value Reference Range Notes X ray : Foot, left 3V Reviewed date:05/30/2024 12:35:32 PM Interpretation:See Examination above Performing Lab: Notes/Report: See Examination above X ray : Foot, right 3V Reviewed date:05/30/2024 12:35:22 PM Interpretation:See Examination above Performing Lab: Notes/Report: See Examination above REASON FOR VISIT pcp-05/2024, Heel pain Medications Medication SIG (Take, Route, Frequency, Duration) Notes Start Date End Date Status Atorvastatin Calcium 20 MG 1 tablet Oral ly Once a day for 30 days Active Atenolol 25 MG 1 tablet Orally Once a day for 30 days Active Letrozole Active PriLOSEC 20 MG 1 capsule Orally Onc e a day for 30 day(s) Not-Taking Antivert 12.5 MG 2 tablets Orally Three times a day for 30 day(s) Active Meclizine HCl 25 MG 1 tablet as needed Orally every 12 hrs Active Vwcacqxhko-CESI-Npxnkkem 50-325-40 MG 1 capsule as needed Orally every 4 hrs Active Cholecalciferol 50 MCG (1999 UT) 1 tablet Orally Once a day Active Letrozole 2.5 MG 1 tablet Orally Once a day Active LORazepam 0.5 MG 1 tablet at bedtime as needed Orally Once a day Active Omeprazole 20 MG 1 capsule 1/2 to 1 hour before morning meal Orally Once a day Active PreserVision AREDS A ctive Social History Tobacco Use: Social History Observation Description Date Details (start date - stop date) Never Smoker NA - NA Tobacco Use/Smoking Question Answer Notes Are you a: nonsmoker Additional Findings: Tobacco Non-User Current no n-smoker Alcohol Screen Question Answer Notes Did you have a drink containing alcohol in the p ast year? No Points 0 Interpretation Negative Tobacco use other than smoking: Question Answer Notes Are you an other tobacco user? 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) Plantar fasciitis, bilateral (M72.2) Active confirmed Vital Signs Height 5 ft 8 in in 05/30/2024 Weight 180 lbs 05/30/2024 BMI 27.37 kg/m2 05/30/2024 Encounters Encounter Location Date Provider Diagnosis [facility] [place] [address] [place] [address] 05/30/2024 Juanita Black Pain in right foot M79.671 ; Plantar fasciitis, bilateral M72.2 ; Calcaneal spur, right foot M77.31 ; Other myositis of right foot M60.871 ; Bursitis of right foot M77.51 ; Pain in left foot M79.672 ; Calcaneal spur, left foot M77.32 ; Other myositis of left foot M60.872 ; Bursitis of left foot M77.52 and Acute pain of left knee M25.562 Assessments Encounter Date Diagnosis (ICD Code) Assessment Notes Treatment Notes Treatment Clinical Notes Section Notes 05/30/2024 Pain in right foot (ICD-10 - M79.671) 05/30/2024 Plantar fasciitis, bilateral (ICD-10 - M72.2) Patient Educated with: HEEL CORD STRETCHES.pdf (HEEL CORD STRETCHES.pdf) Patient Educated with: RICE THERAPY.pdf (RICE THERAPY.pdf) 05/30/2024 Calcaneal spur, right foot (ICD-10 - M77.31) 05/30/2024 Other myositis of right foot (ICD-10 - M60.871) 05/30/2024 Bursitis of right foot (ICD-10 - M77.51) 05/30/2024 Pain in left foot (ICD-10 - M79.672) 05/30/2024 Calcaneal spur, left foot (ICD-10 - M77.32) 05/30/2024 Other myositis of left foot (ICD-10 - M60.872) 05/30/2024 Bursitis of left foot (ICD-10 - M77.52) 05/30/2024 Acute pain of left knee (ICD-10 - M25.562) Plan Of Treatment Treatment Notes Assessment Notes Plantar fasciitis, bilateral Patient Edu cated with: HEEL CORD STRETCHES.pdf (HEEL CORD STRETCHES.pdf) Patient Educated with: RICE THERAPY.pdf (RICE THERAPY.pdf) Next Appt Details Follow Up: 3-4 Weeks, Reason : Progress Notes * Aminta DANGELO LDOB: 1945 (79 yo F)Acc No.[id number]:05/30/2024 Progress Notes Patient:?Bronson Dangelo L Provider:?Juanita Brunson DPM :1945???Age:79 Y???Sex:Female D ate:05/30/2024 Address: [address] [place], [id number] Pcp:Isidro Arango MD Subjective: * Chief Complaints: * ???Pcp-05/2024Heel pain * HPI: ???Heel pain:?Nature:?tenderness, sharp pain, stiffness.?Location:?Proximal plantar aspect of Heel , B/L and left knee.?Duration:?, several months.?Course:?worse.?Aggravated:?standing, walking, walking first thing in the morning/after rest.?Treatments:?rest/alter normal daily activity, OTC that are old.? * ROS:?General/Constitutional:?Nausea?denies.?Vomiting?denies.?Hunger Thirst?denies.?Loss appetite?denies.?Chills?denies.?Fatigue?denies.?Fever?denies.?Night Sweats?denies.?Unexplained weight loss?denies.?Unexplained weight gain?denies.?HEENTM:?Dentures?denies.?Dizziness?denies.?Glasses/contacts?admits.?Retinopathy?de nies.?Blurred/double vision?denies.?TMJ?denies.?Discharge/drainage?denies.?Implants?denies.?Sore throat?denies.?Dental implants?denies.?Hard of hearing ?admits.?Difficulty chewing/swallowing/speaking?denies.?Nose bleeds?denies.?Sore mouth?denies.?Respiratory:?On Oxygen?denies.?Pneumonia/pleurisy?denies.?Bronchitis?denies.?Emphysema?denies.?C oughing?denies.?Cough blood?denies.?Shortness of breath?denies.?Wheezing?denies.?Cardiovascular:?Pacemaker?denies.?MVP?denies.?WPW?denies.?CHF?denies.?Heart attack?denies.?Septal defect?denies.?Rapid beat?denies.?Chest pain ?denies.?Atrial Fib.?denies.?Murmur/Palpitations?denies.?Gastrointestinal:?Hemorrhoids?denies.?Stomach/Abdominal pain?denies.?Dark blood stool?denies.?Irritable bowel ?admits.?Constipation?admits.?Diarrhea?denies.?Hematology:?Swelling?denies.?Clots?denies.?Varicose Veins?denies.?Bruising?denies.?Bleeding problem?denies.?Genitourinary:?Blood urine?denies.?Frequent/Painfu/urination/bladder control?denies.?Kidney stones?denies.?Infection (UTI)?denies.?Nephropathy?denies.?sex trans dis (STD)?denies.?Prostate?denies.?Musculoskeletal:?Hammertoes?denies.?Bunions?denies.?Back Pain?admits.?Muscle Cramps/ Resting?denies.?Muscle cramps / walking?admits.?Generalized aches and pains?admits.?Weakness?denies.?Integ.:?Khan?denies.?Scars?denies.?Corns/calluses?admits.?Ingrown nails?denies.?Painful nails?admits.?Open Sores?denies.?Rashes?denies.?Neurologic:?Difficulty sleeping?denies.?Brain disorder?denies.?Numbness?denies.?Balance trouble?denies.?Confusion?denies.?Fainting/blackouts?denies.?Tingling?denies.?Tr emors?denies.? * Medical History:? * Surgical History:?ovarian nelson rgery * Hospitalization/Major Diagno stic Procedure:?er miss stepped off a ladder 03/2024 * Family History:?Mother: dece ased, arthritis, diabetes, hypertension, stroke, diagnosed with Diabetic - NIDDM, Unspecified essential hypertension, Unspecified cerebral artery occlusion with cerebral infarction, Other malignant neoplasm of unspecified site.?Father: , cancer, heart attack, diagnosed with Unspecified heart disease.?Paternal Grand Father: cancer.?Siblings: diagnosed with Unspecified cerebral artery occlusion with cerebral infarction.? * Social History:?Tobacco Use:?Tobacco Use/Smoking?Are you a:?nonsmoker ?Additional Findings: Tobacco Non-User?Current non-smoker ?Tobacco use other than smoking?Are you an other tobacco user??No ???Drugs/Alcohol:?Drugs?Have you used drugs other than those for medical reasons in the past 12 months??No ?Alcohol Screen?Did you have a drink containing alcohol in the past year??No ?Points?0 ?Interpretation?Negative ???Miscellaneous:?no Caffeine, none. ?no Children. ?Exercise: yes, walking. ?Marital status: . ?Occupation: Retired. * Medications:?TakingPreserVis ion AREDS Omeprazole 20 MG Capsule Delayed Release 1 capsule 1/2 to 1 hour before morning meal Orally Once a dayMeclizine HCl 25 MG Tablet Chewable 1 tablet as needed Orally every 12 hrsLORazepam 0.5 MG Tablet 1 tablet at bedtime as needed Orally Once a dayLetrozole 2.5 MG Tablet 1 tablet Orally Once a dayCholecalciferol 50 MCG (2000 UT) Tablet 1 tablet Orally Once a dnvIzsojerbxu-QRXC-Vclzurfu 50-325-40 MG Capsule 1 capsule as needed Orally every 4 hrsLetrozole Atenolol 25 MG Tablet 1 tablet Orally Once a dayAtorvastatin Calcium 20 MG Tablet 1 tablet Orally Once a dayAntivert 12.5 MG Tablet 2 tablets Orally Three times a dayTaking PreserVision AREDS Taking Omeprazole 20 MG Capsule Delayed Release 1 capsule 1/2 to 1 hour before morning meal Orally Once a dayTaking Meclizine HCl 25 MG Tablet Chewable 1 tablet as needed Orally every 12 hrsTaking LORazepam 0.5 MG Tablet 1 tablet at bedtime as needed Orally Once a dayTaking Letrozole 2.5 MG Tablet 1 tablet Orally Once a dayTaking Cholecalciferol 50 MCG (2000 UT) Tablet 1 tablet Orally Once a dayTaking Ghtlmfgpme-OOFY-Jwtecrhf 50-325-40 MG Capsule 1 capsule as needed Orally every 4 hrsTaking Letrozole Taking Atenolol 25 MG Tablet 1 tablet Orally Once a dayTaking Atorvastatin Calcium 20 MG Tablet 1 tablet Orally Once a dayTaking Antivert 12.5 MG Tablet 2 tablets Orally Three times a dayNot-Taking/PRNPriLOSEC 20 MG Capsule Delayed Release 1 capsule Orally Once a dayMedication List reviewed and reconciled with the patientNot-Taking/PRN PriLOSEC 20 MG Capsule Delayed Release 1 capsule Orally Once a dayMedication List reviewed and reconciled with the patient * Allergies:?KeflexCeftinClind amycin HCl: rashceclorhydroCHLOROthiazide: crampsyes[Allergies Verified] Objective: * Vitals:?Ht:5 ft 8 in, Wt:180 , BMI:27.37, Shoe size: 11. * Examination: ???General Examination: ?GENERAL APPEARANCE:?alert, well hydrated, in no distress , good attention to hygiene.?ORIENTED:?person,place, and time.?Neurological: ?SENSORY:?neurological exam is normal.?TINEL'S COMPRESSION:?negative tarsal tunnel, oleg pedis, and medial calcaneal nerves b/l.?BABINSKI REFLEX:?absent.?Vascular: ?DP PULSES(B):?, 2/4, B/L.?PT PULSES(B):?, 2/4, B/L.?CAPILLARY FILL TIME:?3 secs. per digit, b/l.?TROPHIC CONDITION-TEXTURE/ELASTICITY/TURGOR/HAIR GROWTH(B):?absent.?TEMPERTURE GRADIENT(C):?warm to cool, proximal to distal.?EDEMA(C):?no edema.?Dermatologic: ?SKIN FINDINGS:?Skin exam reveals normal texture, elasticity, and tugor. There are no masses, no excrescences. The interspaces are clear..?Heel Pain: ?INSPECTION REVEALS:?POP Plantar Fascia med. and central bands, intrinsic musc., infracalcaneal bursa, and med calc tubercle . No pain: posterior/superior heel, achilles bursa/tendon, sinus tarsi, peroneals, or with lateral heel compression; no limited STJ ROM, calor, or eccymosis. Pain on Heel Compression absent, B/L.?Orthopedic: ?MUSCLE STRENGTH:?5/5 all groups in a symmetrical fashion javier.?DIGITAL DEFORMITIES:?Digital contracture, PIPJ, 2-5 B/L, incompl-reducible with WB, or to push-up test, no over, nor underlapping.?FOOTWEAR:?OT were inspected and noted to be severely worn, in poor condition not giving proper support at the present time.?X-Rays - IMAGING REPORT: ?Clinical Indication(s):?Evaluate Biomechanical Deformity.?Views:?3 views of Foot , B/L , AP , LAT , MO.?Findings:?moderate generalized decrease in bone density , positive infra-calcaneal exostosis , positive retro-calcaneal exostosis.?Digits:?show asymmetrical joint space narrowing at the PIPJ consistent with clinical finding of hammertoe deformity, show enlarged/hypertrophied phalangeal head(s) consistent for clinical finding of hammertoe deformity.?HAV:?there is asymmetrical narrowing of the 1st MPJ joint space.? * Physical Examination:?L2999 Supplies:?Comfort Plus inserts with Metatarsal pads?size 11.? Assessment: * Assessment: 1.?Pain in right foot - M79. 671?2.?Calcaneal spur, right foot - M77.31?3.?Plantar fasciitis, bilateral - M72.2 (Primary), Acute problem, Complicated w/ Multiple Tx Options(4),Dx New problem, Prognosis Uncertain (4)?4.?Other myositis of right foot - M60.871?5.?Bursitis of right foot - M77.51?6.?Pain in left foot - M79.672?7.?Calcaneal spur, left foot - M77.32?8.?Other myositis of left foot - M60.872?9.?Bursitis of left foot - M77.52?10.?Acute pain of left knee - M25.562? Plan: * Treatment: 2.?Pain in right foot?Imaging: X ray : Foot, right 3V?See Examination above 3.?Pain in left foot?Imaging: X ray : Foot, left 3V?See Examination above * Procedure Codes:?54501 X-RAY EXAM OF RIGHT FOOT 3V, Modifiers: 26 , [id number] X- RAY EXAM OF LEFT FOOT 3V, Modifiers: 26 , LT * Preventive Medicine:? ??Counseling:?Discussion:?-04: Office or other outpatient visit for the evaluation and management of a new patient, which required a medically appropriate history and/or examination and MODERATE level of DECISION MAKING for: 1 OR MORE CHRONIC PROBLEM(S) THATS WORSENING, 2 STABLE CHRONIC PROBLEMS, A NEWLY DIAGNOSED PROBLEM WITH UNCERTAIN PROGNOSIS, AN ACUTE COMPLICATED INJURY WITH MULTIPLE TREATMENT OPTIONS, OR AN ACUTE PROBLEM WITH ACCOMPANYING SYSTEMIC SYMPTOMS, THAT POSE(S) A MODERATE RISK OF MORBIDITY. THIS CONDITION MAY ALSO INCLUDE RX DRUG MANAGEMENT, OR A DECISON FOR MINOR SURGERY. The visit on the day of the encounter encompassed interpreting the data and educating the patient as to the nature of their condition, treatment options available according to their individual PMH, meds, allergies, and overall health/living conditions, as well as any potential risks or complications that may occur from a failure to adhere to, and participate in, the recommended course of therapy. The discussion included a complete verbal, and/or written explanation of the examination results, any x-rays taken, the proposed diagnosis, and outline of the treatment plan. A schedule for future care needs was also explained. The patient verbalized an understanding of the instructions at this time and agreed to be an active participant in their treatment. If the patient should think of any questions or concerns after the visit, I have encouraged the patient to call the office.?BioMech.:?Discussed and reviewed the X-rays with the patient. We discussed how the findings relate to the patients symptoms/complaints. Answered any and all questions., I discussed the Pts foot biomechanics with them and how it relates to their problem, Pt is fitted for an OC orthotic to help address their issues., The patient and I reviewed the types of shoes they should be wearing; my recommendation includes obtaining a shoe with a good firm sole, plenty of toe room, and proper arch support.?Heel pain:?FASCIITIS: I explained to the patient the possible etiologies of Plantar Fasciitis including foot type/shoegear/activity level/exercise routine and the risks/benefits of all the different treatment options for heel pain including: No treatment at all, Rest, Ice, NSAIDs(only if well tolerated after meals), New/supportive Shoegear, Strappings and Tapings, Stretching exercises, Deep Tissue Massage, Heel cups/cushions, Arch support/shoe inserts, Custom orthoses, Topical analgesics including Aspercream/Voltaren gel, Night splint AFO for am stiffness, Cortisone injection therapy, Cast boot with crutches/cane/or walker for assisted ambulation, Physical Therapy, EPAT/ESWT, Interfil injection therapy, as well as surgical [place]/Endoscopic Fasciitomy surgical procedures if needed. Recommendations were made to limit barefoot walking, eliminate wearing nonsupportive shoegear (i.e. flip-flops or sandals, or a shoe with an easily bendable, foldable, or twistable sole) and wear shoegear with a good solid sole, a supportive arch, and plenty of room for an insert/orthotic if necessary. If wearing sandals was required by the patient, we recommended orthopedic sandals such as Orthoheel or Birkenstock even while in the home. If the patient wore heels in the past, we recommended they continue, but eliminate the use of flats. The advantages and disadvantages of each option were discussed and the patients questions re: types of shoegear, custom vs prefabricated inserts, activity level, PO vs Topical medications (and their respective potential complications/drug interactions/side effects), and consistency in home treatment regimens for optimal success were answered to their satisfaction. Literature detailing plantar fasciitis and the various treatment options were dispensed and reviewed.?Orthotic Dispensing:?The OTC inserts are properly fitted to the patient's feet in both weight-bearing and non-weight bearing attitudes. The patient was instructed to gradually increase the amount of time they are wearing the orthoses, starting with one hour the first day and thereon progressively increasing the amount of time used until they are comfortable to be worn all day and with all activities. They were asked to call the office if any signs of skin irritation were noted including redness, blistering or callous formation. The patient verbally indicated a full understanding of all the above information.? * Follow Up:?3-4 Weeks * Images: * Sign off status: Completed true * Provider:?Juanita Brunson DPM Date:?2023 Generated for Alan ferguson/Talat/Rosalinda on:?09/20/2024 03:06 PM EST History and Physical Notes * HPI (History of Present Illness) Category Sub-Category Detail Notes Category Not es Heel pain Duration: , several months Nature: tenderness, sharp pa in, stiffness Location: Proximal plantar asp ect of Heel , B/L and left knee Aggravated: standing, walking, w alking first thing in the morning/after rest Course: worse Treatments: rest/alter normal da denia activity, OTC that are old Physical Examination Category Sub-Category Detail Notes Section Note s L2999 Supplies Comfort Plus inserts with Metatarsal pa ds size 11 Examination Category Sub-Category Detail Notes Category Not es Heel Pain INSPECTION REVEALS: POP Plantar Fascia med. and central bands, intrinsic musc., infracalcaneal bursa, and med calc tubercle . No pain: posterior/superior heel, achilles bursa/tendon, sinus tarsi, peroneals, or with lateral heel compression; no limited STJ ROM, calor, or eccymosis. Pain on Heel Compression absent, B/L Neurological SENSORY: neurological exam is normal BABINSKI REFLEX: absent TINEL'S COMPRESSION: negative tarsal salazar lanny, oleg pedis, and medial calcaneal nerves b/l Dermatologic SKIN FINDINGS: Skin exam reveal s normal texture, elasticity, and tugor. There are no masses, no excrescences. The interspaces are clear. Orthopedic FOOTWEAR: OT were inspecte d and noted to be severely worn, in poor condition not giving proper support at the present time DIGITAL DEFORMITIES: Digital contracture , PIPJ, 2-5 B/L, incompl-reducible with WB, or to push-up test, no over, nor underlapping MUSCLE STRENGTH: 5/5 all groups in a symmetrical fashion javier General Examination GENERAL APPEARANCE: alert, w ell hydrated, in no distress , good attention to hygiene ORIENTED: person,place, and ti me Vascular DP PULSES (B): , 2/4, B/L PT PULSES (B): , 2/4, B/L CAPILLARY FILL TIME: 3 secs. per digit, b/l TEMPERTURE GRADIENT (C): warm to cool, p roximal to distal TROPHIC CONDITION-TEXTURE/EL ASTICITY/TURGOR/HAIR GROWTH (B): absent EDEMA (C): no edema X-Rays - IMAGING REPORT Findings: moderate generalized decrease in bone density , positive infra-calcaneal exostosis , positive retro-calcaneal exostosis Digits: show asymmetrical jose int space narrowing at the PIPJ consistent with clinical finding of hammertoe deformity, show enlarged/hypertrophied phalangeal head(s) consistent for clinical finding of hammertoe deformity HAV: there is asymmetrica l narrowing of the 1st MPJ joint space Views: 3 views of Foot , B/ L , AP , LAT , MO Clinical Indication(s): Evaluate Biomech anical Deformity
--- NOTE | 2024-09-21 08:20 | MHC.AU.HA3 ---
Hearing Instrument Follow-Up- Binaural Date of Visit: 09/20/24 Right Ear: Make, Model, Color, Serial Number: Gailak [place] [id number] SN: [id number] Color: Champagne Nurses' Aide Repair Warranty: 09/17/2025 Nurses' Aide Loss and Damage Warranty: 09/09/2025 [facility] Service Plan: 07/02/2025 Battery Size: 13 Modular Set Crew Member/Slim Tube: 2 UP Earmold/Dome/CShell/SlimTip:cShell w/ canal lock SN: [id number] Marya: 12/30/2024 Type of Wax Guard: CeruStop Dispensed By: [facility] Date of Fittin07/02/2022 Left Ear: Make, Model, Color, Serial Number: Phonak Juan Davideo [id number] SN: [id number] Color: Champagne Nurses' Aide Repair Warranty: 09/17/2025 Nurses' Aide Loss and Damage Warranty: 09/09/2025 [facility] Service Plan: 07/02/2025 Battery Size: 13 Modular Set Crew Member/Slim Tube: 2 UP Earmold/Dome/CShell/SlimTip: cShell w/ canal lock SN: [id number] Marya: 09/11/2022 Type of Wax Guard: CeruStop Dispensed By: [facility] Date of Fittin07/02/2022 Follow-Up Summary: Same issues with sound quality, no improvements - see previous note. Fit new Phonak c-shell. Reportedly felt more secure/tighter, noticed improvement in sound quality. No programming adjustments at this time. Also fit new Oticon EM with Sprout 1 miniRITE-T, set to initial fit settings with increased noise management. Initial thought was that Oticon was too tinny. Prefers the mellow sound quality of the Phonak HUBER. However, understands she needs time to acclimate; planning to wear Oticon for two weeks, then Phonak for two weeks. Recommendations: An additional follow-up was scheduled to monitor progress. Diagnosis Code(s): Primary Diagnosis: H90.3 Bilateral Sensorineural Hearing Loss Signature: Provider: Jose Tavarez, [facility]
== END 2024-09-20 14:10 | disposition home or self-care (01) ==
LOC: HO.HAP 14:09
PROVIDERS: Visit Provider Internal Medicine
DX: Z46.1 Encounter for fitting and adjustment of hearing aid (principal); H90.3 Sensorineural hearing loss, bilateral
CPT/HCPCS: V5264

== ENCOUNTER 2024-11-03 12:35 | Outpatient (REF) | payer SELFPAY ==
--- OUTSIDE RECORDS SUMMARY | 2024-11-03 15:50 | XMS_ITS ---
Author Organization [facility] Address [address] [place] [address] Care Team Providers Care Barback Name Role Phone Isidro Arango MD Primary Care Provider Unavaila ble Black, Juanita Unavailable [phone] REASON FOR VISIT BUY Comfort Plus w/Met Pad E / w 11-11.5 Encounters Encounter Location Date Provider Diagnosis [facility] [address] [place] [address] 05/30/2024 Juanita Brunson Plan Of Treatment No Information Progress Notes * Aminta DANGELO LDOB: 1945 (79 yo F)Acc No.[id number]:05/30/2024 Patient:?Bronson Dangelo :1945???Age:79 Y???Sex:Female Address: [place] [address] * true * Date:? Generated for Printi ng/Faafiag/eTransmitting on:?11/03/2024 03:49 PM EDT
--- OUTSIDE RECORDS SUMMARY | 2024-11-03 15:50 | XMS_ITS ---
Author Organization [facility] Address [address] [facility] [place] [address] Care Team Providers Care Eye Specialist Name Role Phone Isidro Arango MD Primary Care Provider Unavaila mia Black, Juanita Unavailable [phone] Allergies Allergen (clinical drug ingredient) Drug/Non Drug [...] as needed Orally every 12 hrs Active Gipydspdix-ZBKS-Lbvutkpt 50-325-40 MG 1 capsule as needed Orally [...] Status Risk Notes Problem Plantar fascial fibromatosis (13429320) Plantar fasciitis, bilateral (M72.2) Active confirmed Vital Signs Height 5 ft 8 in in 05/30/2024 Weight 180 lbs 05/30/2024 BMI 27.37 kg/m2 05/30/2024 Encounters Encounter Location Date Provider Diagnosis [facility] [place] [address] [place] [address] 05/30/2024 Juanita Black Pain in right foot [...] Aminta DANGELO LDOB: 1945 (79 yo F)Acc No.[id number]:05/30/2024 Progress Notes Patient:?Bronson Dangelo L Provider:?Juanita Brunson DPM :1945???Age:79 Y???Sex:Female D ate:05/30/2024 Address: [address] [facility], [place] Pcp:Isidro Arango MD Subjective: * Chief Complaints: [...] UT) Tablet 1 tablet Orally Once a tqrAywyziliyr-SIIM-Rhxuzzns 50-325-40 MG Capsule 1 capsule as needed [...] Tablet 1 tablet Orally Once a dayTaking Ltzirtbvsb-JOJY-Vkmxxflw 50-325-40 MG Capsule 1 capsule as needed [...] Foot, left 3V?See Examination above * Procedure Codes:?27654 X-RAY EXAM OF RIGHT FOOT 3V, Modifiers: 26 , [id number] X- RAY EXAM OF LEFT FOOT 3V, [...] Interfil injection therapy, as well as surgical [place]/Endoscopic Fasciitomy surgical procedures if needed. Recommendations were [...] Brunson DPM Date:?2023 Generated for Alan ferguson/Talat/Rosalinda on:?11/03/2024 03:50 PM EDT History and Physical Notes * HPI (History [...]
--- OUTSIDE RECORDS SUMMARY | 2024-11-03 15:50 | XMS_ITS | Patient Health Record ---
Author Organization [facility] Address [address] [place] [address] Care Team Providers Care Support Architect Name Role Phone Isidro Arango MD Primary Care Provider Unavaila mia Brunson Juanita Unavailable [phone] Allergies Allergen (clinical drug ingredient) Drug/Non Drug [...] above Performing Lab: Notes/Report: See Examination above Reason For Referral No Information Medications Medication SIG (Take, Route, Frequency, Duration) Notes Start Date End Date Status Atorvastatin Calcium 20 MG 1 tablet Oral ly Once a day for 30 days Active Atenolol 25 MG 1 tablet Orally Once a day for 30 days Active Letrozole Active Meclizine HCl 25 MG 1 tablet as needed Orally every 12 hrs Active Omeprazole 20 MG 1 capsule 1/2 to 1 hour before morning meal Orally Once a day Active PreserVision AREDS A ctive PriLOSEC 20 MG 1 capsule Orally Onc e a day for 30 day(s) Not-Taking Antivert 12.5 MG 2 tablets Orally Three times a day for 30 day(s) Active Qthpjnudvy-QHXD-Kzjbzwgs 50-325-40 MG 1 capsule as needed Orally every 4 hrs Active Cholecalciferol 50 MCG (1999 UT) 1 tablet Orally Once a day Active Letrozole 2.5 MG 1 tablet Orally Once a day Active LORazepam 0.5 MG 1 tablet at bedtime as needed Orally Once a day Active Social History Tobacco Use: Social History Observation Description Date Details (start date - stop date) Never Smoker NA - NA Tobacco Use/Smoking Question Answer Notes Are you a: nonsmoker Additional Findings: Tobacco Non-User Current no n-smoker Tobacco use other than smoking: Question Answer Notes Are you an other tobacco user? No Problems Problem Type SNOMED Code ICD Code Onset Dates Problem Status W/U Status Risk Notes Problem Plantar fascial fibromatosis (75534920) Plantar fasciitis, bilateral (M72.2) Active confirmed Vital Signs Height 5 ft 8 in in 05/30/2024 Weight 180 lbs 05/30/2024 BMI 27.37 kg/m2 05/30/2024 Encounters Encounter Location Date Provider Diagnosis [facility] [address] 05/30/2024 Juanita Black Pain in right foot [...] and Acute [facility] left [facility] M25.562 [facility] [address] 05/30/2024 Juanita Black Assessments Encounter Date Diagnosis (ICD Code) Assessment Notes Treatment Notes Treatment Clinical Notes Section Notes 05/30/2024 Pain in right foot (ICD-10 - M79.671) 05/30/2024 Calcaneal spur, right foot (ICD-10 - M77.31) 05/30/2024 Plantar fasciitis, bilateral (ICD-10 - M72.2) Patient Educated with: HEEL CORD STRETCHES.pdf (HEEL CORD STRETCHES.pdf) Patient Educated with: RICE THERAPY.pdf (RICE THERAPY.pdf) 05/30/2024 Other myositis of right foot (ICD-10 - M60.871) 05/30/2024 Bursitis of right foot (ICD-10 - M77.51) 05/30/2024 Pain in left foot (ICD-10 - M79.672) 05/30/2024 Calcaneal spur, left foot (ICD-10 - M77.32) 05/30/2024 Other myositis of left foot (ICD-10 - M60.872) 05/30/2024 Bursitis of left foot (ICD-10 - M77.52) 05/30/2024 Acute pain of left knee (ICD-10 - M25.562) Plan Of Treatment No Information Insurance Providers Payer Name Payer Address Payer Phone Subscriber Number Group Number Insured Name Patient Relationship to Insured Coverage Start Date Coverage End Date [employer] [place] Medicare [employer]vantage One [facility] [address] [place] [address] [phone] [id number] Aminta Foote Self - patient is the insured Medical (General) History Medical History History ICD Code sinus conditions reflux menieres disease measles chicken pox hypertension headaches/migraines back, hip, knee pain Arthritis Anxiety Cancer Cataracts Headaches/Migraines Macular degeneration Transfusions hard of hearing Surgical History Surgery Date(Month/Year) ovarian surgery Hospitalization History Reason Date(Month/Year) er stepped off a ladder 03/2024
--- NOTE | 2024-11-09 07:43 | MHC.AU.HA3 ---
Hearing Instrument Follow-Up- Binaural Date of Visit: 11/03/24 Right Ear: Make, Model, Color, Serial Number: Sherman Isbello [id number] SN: [id number] Color: Joaquínagne Photo Checker And Assembler Repair Warranty: 09/17/2025 Photo Checker And Assembler Loss and Damage Warranty: 09/09/2025 [facility] Service Plan: 07/02/2025 Battery Size: 13 Nursing Surgical Services Director/Slim Tube: 2 UP Earmold/Dome/CShell/SlimTip:cShell w/ canal lock SN: [id number] Marya: 12/30/2024 Type of Wax Guard: CeruStop Dispensed By: [facility] Date of Fittin07/02/2022 Left Ear: Make, Model, Color, Serial Number: Sherman Isbello [id number] SN: [id number] Color: Joaquínagne Photo Checker And Assembler Repair Warranty: 09/17/2025 Photo Checker And Assembler Loss and Damage Warranty: 09/09/2025 [facility] Service Plan: 07/02/2025 Battery Size: 13 Nursing Surgical Services Director/Slim Tube: 2 UP Earmold/Dome/CShell/SlimTip: cShell w/ canal lock SN: [id number] Marya: 09/11/2022 Type of Wax Guard: CeruStop Dispensed By: [facility] Date of Fittin07/02/2022 Follow-Up Summary: New Phonak c-shell did not resolve sound quality issues - still same complaints. Did not like Oticon sound quality, too loud, tried turning down but then could not hear, did not like placement of rocker switch; hollow, echo, scratchy voices; background noise horrendous; overall, not impressed with Oticon. Returned Cheryl hinojosa in 'EM Drawer' if ever needed if future. Discussed multiple adjustments over past couple of years with no perceived improvement. Still does not think sound quality issues are related to hearing/poor discrimination or BiCros vs bilateral HAs, as she can hear much better with old Phonak HUBER and will sometimes get moments of perfect clarity with new Phonak HUBER. Still no interest in CI. Wants new HUBER to sound like old HUBER. Aminta agreeable to scheduling an appointment with Joselyn, Clinical [place] at [employer] for one last attempt at programming new Phonak HUBER - scheduled 11/16/2024. In the meantime, Aminta plans to use her old HUBER; however, poultry pinner broke. Aminta had an old EM and poultry pinner that was transferred to the HUBER. Recommendations: An additional follow-up was scheduled to monitor progress. Diagnosis Code(s): Primary Diagnosis: H90.3 Bilateral Sensorineural Hearing Loss Signature: Provider: Jose Tavarez, CCC-A
== END 2024-11-03 12:36 | disposition home or self-care (01) ==
LOC: HO.HAP 12:35
PROVIDERS: Visit Provider Internal Medicine
DX: Z13.89 Encounter for screening for other disorder (principal)

== ENCOUNTER 2024-11-17 10:07 | Outpatient (REF) | payer MEDICARE, SELFPAY ==
[2024-11-17 13:08] LABS: MANUAL DIFF FLAG NO
[2024-11-17 13:25] LABS: Basophils Percent Auto 0.6 % (0-2); Eosinophils Absolute Auto 0.1 X10*3/uL (0.0-0.4); Eosinophils Percent Auto 0.9 % (0-4); Hematocrit 41.7 % (37.0-47.0); Hemoglobin 13.7 g/dl (12.0-16.0); Imm Gran Abs Auto 0.01 X10*3/uL (0.00-0.03); Imm Gran Pct Auto 0.2 % (0.0-0.4); Lymphocytes Absolute Auto 1.3 X10*3/uL (1.2-4.9); Lymphocytes Percent Auto 23.7 % (20-40); Mean Corpuscular HGB Conc 32.9 g/dl (31.0-35.0); Mean Corpuscular Hemoglobin 31.3 pg (27.0-33.0); Mean Corpuscular Volume 95.2 fL (80.0-98.0); Mean Platelet Volume 12.7 fL (9.4-12.3); Monocytes Absolute Auto 0.5 X10*3/uL (0.1-1.2); Monocytes Percent Auto 8.9 % (2-11); Neutrophils Absolute Auto 3.5 x10*3/uL (2.0-8.3); Neutrophils Percent Auto 65.7 % (45-73); Platelet Count 148 X10*3/uL (160-400); Red Blood Count 4.38 X10*6/uL (4.20-5.50); Red Cell Distribution Width 13.4 % (11.0-16.0); White Blood Count 5.3 X10*3/uL (4.8-10.8)
[2024-11-17 13:39] LABS: Estimated Average Glucose 111 mg/dL; Hemoglobin A1c % 5.5 % (<6.0); Total Hemoglobin (HGBA1C) 3767.9167 umol/L
[2024-11-17 14:00] LABS: Alanine Aminotransferase 11 U/L (0-31); Albumin Level 3.8 g/dL (3.5-5.0); Anion Gap 11 (12-20); Aspartate Amino Transferase 20 U/L (5-31); Bilirubin Total 0.6 mg/dL (0.0-1.0); Blood Urea Nitrogen 13 mg/dL (9-16); Calcium 9.4 mg/dL (8.4-10.2); Carbon Dioxide 27 mmol/L (22-29); Chloride 109 mmol/L (96-108); Cholesterol 194 mg/dL (<200); Estimated Glomerular Filt Rate > 60; Glucose Random 93 mg/dL (60-115); HDL Cholesterol 76 mg/dL (>40); LDL Cholesterol Calculated 97 mg/dL (<100); Potassium 4.2 mmol/L (3.3-5.1); Sodium 143 mmol/L (135-145); Total Protein 6.5 g/dL (6.5-8.0); Triglycerides 108 mg/dL (<150)
[2024-11-17 14:23] LABS: Alkaline Phosphatase 112 U/L (39-117)
[2024-11-17 14:27] LABS: Thyroid Stimulating Hormone 1.07 uIU/mL (0.32-4.0)
== END 2024-11-17 10:08 | disposition home or self-care (01) ==
LOC: HO.HMGCLDS 10:07
PROVIDERS: PCP Internal Medicine; Visit Provider Internal Medicine
DX: E78.00 Pure hypercholesterolemia, unspecified (principal); I10 Essential (primary) hypertension; R73.01 Impaired fasting glucose
CPT/HCPCS: 36415; 80053; 80061; 83036; 84443; 85025

== ENCOUNTER 2024-12-07 13:00 | Outpatient (REF) | payer SELFPAY ==
--- OUTSIDE RECORDS SUMMARY | 2024-12-07 15:25 | XMS_ITS ---
Author Organization [facility] Address [address] [place] [address] Care Team Providers Care Athletic Equipment Manager Name Role Phone Isidro Arango MD Primary Care Provider Unavaila ble Black, Juanita Unavailable [phone] REASON FOR VISIT BUY Comfort Plus w/Met Pad E / w 11-11.5 Encounters Encounter Location Date Provider Diagnosis [facility] [address] [place] [address] 05/30/2024 Juanita Brunson Plan Of Treatment No Information Progress Notes * Aminta DANGELO LDOB: 1945 (79 yo F)Acc No.[id number]:05/30/2024 Patient:?Bronson Dangelo :1945???Age:79 Y???Sex:Female Address: [place] [address] * true * Date:? Generated for Printi ng/Faafiag/eTransmitting on:?12/07/2024 03:24 PM EDT
--- OUTSIDE RECORDS SUMMARY | 2024-12-07 15:25 | XMS_ITS ---
Author Organization [facility] Address [address] [facility] [place] [address] Care Team Providers Care Betting Clerk Name Role Phone Isidro Arango MD Primary Care Provider Unavaila mia Black, Juanita Unavailable [phone] Allergies Allergen (clinical drug ingredient) Drug/Non Drug [...] as needed Orally every 12 hrs Active Otwinoklhc-YLQS-Jgqqdcdc 50-325-40 MG 1 capsule as needed Orally [...] Status Risk Notes Problem Plantar fascial fibromatosis (89253217) Plantar fasciitis, bilateral (M72.2) Active confirmed Vital Signs Height 5 ft 8 in in 05/30/2024 Weight 180 lbs 05/30/2024 BMI 27.37 kg/m2 05/30/2024 Encounters Encounter Location Date Provider Diagnosis [facility] [place] [address] [place] [address] 05/30/2024 Juanita Black Pain in right foot [...] Aminta DANGELO LDOB: 1945 (79 yo F)Acc No.[id number]:05/30/2024 Progress Notes Patient:?Bronson Dangelo L Provider:?Juanita Brunson DPM :1945???Age:79 Y???Sex:Female D ate:05/30/2024 Address: [address] [place], [place] Pcp:Isidro Arango MD Subjective: * Chief Complaints: [...] UT) Tablet 1 tablet Orally Once a ogzNlzkwbraql-WPAN-Sjmwgjcd 50-325-40 MG Capsule 1 capsule as needed [...] Tablet 1 tablet Orally Once a dayTaking Uledeqxqdw-MAXS-Bevyrezq 50-325-40 MG Capsule 1 capsule as needed [...] Foot, left 3V?See Examination above * Procedure Codes:?34669 X-RAY EXAM OF RIGHT FOOT 3V, Modifiers: 26 , [id number] X- RAY EXAM OF LEFT FOOT 3V, [...] Interfil injection therapy, as well as surgical [place]/Endoscopic Fasciitomy surgical procedures if needed. Recommendations were [...] Brunson DPM Date:?2023 Generated for Alan ferguson/Talat/Rosalinda on:?12/07/2024 03:25 PM EDT History and Physical Notes * [...] no excrescences. The interspaces are clear. Orthopedic FOOTWEAR EVALUATION: OT were ins pected and noted to be severely worn, in [...]
--- OUTSIDE RECORDS SUMMARY | 2024-12-07 15:25 | XMS_ITS | Patient Health Record ---
Author Organization [facility] Address [address] [place] [address] Care Team Providers Care Hearing Aid Specialist Name Role Phone Isidro Arango MD Primary Care Provider Unavaila mia Brunson Juanita Unavailable [phone] Allergies Allergen (clinical drug ingredient) Drug/Non Drug [...] times a day for 30 day(s) Active Ksngwusfhb-WAOK-Qylbypwc 50-325-40 MG 1 capsule as needed Orally [...] Status Risk Notes Problem Plantar fascial fibromatosis (78716645) Plantar fasciitis, bilateral (M72.2) Active confirmed Vital Signs Height 5 ft 8 in in 05/30/2024 Weight 180 lbs 05/30/2024 BMI 27.37 kg/m2 05/30/2024 Encounters Encounter Location Date Provider Diagnosis [facility] [address] 05/30/2024 Juanita Black Pain in right foot [...] and Acute pain of left knee M25.562 [facility] [address] 05/30/2024 Juanita Black Assessments Encounter Date Diagnosis [...] Date [employer] [place] Medicare Advantage One [facility] [address] [place] [address] [phone] [id number] Aminta Foote Self - patient is the [...]
--- NOTE | 2024-12-08 07:35 | MHC.AU.HA3 ---
Hearing Instrument Follow-Up- Binaural Date of Visit: 12/07/24 Right Ear: Make, Model, Color, Serial Number: Sherman Isbello [id number] SN: [id number] Color: Champagne Carry All Driver Repair Warranty: 09/17/2025 Carry All Driver Loss and Damage Warranty: 09/09/2025 [facility] Service Plan: 07/02/2025 Battery Size: 13 Cage Operator/Slim Tube: 2 UP Earmold/Dome/CShell/SlimTip:cShell w/ canal lock SN: [id number] Marya: 12/30/2024 Type of Wax Guard: CeruStop Dispensed By: [facility] Date of Fittin07/02/2022 Left Ear: Make, Model, Color, Serial Number: Sherman Isbello [id number] SN: [id number] Color: Joaquínagne Carry All Driver Repair Warranty: 09/17/2025 Carry All Driver Loss and Damage Warranty: 09/09/2025 [facility] Service Plan: 07/02/2025 Battery Size: 13 Cage Operator/Slim Tube: 2 UP Earmold/Dome/CShell/SlimTip: cShell w/ canal lock SN: [id number] Marya: 09/11/2022 Type of Wax Guard: CeruStop Dispensed By: [facility] Date of Fittin07/02/2022 Follow-Up Summary: Appointment with Joselyn clinical hearing dog trainer from [facility] to assist with ongoing sound quality issues. Joselyn's initial suggestion was to try AmpCROS; however, Aminta not particularly interested. Set as manual program if Aminta wants to try. Instructed how to change programs. Majority of appointment focused on programming of right HUBER. After multiple unsuccessful adjustments, switched to P person investigator using old SlimTip mold, recalculated settings, adjusted SoundRecover, tried to make settings more similar to old HUBER. Aminta noted better tone, less harsh. Old SlimTip does not fit fully on new person investigator. Joselyn offered to send new SlimTip at no charge. Aminta will use old right HUBER and new left HUBER until new SlimTip arrives. Aminta also noted bluetooth issues again - will readdress at next appointment. Joselyn may join next appointment virtually and/or schedule an in-person follow up after new SlimTip is fit and Aminta has had time to use HUBER with new configuration/settings. *12/08/2024: Email from Joselyn Plutora Gissel # for new EM: [phone] Recommendations: Patient will be contacted when materials have arrived. Diagnosis Code(s): Primary Diagnosis: H90.3 Bilateral Sensorineural Hearing Loss Signature: Provider: Jose Tavarez, CCC-A
== END 2024-12-07 13:01 | disposition home or self-care (01) ==
LOC: HO.HAP 13:00
PROVIDERS: Visit Provider Internal Medicine
DX: Z13.89 Encounter for screening for other disorder (principal)

== ENCOUNTER 2024-12-29 10:16 | Outpatient (REF) | payer SELFPAY ==
--- NOTE | 2024-12-29 11:20 | MHC.AU.HA3 ---
Hearing Instrument Follow-Up- Binaural Date of Visit: 12/29/24 Right Ear: Shlomo, Model, Color, Serial Number: Sherman Olsen [id number] SN: [id number] Color: Joaquínagne Ledger Poster Repair Warranty: 09/17/2025 Ledger Poster Loss and Damage Warranty: 09/09/2025 [facility] Service Plan: 07/02/2025 Battery Size: 13 Corner Trimmer Operator/Slim Tube: 3P Earmold/Dome/CShell/SlimTip:SlimTip w/ canal lock SN: [id number] Marya: 04/14/2025 Type of Wax Guard: CeruStop Dispensed By: [facility] Date of Fittin07/02/2022 Left Ear: Make, Model, Color, Serial Number: Sherman Olsen [id number] SN: [id number] Color: Champagne Ledger Poster Repair Warranty: 09/17/2025 Ledger Poster Loss and Damage Warranty: 09/09/2025 [facility] Service Plan: 07/02/2025 Battery Size: 13 Corner Trimmer Operator/Slim Tube: 2 UP Earmold/Dome/CShell/SlimTip: cShell w/ canal lock SN: [id number] Marya: 09/11/2022 Type of Wax Guard: CeruStop Dispensed By: [facility] Date of Fittin07/02/2022 Follow-Up Summary: Fit new slim tip EM. Ran feedback analyzer. HUBER programmed to settings from previous appointment with Sherman clinical industrial trainerJoselyn. Aminta will try and call if problems arise. Inquired again about a different HUBER, particularly ReSound as she read that ReSound has the best noise management. Advised given severity of hearing loss and poor speech discrimination, not optimistic that a different HUBER will offer what she is looking for. Do not have ReSound demos, would need to be a full HUBER purchase. Aminta will consider for her own peace of mind. Otherwise, she will return, as needed. Recommendations: Patient will call if problems persist. Diagnosis Code(s): Primary Diagnosis: H90.3 Bilateral Sensorineural Hearing Loss Signature: Provider: Jose Tavarez, [facility]
--- OUTSIDE RECORDS SUMMARY | 2024-12-29 11:25 | XMS_ITS ---
Author Organization [facility] Address [address] [place] [address] Care Team Providers Care Proof Operator Name Role Phone Isidro Arango MD Primary Care Provider Unavaila ble Black, Juanita Unavailable [phone] REASON FOR VISIT BUY Comfort Plus w/Met Pad E / w 11-11.5 Encounters Encounter Location Date Provider Diagnosis [facility] [address] [place] [address] 05/30/2024 Juanita Brunson Plan Of Treatment No Information Progress Notes * Aminta DANGELO LDOB: 1945 (79 yo F)Acc No.[id number]:05/30/2024 Patient:?Bronson Dangelo :1945???Age:79 Y???Sex:Female Address: [place] [address] * true * Date:? Generated for Printi ng/Faafiag/eTransmitting on:?12/29/2024 11:24 AM EDT
--- OUTSIDE RECORDS SUMMARY | 2024-12-29 11:25 | XMS_ITS | Patient Health Record ---
Author Organization [facility] Address [address] [place] [address] Care Team Providers Care Sensitometrist Name Role Phone Isidro Arango MD Primary Care Provider Unavaila mia Brunson Juanita Unavailable [phone] Allergies Allergen (clinical drug ingredient) Drug/Non Drug Allergy documented on EMR Reaction Allergy Type Onset Date Status cefaclor ceclor (uncoded) Unknown Allergy Act igor Ceftin Unknown Drug Allergy Active clindamycin Clindamycin HCl rash Drug Allergy Active hydrochlorothiazide hydroCHLOROthiazide cramps Drug Aller gy Active Keflex Unknown Drug Allergy Active Results Component Value Reference Range Notes X ray : Foot, right 3V Reviewed date:05/30/2024 12:35:22 PM Interpretation:See Examination above Performing Lab: Notes/Report: See Examination above X ray : Foot, left 3V Reviewed [...] times a day for 30 day(s) Active Bvatkqnhct-ELVS-Sfjqpstj 50-325-40 MG 1 capsule as needed Orally [...] Status W/U Status Risk Notes Problem Plantar fasciitis, bilateral (M72.2) Active confirmed Vital Signs Height 5 ft 8 in in 05/30/2024 Weight 180 lbs 05/30/2024 BMI 27.37 kg/m2 05/30/2024 Encounters Encounter Location Date Provider Diagnosis [facility] [address] 05/30/2024 Juanita Black Pain in right foot [...] and Acute pain of left knee [facility]25.562 [facility] [address] 05/30/2024 Juanita Black Assessments Encounter Date Diagnosis [...] Date [employer] [place] Medicare Advantage [address] [place] [address] [id number] Aminta Foote Self - patient is the [...]
--- OUTSIDE RECORDS SUMMARY | 2024-12-29 11:25 | XMS_ITS ---
Author Organization [facility] Address [address] [facility] [place] [address] Care Team Providers Care Radiology Administrator Name Role Phone Isidro Arango MD Primary Care Provider Unavaila ble Black, Juanita Unavailable [phone] Allergies Allergen (clinical drug ingredient) Drug/Non Drug [...] as needed Orally every 12 hrs Active Wnvgnulnym-IYQA-Jdvteaiv 50-325-40 MG 1 capsule as needed Orally [...] 05/30/2024 Encounters Encounter Location Date Provider Diagnosis [facility] [place] [address] [place] [address] 05/30/2024 Juanita Black Pain in right foot [...] Aminta DANGELO LDOB: 1945 (79 yo F)Acc No.[id number]:05/30/2024 Progress Notes Patient:?Bronson Dangelo L Provider:?Juanita Brunson DPM :1945???Age:79 Y???Sex:Female D ate:05/30/2024 Address:[address] [place], [place] [address] Pcp:Isidro Arango MD Subjective: * Chief Complaints: [...] UT) Tablet 1 tablet Orally Once a oodFuetgtbuci-JZIH-Xbtfytwz 50-325-40 MG Capsule 1 capsule as needed [...] Tablet 1 tablet Orally Once a dayTaking Ipobzihtpp-VQAW-Jvhpdnda 50-325-40 MG Capsule 1 capsule as needed [...] Foot, left 3V?See Examination above * Procedure Codes:?99837 X-RAY EXAM OF RIGHT FOOT 3V, Modifiers: 26 , [id number] X- RAY EXAM OF LEFT FOOT 3V, [...] Interfil injection therapy, as well as surgical [place]/Endoscopic Fasciitomy surgical procedures if needed. Recommendations were [...] Provider:?Juanita Brunson DPM Date:?2023 Generated for Alan ferguson/Talat/Leanderitting on:?12/29/2024 11:24 AM EDT History and Physical Notes * HPI [...]
== END 2024-12-29 10:17 | disposition home or self-care (01) ==
LOC: HO.HAP 10:16
PROVIDERS: Visit Provider Internal Medicine
DX: Z13.89 Encounter for screening for other disorder (principal)

== ENCOUNTER 2025-01-18 12:08 | Outpatient (REF) | payer MEDICARE, SELFPAY ==
--- NOTE | ~2025-01-18 | MM_ITS ---
EXAMINATION: MM DIAGNOSTIC DIGITAL BREAST TOMOSYNTHESIS, BILATERAL Right limited ultrasound. CLINICAL INFORMATION: History of right breast cancer in 2021 status post lumpectomy. Patient has pain in the right axilla. COMPARISON: Mammography: Comparison is made with relevant prior exams. TECHNIQUE: Digital breast mammography with tomosynthesis is performed in both the craniocaudal and mediolateral oblique views along with computer-aided detection (CAD). FINDINGS: There are scattered areas of fibroglandular density (ACR BI-RADS breast composition Category b). Post right lumpectomy changes. There are no significant masses, abnormal calcifications, or other abnormalities. Targeted color Doppler ultrasound scanning in the area the patient's pain from 6-12 o'clock demonstrates normal fibronodular breast tissue. There is no sonographic abnormal findings. Results are provided to the patient at time of visit by the technologist. MM/MM tomosynthesis diagnostic BI IMPRESSION: Left: Negative. Right: Status post lumpectomy. No mammographic or sonographic abnormality to account for the patient's right breast pain. Recommend clinical evaluation and follow-up. Benign. ASSESSMENT: BI-RADS BI-RADS 2 - Benign Findings RECOMMENDATION: 1 year F/U This patient's information was entered into a reminder system with a target due date for their next mammogram. Electronically signed by: Orly Lane DO 01/18/2025 03:06 PM DIDIER
--- OUTSIDE RECORDS SUMMARY | 2025-01-18 12:51 | XMS_ITS ---
Author Organization [facility] Address [address] [place] [address] Care Team Providers Care Waste Examiner Name Role Phone Isidro Arango MD Primary Care Provider Unavaila ble Black, Juanita Unavailable [phone] REASON FOR VISIT BUY Comfort Plus w/Met Pad E / w 11-11.5 Encounters Encounter Location Date Provider Diagnosis [facility] [address] [place] [address] 05/30/2024 Juanita Brunson Plan Of Treatment No Information Progress Notes * Aminta DANGELO LDOB: 1945 (79 yo F)Acc No.[id number]:05/30/2024 Patient:?Bronson Dangelo :1945???Age:79 Y???Sex:Female Address: [place] [address] * true * Date:? Generated for Printi ng/Faxing/eTransmitting on:?01/18/2025 12:51 PM EDT
== END 2025-01-18 12:09 | disposition home or self-care (01) ==
LOC: HO.MAMMO 12:08
PROVIDERS: PCP Internal Medicine; Visit Provider Surgery
DX: N64.4 Mastodynia (principal)
CPT/HCPCS: 76642; 77062; 77066

== ENCOUNTER → 2025-01-18 12:30 | Outpatient (BNV) | payer MEDICARE, SELFPAY | PROVIDERS: PCP Internal Medicine; Visit Provider Internal Medicine | DX: N64.4 Mastodynia (principal); R92.323 Mammographic fibroglandular density, bilateral breasts | CPT/HCPCS: 76642; 77066; G0279 ==

== ENCOUNTER 2025-02-17 09:43 | Outpatient (AMB) | payer MEDICARE, SELFPAY ==
--- NOTE | 2025-02-17 09:45 | A.OFFVIS_ITS ---
Vital Signs 3 02/17/25 09:56 Height 5 ft 8 in Weight 186 lb BMI 28.3 BP 166/75 H Blood Pressure Location Lt brachial Position Sitting Pulse 67 Intake Visit Reasons: 6 month follow up, breast exam Intake Note: Patient is seen in office for 6 month follow up visit, breast exam. Pt c/o: denies any concerns us/mm:01/18/25 Technical Documentation Specialist Required: No Sea Air Land Officer: Sea Air Land Officer Present Accompanied by: Self / Same As Patient Allergies clindamycin (CLINDAMYCIN) Allergy (Severe, Verified 02/17/25 09:57) SEVERE RASH cefaclor (From CECLOR) Allergy (Intermediate, Verified 02/17/25 09:57) RASH hydrochlorothiazide (HYDROCHLOROTHIAZIDE) Allergy (Intermediate, Verified 02/17/25 09:57) MUSCLE CRAMPING Medication List - Last Reconciled 02/17/25 by Luis Fernando Batista MD atenolol (Tenormin) 25 mg PO DAILY atorvastatin 20 mg PO DAILY [Colace 100 mg PO NEEDED PRN] letrozole 2.5 mg PO DAILY lorazepam 0.5 mg PO BID PRN meclizine 25 mg PO TID PRN vit C,D-Tb-kbhyr-lutein-zeaxan 250-90-40-1 mg (PreserVision AREDS-2) 1 tab PO BID HPI Comments Details: 80-year-old female patient returning for a routine breast examination following right breast cancer surgery. 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 She subsequently underwent a right breast lumpectomy with needle localization and right axillary sentinel node biopsy on 02/10/2022. Pathology confirmed invasive carcinoma with lobular features, 9 mm with DCIS. One sentinel node lymph node was negative for tumor. Margins were wide widely negative for both invasive and DCIS. AJCC Stage (8th edition): pT1bN0 (sn)(i-). Oncotype Recurrence Score: 18, therefore no benefit of chemotherapy (<1%). She was evaluated by Dr. Oro on 03/05/[address] Borden. She started letrozole 2.5 mg p.o. daily. After discussion with radiation oncology decision was made to avoid the radiation therapy and treat only with the aromatase inhibitor. She does report bilateral knee, hip, and neck pain which seemed to develop after starting a new generic letrozole which she did not have on her original prescription. She denies any ongoing breast symptoms at this time. Her most recent mammogram and ultrasound performed on 01/18/2025 revealed stable postoperative changes in the right breast and no mammographic evidence of malignancy (BI-RADS 2). [facility] Medical History Meniere disease Migraines GERD (gastroesophageal reflux disease) HLD (hyperlipidemia) HTN (hypertension) Surgical History H/O removal of cyst (~12/22/85) History of lumpectomy of right breast (02/10/22) Hx of bilateral cataract extraction History of D&C History of removal of ovarian cyst History of appendectomy History of cholecystectomy History of lumpectomy of left breast Family History Father Lung cancer Maternal Aunt Breast cancer Uterine cancer Maternal Grandmother Throat cancer Carcinoma of nose Maternal Uncle Throat cancer Carcinoma of nose Brother Prostate CA Social History Household Members: Spouse Housing: House Alcohol intake: never Patient Tobacco Use Status: Never used Tobacco service: No Current occupational status: retired Female Reproductive History Menstrual Age of Menarche: 11 Review of Systems Const Denies chills, Denies fever(s), Denies headache(s) and Denies poor appetite ENT Denies dizziness and Denies headache(s) Card Denies chest pain, Denies rapid heart rate, Denies palpitations and Denies slow heart rate Resp Denies chest congestion, Denies cough, Denies pain on inspiration and Denies wheezing GI Denies abdominal pain, Denies bloating, Denies change in stool character, Denies constipation, Denies diarrhea, Denies nausea, Denies vomiting and Denies hematemesis Denies nipple discharge Musc Reports back pain, Reports arthralgias, Denies joint swelling and Denies numbness Skin/Breast Denies breast swelling, Denies breast skin changes, Denies breast pain, Denies breast mass, Denies change in breast shape, Denies change in pigmentation, Denies nipple discharge, Denies erythema and Denies rash Neuro Denies dizziness, Denies headache(s) and Denies numbness Psych Denies anxiety and Denies depression Endo Denies palpitations Obie/Lymph Denies easy bleeding, Denies easy bruising and Denies lymphadenopathy Aller/Immun Denies wheezing Physical Exam Vital Signs: Last Vital Signs Pulse 67 02/17/25 09:56 BP 166/75 H 02/17/25 09:56 BMI result Body Mass Index 28.3 Const General: cooperative, no acute distress and well developed Nutritional Appearance: well nourished Orientation/consciousness: patient oriented x3 Limitations: no limitations HEENT Head: Yes normocephalic and Yes atraumatic Ears: hearing grossly normal bilaterally Neck Neck: Yes no lymphadenopathy Chest Other: Right breast: Well-healed incision in the upper outer quadrant and axilla. Small red elba noted which appears to be a seborrheic keratosis. No palpable mass, nipple discharge, or enlarged lymph nodes appreciated. Left breast: No new skin change, nipple discharge, nipple retraction, palpable mass, or enlarged lymph nodes. Chest/axillae images: 2 1. 2. Resp Effort & Inspection: normal respiratory effort, no audible wheezes, no cough and no respiratory distress Skin Other: Warm, dry, no rash Neuro Other: Mobility Assessment: 1. 3 meter assessment time (seconds): 7 seconds 2. Gait observations: Normal balance and gait General: patient oriented x3 Extrem Other: No edema right upper extremity Assessment & Plan Assessment & Plan (1) Invasive ductal carcinoma of right breast: Code(s): C50.911 - Malignant neoplasm of unspecified site of right female breast Category: Medical Plan 80-year-old female patient returning following lumpectomy needle localization right breast, right axillary sentinel node biopsy. AJCC stage-pT1b N0. Prognostic Stage IA, ER/NM positive HER2 negative.? Ki-67 immunostain 15%. She completed her medical and radiation oncology evaluation and is currently taking letrozole. It was decided to hold off on radiation therapy. She generally feels well and occasionally notes some sharp pain in the right upper breast. Examination today revealed no suspicious findings in either breast. The right breast incisions are well healed. I recommended continued self examination on a monthly basis. Her most recent mammogram and ultrasound performed on 01/18/2025 revealed no mammographic or sonographic evidence of malignancy. She will be due for a follow-up mammogram in 1 year. I recommended follow-up examination in 6 months, sooner PRN. Coding Level of Care Code Est Pt Level 3 (14853) Complex EM visit Add On G2211 Diagnoses Invasive ductal carcinoma of right breast C50.911
[2025-02-17 09:56] VITALS: BP 166/75; PULSE 67; BMI 28.3
--- OUTSIDE RECORDS SUMMARY | 2025-02-17 10:12 | XMS_ITS | Patient Health Record ---
Author Organization [facility] Address [address] [place] [id number] Care Team Providers Care Artillery Maintenance Supervisor Name Role Phone Isidro Arango MD Primary Care Provider Clark De La Vega Jr Unavailable Allergies Allergen (clinical drug ingredient) Drug/Non Drug Allergy documented on EMR Reaction Allergy Type Onset Date Status hydrochlorothiazide Hydrochlorothiazide body cramps/night melendez Drug Allergy Active clindamycin Clindamycin HCl rash Drug Allergy Active cefaclor Ceclor (uncoded) Unknown Allergy Act igor Reason For Referral No Information Medications Medication SIG (Take, Route, Frequency, Duration) Notes Start Date End Date Status ZyrTEC Allergy 10 MG 1 tablet Orally prn Active Aspir-81 81 MG 1 tablet Orally Once a day Active Colyte with Flavor Packs 240 GM As directed Orally Over the specified time. for 1 day(s) Active LORazepam 0.5 MG 2 tablet as needed O rally prn Active Meclizine HCl 25 MG 1 tablet as needed O rally TID/PRN Active Mjtjuosqmn-DHI-Pfplujfu 50-325-40 MG 1 capsule as needed Orally prn Active Atenolol 25 MG 1 tablet Orally Once a day Active Atorvastatin Calcium 20 MG 1 tablet Oral ly Once a day Active Problems Problem Type SNOMED Code ICD Code Onset Dates Problem Status W/U Status Risk Notes Problem 007865573 Colon cancer screening (Z12.11) Active confirmed Problem 477894824 Gastroesophageal reflux disease without esophagitis (K21.9) Active confirmed Problem 199898043 Long-term use of aspirin therapy (Z79.82) Active confirmed Plan Of Treatment Future Test Test Name Order Date COLONOSCOPY 03/31/2012 COLONOSCOPY 09/10/2017 Insurance Providers Payer Name Payer Address Payer Phone Subscriber Number Group Number Insured Name Patient Relationship to Insured Coverage Start Date Coverage End Date [facility] [address] [facility] [place], [place] [phone] [id number] JOHN SAINZ Self - patient is the insured Medical (General) History Medical History History ICD Code EGD 01/01/2007 Hypertension GERD Meniere's disease Migraine headaches elevated cholesterol abdominal cysts palpitations- brought on by anxiety pneumonia- as child colonoscopy 06/04/12 Surgical History Surgery Date(Month/Year) benign breast biopsies right Oophorectomy for cystic disease Appendectomy D&C cholecystectomy
== END 2025-02-17 10:11 | disposition home or self-care (01) ==
LOC: HO.HGS 09:44
PROVIDERS: PCP Internal Medicine; Visit Provider Surgery
DX: C50.911 Malignant neoplasm of unspecified site of right female breast (principal)
CPT/HCPCS: 99213; G2211

== ENCOUNTER → 2025-02-17 09:43 | Outpatient (BNVA) | payer MEDICARE, SELFPAY | PROVIDERS: PCP Internal Medicine; Visit Provider Surgery | DX: Z71.2 Person consulting for explanation of examination or test findings (principal); C50.411 Malignant neoplasm of upper-outer quadrant of right female breast; Z98.890 Other specified postprocedural states | CPT/HCPCS: 99212 ==